=== PATIENT | female | born 1950 | race Caucasian/White ===

== ENCOUNTER 2017-10-27 12:34 | Observation (INO) | payer MEDICARE, OTHER ==
[2017-10-27] MEDS ORDERED: Zofran 4 MG/2 ML VIAL IV ONE (13:04)
[2017-10-27] MEDS ORDERED: MORPHINE SULFATE 4 MG INJ IV ONE (13:04)
[2017-10-27] MEDS ORDERED: Sodium Chloride 0.9% 1000 ML 1,000 ML IV STA (13:04)
--- NOTE | 2017-10-27 13:10 | ERPHSYRPT ---
- History of Present Illness Time Seen by Provider: 10/27/17 12:57 Historian: patient Exam Limitations: no limitations Patient Subjective Stated Complaint: patient has hernia supposed to see dr watt on saturday but pain is to severe and having trouble keeping food down. has not taken any of her home medicines since yesterday. Triage Nursing Assessment: patient alert and oriented x3, lung sounds clear, skin warm , dry , and intact. large umbilical hernia present, bowel sounds present x4, nontender to palpation, but experiences pain when moves around. pedal pulses present, pulses present bilateral radius. Physician History: 67-year-old morbidly obese white female arrives with complaint of abdominal pain states she's been unable to keep any food down's she states she's been vomiting for a week. She apparently has an appointment to see Dr. Watt next Saturday 5 days. she states she has not been taking her medications since yesterday because she is afraid she will vomit if she eats with them. Patient does have a history of umbilical hernia Past medical history includes COPD, arthritis, umbilical hernia, depression, fibroids, fibromyalgia, high blood pressure Old chart shows diet-controlled diabetes patient disputes this patient does have a history of chronic knee pain she is on MS Contin for this Past surgical history patient states she's had a D&C Social history denies tobacco alcohol or illicit drug use Timing/Duration: week(s) (one week) Activities at Onset: none Quality: cramping Abdominal Pain Onset Location: periumbilical Pain Radiation: no radiation Severity of Pain-Max: moderate Severity of Pain-Current: moderate Modifying Factors: Improves With: nothing Associated Symptoms: nausea, vomiting, No back, No chest pain, No diaphoresis, No diarrhea, No fever/chills, No fatigue, No headache, No heartburn, No loss of appetite, No neck pain, No rash, No shortness of breath, No syncope Previous symptoms: other (history of umbilical hernia) Allergies/Adverse Reactions: latex Allergy (Verified 07/17/16 13:23) erythromycin base Adverse Reaction (Severe, Verified 06/22/15 11:24) Nausea Sulfa (Sulfonamide Antibiotics) Adverse Reaction (Severe, Verified 06/22/15 11: 24) Nausea Home Medications: ALPRAZolam [Xanax 0.5 mg] 0.5 mg PO TID PRN PRN 06/22/15 [History] Duloxetine HCl 30 mg [Cymbalta 30 MG Capsule] 60 mg PO DAILY 06/22/15 [ History] Hydrocodone/Acetaminophen [Hydrocodone-Acetamin 10-325 mg] 1 each PO Q6H [History] Lisinopril 20 mg [Zestril 20 MG] 20 mg PO DAILY 06/22/15 [History] Magnesium Oxide 400 mg [Mag-Ox 400] 400 mg PO DAILY 06/22/15 [History] Morphine Sulfate Cr 60 mg [Ms Contin 60 mg] 60 mg PO Q12H 06/22/15 [ History] Albuterol 8 gm Mdi Hfa [Ventolin Hfa MDI] 2 puff IH Q4H 07/17/16 [History] Furosemide 40 mg [Lasix 40 MG] 40 mg PO DAILY 07/17/16 [History] Naproxen [Naprosyn] 500 mg PO BID 07/17/16 [History] Potassium Chloride 10 Meq Tab* [Klor Con 10 MEQ] 10 meq PO DAILY 07/17/16 [ History] Hx Tetanus, Diphtheria Vaccination/Date Given: Yes Hx Influenza Vaccination/Date Given: No Hx Pneumococcal Vaccination/Date Given: No Immunizations Up to Date: Yes - Review of Systems Constitutional: No Fever, No Chills Eyes: No Symptoms Ears, Nose, & Throat: No Symptoms Respiratory: No Cough, No Dyspnea Cardiac: No Chest Pain, No Edema, No Syncope Abdominal/Gastrointestinal: Abdominal Pain, Nausea, Vomiting, No Diarrhea, No Constipation, No Hematemesis, No Hematochezia, No Melena, No Dysphagia, No Appetite Changes Genitourinary Symptoms: No Dysuria Musculoskeletal: No Back Pain, No Neck Pain Skin: No Rash Neurological: No Dizziness, No Focal Weakness, No Sensory Changes Psychological: No Symptoms Endocrine: No Symptoms All Other Systems: Reviewed and Negative - Past Medical History Pertinent Past Medical History: Yes Neurological History: No Pertinent History, Other ENT History: No Pertinent History Cardiac History: Hypertension Respiratory History: COPD Endocrine Medical History: No Pertinent History Musculoskeletal History: Osteoarthritis GI Medical History: Hernia History: No Pertinent History Psycho-Social History: Depression Female Reproductive Disorders: Fibroids, Other Other Medical History: depression - Past Surgical History Past Surgical History: Yes Neuro Surgical History: No Pertinent History Cardiac: No Pertinent History Respiratory: No Pertinent History Gastrointestinal: No Pertinent History Genitourinary: No Pertinent History Musculoskeletal: No Pertinent History Female Surgical History: Other Other Surgical History: D&C - Social History Smoking Status: Never smoker Exposure to second hand smoke: Yes Drug Use: none Patient Lives Alone: No - Female History Hx Now: No - Nursing Vital Signs Nursing Vital Signs: Initial Vital Signs Temperature 98.9 F 10/27/17 12:35 Pulse Rate 117 H 10/27/17 12:35 Respiratory Rate 20 10/27/17 12:35 Blood Pressure 160/83 10/27/17 12:35 O2 Sat by Pulse Oximetry 98 10/27/17 12:35 Pain Scale Pain Intensity 4 - Physical Exam General Appearance: mild distress Eye Exam: PERRL/EOMI, eyes nml inspection Ears, Nose, Throat Exam: normal ENT inspection, pharynx normal, moist mucous membranes Neck Exam: normal inspection, non-tender, supple, full range of motion Respiratory Exam: normal breath sounds, lungs clear, No respiratory distress Cardiovascular Exam: regular rate/rhythm, normal heart sounds Gastrointestinal/Abdomen Exam: soft, normal bowel sounds, other (abdomen obese mild tenderness over her umbilicus, hernia at umbilicus) Back Exam: normal inspection, normal range of motion, No CVA tenderness, No vertebral tenderness Extremity Exam: normal inspection, normal range of motion, pelvis stable Neurologic Exam: alert, oriented x 3, cooperative, normal mood/affect, nml cerebellar function, sensation nml, No motor deficits Skin Exam: normal color, warm, dry SpO2 Interpretation: normal (98%) SpO2: 98 Oxygen Delivery: Room Air - Course Nursing assessment & vital signs reviewed: Yes - CT Exams Abdomen/Pelvis CT Interpretation: Tele-radiologist Report (him CT abdomen and pelvis with contrast:suspected duodenal ulcer disease with 2 droplets of air versus diverticuli focally within the fat. Periumbilical fat-containing and small bowel containing hernia without obstruction. Suspect small gallstones. Fatty large liver. Nodules noted within the lung bases this is incompletely visualized on the left.) Ordered Tests: Active Orders 24 hr Category Date Time Status Accucheck STAT Care 10/27/17 13:05 Active IV Insertion STAT Care 10/27/17 13:04 Active ABDOMEN AND PELVIS W CONTRAST [CT] Stat Exams 10/27/17 13:53 Taken AMYLASE Stat Lab 10/27/17 13:20 Completed CBC W DIFF Stat Lab 10/27/17 13:20 Completed CMP Stat Lab 10/27/17 13:20 Completed CULTURE,URINE Stat Lab 10/27/17 14:06 Received LIPASE Stat Lab 10/27/17 13:20 Completed UA W/ MICROSCOPIC Stat Lab 10/27/17 14:06 Completed Medication Summary Discontinued Medications Generic Name Dose Route Start Last Admin Trade Name Joaquimq PRN Reason Stop Dose Admin Sodium Chloride 1,000 mls @ 999 mls/hr 10/27/17 13:04 10/27/17 13:27 Sodium Chloride 0.9% 1000 Ml IV 10/27/17 14:04 999 mls/hr .Q1H1M STA Administration Sodium Chloride Confirm 10/27/17 13:25 Sodium Chloride 0.9% 1000 Ml Administered 10/27/17 13:26 Dose 1,000 mls @ ud .ROUTE .STK-MED ONE Morphine Sulfate 4 mg 10/27/17 13:04 10/27/17 13:27 Morphine Sulfate 4 Mg Inj IV 10/27/17 13:05 4 mg STAT ONE Administration Morphine Sulfate Confirm 10/27/17 13:25 Morphine Sulfate 4 Mg Inj Administered 10/27/17 13:26 Dose 4 mg .ROUTE .STK-MED ONE Ondansetron HCl 4 mg 10/27/17 13:04 10/27/17 13:27 Zofran 4 Mg/2 Ml Vial IV 10/27/17 13:05 4 mg STAT ONE Administration Ondansetron HCl Confirm 10/27/17 13:24 Zofran 4 Mg/2 Ml Vial Administered 10/27/17 13:25 Dose 4 mg .ROUTE .STK-MED ONE Promethazine HCl 12.5 mg 10/27/17 14:34 10/27/17 14:41 Phenergan 25 Mg Inj IV 10/27/17 14:35 12.5 mg STAT ONE Administration Promethazine HCl Confirm 10/27/17 14:37 Phenergan 25 Mg Inj Administered 10/27/17 14:38 Dose 25 mg .ROUTE .STK-MED ONE Lab/Rad Data: Laboratory Result Diagrams 10/27/17 13:20 10/27/17 13:20 Laboratory Results 10/27/17 10/27/17 10/27/17 Range/Units 14:06 13:20 13:20 WBC 8.3 (4.0-10.5) K/mm3 RBC 4.76 (4.1-5.4) M/mm3 Hgb 12.3 (12.0-16.0) gm/dl Hct 38.7 (35-47) % MCV 81.3 (78-100) fl MCH 25.8 L (26-32) pg MCHC 31.8 L (32-36) g/dl RDW 14.0 (11.5-14.0) % Plt Count 166 (150-450) K/mm3 MPV 11.9 H (6-9.5) fl Gran % 72.8 H (36.0-66.0) % Eos # (Auto) 0.15 (0-0.5) Absolute Lymphs (auto) 1.55 (1.0-4.6) Absolute Monos (auto) 0.52 (0.0-1.3) Lymphocytes % 18.7 L (24.0-44.0) % Monocytes % 6.3 (0.0-12.0) % Eosinophils % 1.8 (0.00-5.0) % Basophils % 0.4 (0.0-0.4) % Absolute Granulocytes 6.06 (1.4-6.9) Basophils # 0.03 (0-0.4) Sodium 140 (137-145) mmol/L Potassium 4.2 (3.5-5.1) mmol/L Chloride 102 (98-107) mmol/L Carbon Dioxide 29 (22-30) mmol/L Anion Gap 12.4 (5-15) MEQ/L BUN 12 (7-17) mg/dL Creatinine 0.82 (0.52-1.04) mg/dL Estimated GFR > 60.0 ML/MIN Glucose 127 H (74-106) mg/dL Calcium 9.4 (8.4-10.2) mg/dL Total Bilirubin 0.60 (0.2-1.3) mg/dL AST 22 (14-36) U/L ALT 20 (0-35) U/L Alkaline Phosphatase 97 (38-126) U/L Serum Total Protein 6.4 (6.3-8.2) g/dL Albumin 3.6 (3.5-5.0) g/dL Amylase 37 (30-110) U/L Lipase 46 (23-300) U/L Ur Collection Type CLEAN CATCH Urine Color YELLOW (YELLOW) Urine Appearance HAZY (CLEAR) Urine pH 8.0 (5-6) Ur Specific [place] 1.005 (1.005-1.025) Urine Protein NEGATIVE (Negative) Urine Ketones NEGATIVE (NEGATIVE) Urine Blood 5-10 (0-5) Seth/ul Urine Nitrite NEGATIVE (NEGATIVE) Urine Bilirubin NEGATIVE (NEGATIVE) Urine Urobilinogen NORMAL (0-1) mg/dL Ur Leukocyte Esterase 2+ (NEGATIVE) Urine Microscopic RBC 0-2 (0-2) /HPF Urine Microscopic WBC 5-10 (0-5) /HPF Ur Epithelial Cells MODERATE (FEW) /HPF Urine Bacteria FEW (NEGATIVE) /HPF Urine Culture Reflexed YES (NO) Urine Glucose NEGATIVE (NEGATIVE) mg/dL Specimen Received 10/27/17 1310 - Progress Progress: improved Progress Note: 10/27/17 16:24 Contacted by virtual radiology Patient with an anterior abdominal wall periumbilical hernia containing nonobstructive small bowel loops. There are inflammatory changes noted by the proximal third portion of the duodenum there are 2 droplets of air noted image 34 series 2. These could be within diverticula of the duodenum however, small focal droplets of air cannot be excluded from ulcer disease or small focal perforation no mucosal thickening. Patient with normal white count 10/27/17 16:34 I've discussed patient's case with Dr. Tompkins. Patient does have a normal white count she does not have exquisite pain she has however not eaten well for a week per her report. Labs are essentially normal. Will consider placing patient on observation providing IV fluids keep patient nothing by mouth provide pain medicine. Will plan on surgery consult and will discuss case with the surgeon. 10/27/17 16:43 Case is discussed with Dr. Hernandez, he feels it is unlikely to have a perforation patient does not have a white count and this would be an unusual location. Patient will be placed on observation To nothing by mouth. Diagnosis nausea and vomiting. Umbilical hernia Periumbilical pain - Departure Time of Disposition: 16:44 Departure Disposition: Observation Clinical Impression: Vomiting Qualifiers: Vomiting type: unspecified Vomiting Intractability: unspecified Nausea presence : with nausea Qualified Code(s): R11.2 - Nausea with vomiting, unspecified Abdominal pain Qualifiers: Abdominal location: periumbilical Qualified Code(s): R10.33 - Periumbilical pain Umbilical hernia Qualifiers: Obstruction and gangrene presence: without obstruction or gangrene Qualified Code(s): K42.9 - Umbilical hernia without obstruction or gangrene Condition: Fair Critical Care Time: No Referrals: YOKO WATT [Primary Care Provider] -
[2017-10-27] MEDS ORDERED: Zofran 4 MG/2 ML VIAL ONE (13:24)
[2017-10-27] MEDS ORDERED: Sodium Chloride 0.9% 1000 ML 1,000 ML ONE (13:25)
[2017-10-27] MEDS ORDERED: MORPHINE SULFATE 4 MG INJ ONE (13:25)
[2017-10-27 13:31] LABS: BASOPHIL % 0.4 % (0.0-0.4); Basophil (Absolute #) 0.03 (0-0.4); Eosinophil % 1.8 % (0.00-5.0); Eosinophil (Absolute #) 0.15 (0-0.5); Granulocyte Absolute (ANC) 6.06 (1.4-6.9); Granulocytes % 72.8 % (36.0-66.0); Hematocrit 38.7 % (35-47); Hemoglobin 12.3 gm/dl (12.0-16.0); Lymphocyte (Absolute #) 1.55 (1.0-4.6); Lymphocytes % 18.7 % (24.0-44.0); Mean Cell Volume 81.3 fl (78-100); Mean Corpuscular Hemoglobin 25.8 pg (26-32); Mean Corpuscular Hgb Concent. 31.8 g/dl (32-36); Mean Platelet Volume 11.9 fl (6-9.5); Monocyte (Absolute #) 0.52 (0.0-1.3); Monocytes % 6.3 % (0.0-12.0); Platelet Count 166 K/mm3 (150-450); Red Blood Count 4.76 M/mm3 (4.1-5.4); White Blood Count 8.3 K/mm3 (4.0-10.5)
[2017-10-27 13:48] LABS: ALBUMIN 3.6 g/dL (3.5-5.0); ALKALINE PHOSPHATASE 97 U/L (38-126); AMYLASE 37 U/L (30-110); ANION GAP 12.4 MEQ/L (5-15); BLOOD UREA NITROGEN 12 mg/dL (7-17); CHLORIDE 102 mmol/L (98-107); Calcium 9.4 mg/dL (8.4-10.2); Carbon Dioxide 29 mmol/L (22-30); Creatinine 1 0.82 mg/dL (0.52-1.04); Glucose 127 mg/dL (74-106); LIPASE 46 U/L (23-300); Potassium 4.2 mmol/L (3.5-5.1); SGOT/AST 22 U/L (14-36); SGPT/ALT 20 U/L (0-35); SODIUM 140 mmol/L (137-145); Total Protein 6.4 g/dL (6.3-8.2)
[2017-10-27 14:27] LABS: Appearance HAZY (CLEAR); Bilirubin NEGATIVE (NEGATIVE); Glucose NEGATIVE (NEGATIVE); Ketones NEGATIVE (NEGATIVE); Leukocyte Esterase 2+ (NEGATIVE); Nitrite NEGATIVE (NEGATIVE); Protein,Urine Dip NEGATIVE (Negative); Specific Gravity 1.005 (1.005-1.025); Urobilinogen NORMAL mg/dL (0-1)
[2017-10-27 14:34] LABS: Bacteria FEW /HPF (NEGATIVE); Epithelial Cells MODERATE /HPF (FEW); RBC 0-2 /HPF (0-2)
[2017-10-27] MEDS ORDERED: Phenergan 25 MG INJ IV ONE (14:34)
[2017-10-27] MEDS ORDERED: Phenergan 25 MG INJ ONE (14:37)
[2017-10-27] MEDS ORDERED: PROTONIX 40 MG IV IV ONE (17:25)
[2017-10-27] MEDS: PROTONIX 40 MG IV IV SCH (17:28)
[2017-10-27] MEDS: MORPHINE SULFATE 4 MG INJ IV PRN (17:28)
[2017-10-27] MEDS: Sodium Chloride 0.9% 1000 ML 1,000 ML IV SCH (17:31)
[2017-10-27] MEDS: Zofran 4 MG/2 ML VIAL IV PRN (19:10)
--- NOTE | 2017-10-27 21:11 | XRAY ---
Indication: Nausea and vomiting. Multiple contiguous axial images obtained through the abdomen and pelvis using 80 cc of Isovue-370 contrast only. Comparison: None Lung bases demonstrates tiny 3-4 mm left lateral noncalcified nodule. Heart is not enlarged. Noncontrasted stomach and bowel loops appear nonobstructed. Query descending and transverse duodenal wall thickening possible duodenitis. Moderate-sized umbilical hernia with herniated omental fat and small bowel loops without incarceration/obstruction. Normal appendix. Mild descending/sigmoid diverticulosis without diverticulitis. No free fluid/air. Minimal gallbladder sludge. Fatty liver. Remaining liver, gallbladder, pancreas, spleen, adrenal glands, kidneys, ureters, bladder, and uterus appear unremarkable. Mild aortoiliac calcifications. No AAA or pathologic retroperitoneal lymphadenopathy. Osseous structures intact with moderate degenerative changes throughout the spine. Impression: 1. Query duodenal wall thickening, possible duodenitis. Correlate clinically. 2. Moderate-sized umbilical hernia with herniated omental fat and small bowel loops. 3. Colonic diverticulosis. 4. Gallbladder sludge. 5. Fatty liver. 6. Left lower lobe noncalcified micronodule probably granulomatous in this demographic. Comment: Preliminary interpretation was made by [facility]. No discrepancy. CTDI 23.68
[2017-10-28] MEDS: Zosyn 3.375GM/100 Ml D5W 3.375 GM/100 ML IVPB IV SCH ×5 (01:22→23:43)
[2017-10-28] MEDS ORDERED: FEVERALL 650 MG ONE (01:33)
[2017-10-28] MEDS ORDERED: FEVERALL 650 MG PR PRN (01:38)
[2017-10-28] MEDS: Zofran 4 MG/2 ML VIAL IV PRN ×3 (01:40→20:06)
[2017-10-28] MEDS: Sodium Chloride 0.9% 1000 ML 1,000 ML IV SCH ×3 (03:24→23:43)
[2017-10-28] MEDS: MORPHINE SULFATE 4 MG INJ IV PRN (04:49)
[2017-10-28 05:30] LABS: Granulocyte Absolute (ANC) 3.72 (1.4-6.9); Hematocrit 36.7 % (35-47); Hemoglobin 11.5 gm/dl (12.0-16.0); Mean Cell Volume 81.4 fl (78-100); Mean Corpuscular Hgb Concent. 31.3 g/dl (32-36); Mean Platelet Volume 11.5 fl (6-9.5); Platelet Count 128 K/mm3 (150-450); Red Blood Count 4.51 M/mm3 (4.1-5.4); Red Cell Distribution Width 14.1 % (11.5-14.0); White Blood Count 4.6 K/mm3 (4.0-10.5)
[2017-10-28 05:36] LABS: Mean Corpuscular Hemoglobin 25.4 pg (26-32)
[2017-10-28 05:42] LABS: ALBUMIN 3.1 g/dL (3.5-5.0); ANION GAP 11.4 MEQ/L (5-15); BILIRUBIN,TOTAL 0.9 mg/dL (0.2-1.3); Calcium 8.7 mg/dL (8.4-10.2); Creatinine 1 1.06 mg/dL (0.52-1.04); Potassium 4.1 mmol/L (3.5-5.1); Total Protein 5.8 g/dL (6.3-8.2)
[2017-10-28 05:52] LABS: Lymphocytes 4 % (24-44); Monocyte 1 % (0.0-12.0); Neutrophils 95 % (36.0-66.0); Total Cells Counted 100
[2017-10-28 05:53] LABS: Platelet Estimate NORMAL (NORMAL)
[2017-10-28] MEDS ORDERED: Ventolin Hfa MDI IH PRN (08:10)
[2017-10-28] MEDS ORDERED: xanAX 0.5 MG PO PRN (08:10)
[2017-10-28] MEDS ORDERED: PROVENTIL COMMON CANISTER IH PRN (08:15)
[2017-10-28] MEDS: Cymbalta 30 MG Capsule PO SCH (08:54)
[2017-10-28] MEDS: Zestril 20 MG PO SCH (08:55)
[2017-10-28] MEDS: Klor Con 10 MEQ PO SCH (08:55)
[2017-10-28] MEDS: MS CONTIN 30 MG PO SCH ×3 (08:55→21:52)
[2017-10-28] MEDS: Lasix 40 MG PO SCH (08:55)
[2017-10-28] MEDS: PROTONIX 40 MG IV IV SCH ×2 (08:55→21:52)
[2017-10-28] MEDS: MAG-OX 400 PO SCH (08:55)
[2017-10-28] MEDS ORDERED: MORPHINE SULFATE 30 MG PO SCH (10:00)
--- NOTE | 2017-10-28 10:21 | HP ---
CHIEF COMPLAINT: Abdominal pain. HISTORY OF PRESENT ILLNESS: The patient is a 67 year-old white female who has been having problems with abdominal pain over the past few weeks. She currently has increasing abdominal pain and presented herself to the emergency room where she was subsequently admitted to the hospital for further evaluation and management. PAST MEDICAL HISTORY: Significant for chronic obstructive pulmonary disease, arthritis, umbilical hernia, depression, uterine fibroids, fibromyalgia, hypertension, degenerative joint disease of the knees. PAST SURGICAL HISTORY: D&C. FAMILY HISTORY: Noncontributory. SOCIAL HISTORY: She does not smoke or drink. PHYSICAL EXAMINATION: Revealed a morbidly obese white female currently in no obvious distress. Most recent vital signs from the emergency room showed temperature 98.9F, pulse 117, respiratory rate 20, blood pressure 160/93. O2 saturation 98% on room air. HEENT: Normocephalic, atraumatic. Pupils equal round reactive to light. Extraocular movements intact. Oropharynx is dry. NECK: Supple without lymphadenopathy, thyromegaly or JVD. CHEST: Clear to auscultation with good air movement bilaterally. HEART: Regular rate and rhythm without murmurs, rubs or gallops. ABDOMEN: Diffusely tender. There is periumbilical hernia area noted which is quite tender. No palpable masses are felt otherwise. EXTREMITIES: Without clubbing, canosis or edema. NEUROLOGIC: The patient is alert and oriented x3. LAB DATA AND TESTS: CT scan showed what appeared to be possible duodenal ulcer with micro-perforation and also noted periumbilical fat containing small bowel, also suspect gallbladder stones and fatty liver. The patient's labs otherwise showed her white blood cell count 8,300, hemoglobin 12.3, PLT count 166,000. Metabolic panel was essentially normal other than sugar at 127. UA was likewise essentially normal, specific gravity 1.005. ASSESSMENT: Abdominal pain, hernia, duodenitis, possible duodenal ulcer with micro-perforation and possible gallbladder stones. Surgical consultation will be obtained. The patient has been placed on Zosyn empirically and will likely need herniorrhaphy and possible attention paid to her duodenum with evaluation by the surgeon as it potentially contains perforation.
[2017-10-29] MEDS: Zosyn 3.375GM/100 Ml D5W 3.375 GM/100 ML IVPB IV SCH ×2 (05:26→11:52)
[2017-10-29] MEDS: MS CONTIN 30 MG PO SCH ×2 (05:26→14:48)
--- NOTE | 2017-10-29 08:12 | CONS ---
CONSULT DATE: 10/28/2017 This patient is seen for Dr. Charanjit Hernandez who was consulted over the weekend when the patient came in. HISTORY: A 67 year-old morbidly obese female came in and was having some nausea, vomiting and some upper abdominal pain. She does have chronic ventral hernia that she has had for years. It has bowel loops in it that are not incarcerated, soft. PAST MEDICAL HISTORY: Obesity, chronic obstructive pulmonary disease, arthritis. She has had chronic hernia. She has depression, fibromyalgia, hypertension, chronic back and neck problems. She had a neck injection. She is followed by the pain clinic. She is on oral morphine down in [place]. She has known about this hernia for some time. PAST SURGICAL HISTORY: She had D&C in the past. HOME MEDICATIONS: Includes Xanax, Cymbalta. She takes hydrocodone 10 as well as morphine sulfate 60, MS Contin 60. She takes magnesium oxide, lisinopril, Albuterol MDI HFA, Furosemide, Naprosyn and potassium chloride. ALLERGIES: LATEX, ERYTHROMYCIN BASE, SULFA. FAMILY HISTORY: Negative in regards to this problem. SOCIAL HISTORY: She quit smoking 20 years ago. No alcohol abuse. REVIEW OF SYSTEMS: Twelve systems reviewed pertinent for obesity. She does have some stasis dermatitis. She did have loose bowel movements since she has been on antibiotics here. No chest pain or palpitations, pertinent for multiple chronic pain, chronic lung disease, chronic hernia, chronic illnesses. PHYSICAL EXAMINATION: GENERAL: No acute distress. HEENT: Sclera nonicteric. NECK: No JVD. CHEST: Equal excursion, nonlabored breathing. CVS: Regular rate and rhythm. ABDOMEN: Obese, soft. She has got some mild tenderness in right upper quadrant. No rebound currently. She has got chronic soft mid abdominal ventral hernia. LAB DATA AND TESTS: White blood cell count 8.2 on admission. Liver function tests unremarkable. Hemoglobin 12.3, PLT 166,000. CT scan showed question of inflammation duodenum, question of some micro-perforation. She has some maybe small stones or sludge in the gallbladder. She has chronic abdominal hernia with some bowel but not obstructing. No evidence of strangulation or incarceration. IMPRESSION: Some abdominal pain, nausea, vomiting. CT scan suggests possible duodenitis, duodenal ulcer possible micro-perforation. Continue bowel rest. Increase Protonix to b.i.d. likely would benefit from letting this heal a little longer possibly doing Gastrografin, upper GI studies tomorrow. There is no evidence of leak. Advance her diet as her hernia is chronic and does not need emergent intervention. Should she have persistent duodenal ulcer, if she needed surgical intervention regarding that could consider repairing the hernia but we are not able to repair with the prison mesh so likely would have much higher recurrence rate. Otherwise continue bowel rest. Start the Gastrografin upper GI tomorrow if no leak, maybe advance her diet. If she is able to advance her diet she could be seen as an outpatient follow up with Dr. Hernandez for outpatient endoscopy and eventual elective hernia repair. Otherwise if there is no leak and she is unable to keep diet down, could consider further biliary work up although there is no wall thickening or suggestion of acute cholecystitis at this time. Either way no emergent surgery necessary. I am seeing this patient for Dr. Charanjit Hernandez who will likely be the one to proceed. Eventually she will need elective repair of hernia. It is not emergent now as it is soft and do not feel it is causing her current issues with ulcer disease and micro-perforation or she could have some variation of biliary colic. Either way she needs continued bowel rest, proton pump inhibitor, follow up with Gastrografin upper GI. If no leak advance her diet. If she is able to advance her diet in the hospital follow up in the office with Dr. Hernandez for follow up endoscopy who will eventually address her ventral hernia. She expressed her understanding. No emergent surgery necessary at this point. Again, this patient was seen for Dr. Charanjit Hernandez who was electronic scale assembler and tester when the consult came in. Thank you for the consult.
[2017-10-29] MEDS: Zestril 20 MG PO SCH ×2 (09:49→10:25)
[2017-10-29] MEDS: Klor Con 10 MEQ PO SCH ×2 (09:49→10:25)
[2017-10-29] MEDS: Cymbalta 30 MG Capsule PO SCH ×2 (09:49→10:25)
[2017-10-29] MEDS: MAG-OX 400 PO SCH ×2 (09:49→10:25)
[2017-10-29] MEDS: Lasix 40 MG PO SCH (09:49)
[2017-10-29] MEDS: PROTONIX 40 MG IV IV SCH ×2 (09:49→10:25)
[2017-10-29] MEDS ORDERED: ENOXAPARIN SODIUM SQ SCH (10:00)
--- NOTE | 2017-10-29 10:20 | XRAY ---
Indication: Nausea and vomiting. Burning sensation. Known umbilical hernia. Single contrast upper GI exam was performed using Gastrografin as ordered. Due to patient body habitus and weight limit of the fluoroscopy table, the exam was performed with the patient standing. Patient ingested diluted Gastrografin without miss swallow or aspiration. Esophagus is normal in course and caliber without focal stricture, obstruction, or filling defect. No hiatal hernia. Gastrografin freely emptied into the stomach. Stomach is mildly distended. No obvious acute ulcerations or filling defect. Normal duodenal cap and sweep. Impression: Negative limited single contrast upper GI exam. Approximately 0.9 minute fluoroscopy used.
[2017-10-29 16:19] VITALS: BP 120/78; PULSE 92; O2SAT 98
--- NOTE | 2017-10-31 10:13 | DS ---
DISCHARGE DIAGNOSES: 1) UMBILICAL HERNIAS WITH LOOPS OF BOWEL PRESENT. 2) PEPTIC ULCER DISEASE WITH POSSIBLE MICROPERFORATION. 3) CHOLELITHIASIS. CONSULTANTS: Dr. Wero Boone. HOSPITAL COURSE: The patient is a 67 year-old white female who presented to the emergency room with abdominal pain. She is known to have hernia. On evaluation in the emergency room a CT scan showed possible duodenal ulcer with tiny air pockets concerning for the possibility of microperforation. The patient had surgical consultation from Dr. Boone who felt that she was not an acute abdomen. He thought the patient should have hernia repair under elective basis. The patient was placed empirically on IV antibiotics of Zosyn for coverage. The patient did develop positive urine culture which sensitive to the Zosyn. The patient had a Gastrografin upper GI examination which revealed no perforation and no obstruction. The patient appeared to be doing well as far as ambulation and pain level and moving around in the bed nicely. She was able to get up and move around and was given diet which she tolerated. She was felt to be ready for discharge home by the afternoon of 10/29/2017 with follow up in Dr. Boone's office within the week and my office as well. She is to return to the hospital for any problems with increasing abdominal pain in the interim.
== END 2017-10-29 16:35 | disposition home or self-care (01) ==
LOC: ED 12:34 → MED SURG 17:04
PROVIDERS: ADMIT Family Medicine; ATTEND Family Medicine
DX: K42.0 Umbilical hernia with obstruction, without gangrene (principal); K26.9 Duodenal ulcer, unspecified as acute or chronic, without hemorrhage or perforation; K80.20 Calculus of gallbladder without cholecystitis without obstruction; J44.9 Chronic obstructive pulmonary disease, unspecified; M19.90 Unspecified osteoarthritis, unspecified site; F32.9 Major depressive disorder, single episode, unspecified; D25.9 Leiomyoma of uterus, unspecified; M79.7 Fibromyalgia; I10 Essential (primary) hypertension; M17.9 Osteoarthritis of knee, unspecified; K59.00 Constipation, unspecified; E66.01 Morbid (severe) obesity due to excess calories; E11.9 Type 2 diabetes mellitus without complications; I87.2 Venous insufficiency (chronic) (peripheral); Z79.899 Other long term (current) drug therapy; Z87.891 Personal history of nicotine dependence
CPT/HCPCS: 36000; 36415; 74177; 74246; 80053; 81000; 82150; 82962; 83690; 85025; 87040; 87077; 87086; 87186; 94760; 96360; 96374; 96375; 99285; G0378; J1650; J2270; J2405; J2543; J2550; A9270-GY

== ENCOUNTER 2017-12-26 09:30 | Day surgery (SDC) | payer MEDICARE, OTHER ==
[~2017-12-26 09:30] MED LIST: Lactated Ringers 1,000 ML IV ONE; Lactated Ringers 1,000 ML IV SCH
[2017-12-26] MEDS ORDERED: Ketamine HCl 50 MG/ML IV ONE (09:31)
[2017-12-26] MEDS ORDERED: DIPRIVAN 200 MG/20 ML IV ONE (09:31)
[2017-12-26 14:08] VITALS: PULSE 95
[2017-12-26 14:09] VITALS: BP 142/75; O2SAT 95
--- NOTE | 2017-12-26 14:15 | OP ---
SURGERY DATE/TIME: 12/26/2017 1243 PREOPERATIVE DIAGNOSIS: Gastritis and nausea. POSTOPERATIVE DIAGNOSIS: Pyloric channel ulcer with grade 2 to 3 gastroesophageal reflux disease. PROCEDURE: EGD with cold biopsy. SURGEON: Charanjit Hernandez M.D. ANESTHESIA: MAC. COMPLICATIONS: None. CONDITION: Stable. INDICATION: A patient requiring evaluation. DESCRIPTION OF PROCEDURE: Taken to endoscopy. MAC sedation provided. Scope introduced. Pharyngoesophageal junction normal. Esophagus normal down to 3 cm before the gastroesophageal junction there were large streaks of esophagitis grade 2 to 3. There was a small hiatal hernia. Fundus, body, antrum normal. Pyloric channel there was an 8 mm healing ulcer anteriorly. Duodenal bulb, second portion normal. Scope withdrawn and looped upon itself. There was some minimal hiatal hernia. Scope withdrawn. The patient is continued on Protonix. Findings discussed with the daughter in the waiting room.
== END 2017-12-26 14:10 | disposition home or self-care (01) ==
LOC: SDC 09:30
PROVIDERS: ATTEND Surgery
DX: K25.9 Gastric ulcer, unspecified as acute or chronic, without hemorrhage or perforation (principal); K21.9 Gastro-esophageal reflux disease without esophagitis
CPT/HCPCS: 87081; J2704

== ENCOUNTER 2018-10-14 10:31 | Emergency (ER) | payer MEDICARE, OTHER ==
[2018-10-14] MEDS ORDERED: ANTIVERT 25 MG PO ONE (10:48)
[2018-10-14] MEDS ORDERED: Sodium Chloride 0.9% 1000 ML 1,000 ML IV STA (10:48)
--- NOTE | 2018-10-14 10:51 | ERPHSYRPT ---
- History of Present Illness Time Seen by Provider: 10/14/18 10:49 Source: patient Physician History: mild to mod dizzy and vertigo suddenly today, no injury, no NV, no fever, no hearing loss Allergies/Adverse Reactions: latex Allergy (Intermediate, Verified 12/26/17 10:28) Blisters erythromycin base Adverse Reaction (Severe, Verified 12/26/17 10:28) Nausea Sulfa (Sulfonamide Antibiotics) Adverse Reaction (Severe, Verified 12/26/17 10: 28) Nausea Home Medications: Duloxetine HCl 30 mg [Cymbalta 30 MG Capsule] 60 mg PO DAILY 06/22/15 [ History] Lisinopril 20 mg [Zestril 20 MG] 20 mg PO DAILY 06/22/15 [History] Magnesium Oxide 400 mg [Mag-Ox 400] 400 mg PO DAILY 06/22/15 [History] Albuterol 8 gm Mdi Hfa [Ventolin Hfa MDI] 2 puff IH Q4H PRN 07/17/16 [ History] Potassium Chloride 10 Meq Tab* [Klor Con 10 MEQ] 10 meq PO DAILY 07/17/16 [ History] Multivitamin [Multivitamins] 1 each PO DAILY 12/26/17 [History] PANTOPRAZOLE 40 mg Tablet [Protonix 40MG Tablet] 40 mg PO HS 12/26/17 [ History] Hx Tetanus, Diphtheria Vaccination/Date Given: Yes Hx Influenza Vaccination/Date Given: No Hx Pneumococcal Vaccination/Date Given: No - Review of Systems Constitutional: No Fever Eyes: No Eye Redness, No Vision Changes Ears, Nose, & Throat: No Nose Congestion, No Mouth Pain Respiratory: No Dyspnea Cardiac: No Chest Pain Abdominal/Gastrointestinal: No Abdominal Pain, No Vomiting Genitourinary Symptoms: No Frequency Musculoskeletal: No Back Pain, No Neck Pain Skin: No Rash Neurological: Dizziness, No Focal Weakness, No Headache - Past Medical History Pertinent Past Medical History: Yes Neurological History: No Pertinent History, Other ENT History: No Pertinent History Cardiac History: Congestive Heart Failure, Hypertension Respiratory History: COPD Endocrine Medical History: No Pertinent History Musculoskeletal History: Osteoarthritis GI Medical History: GERD, Hernia History: No Pertinent History Psycho-Social History: Anxiety, Depression Female Reproductive Disorders: Fibroids, Other Other Medical History: depression. - Past Surgical History Past Surgical History: Yes Neuro Surgical History: No Pertinent History Cardiac: No Pertinent History Respiratory: No Pertinent History Gastrointestinal: No Pertinent History Genitourinary: No Pertinent History Musculoskeletal: No Pertinent History Female Surgical History: Other Other Surgical History: D&C, dental extractions - Social History Smoking Status: Former smoker Exposure to second hand smoke: No Drug Use: none Patient Lives Alone: No - Nursing Vital Signs Nursing Vital Signs: Initial Vital Signs Temperature 98.4 F 10/14/18 10:37 Pulse Rate 106 H 10/14/18 10:37 Respiratory Rate 20 10/14/18 10:37 Blood Pressure 125/77 10/14/18 10:37 O2 Sat by Pulse Oximetry 97 10/14/18 10:37 Pain Scale Pain Intensity 4 - Physical Exam General Appearance: no apparent distress Eye Exam: PERRL/EOMI Ears, Nose, Throat Exam: moist mucous membranes Neck Exam: No meningismus Respiratory Exam: normal breath sounds, No respiratory distress Cardiovascular Exam: regular rate/rhythm Gastrointestinal/Abdomen Exam: soft, No tenderness Back Exam: normal inspection Extremity Exam: normal range of motion Neurologic Exam: alert, oriented x 3, cooperative, technical support specialist II-XII nml as tested Skin Exam: normal color, warm, dry - Course Nursing assessment & vital signs reviewed: Yes EKG Interpreted by Me: Sinus Rhythm, Other (no stemi) - CT Exams Head CT Interpretation: Negative, Discussed w/radiologist Ordered Tests: Active Orders 24 hr Category Date Time Status EKG-ER Only STAT Care 10/14/18 10:48 Active IV Insertion STAT Care 10/14/18 10:48 Active HEAD WITHOUT CONTRAST [CT] Stat Exams 10/14/18 10:48 Completed CBC W DIFF Stat Lab 10/14/18 11:09 Completed CMP Stat Lab 10/14/18 11:09 Completed ETHYL ALCOHOL Stat Lab 10/14/18 11:09 Completed TROPONIN Q3H Lab 10/14/18 11:09 Completed TROPONIN Q3H Lab 10/14/18 14:00 Ordered TROPONIN Q3H Lab 10/14/18 17:00 Ordered TROPONIN Q3H Lab 10/14/18 20:00 Ordered TROPONIN Q3H Lab 10/14/18 23:00 Ordered Urine Triage Profile Stat Lab 10/14/18 11:09 Completed Medication Summary Discontinued Medications Generic Name Dose Route Start Last Admin Trade Name Freq PRN Reason Stop Dose Admin Sodium Chloride 1,000 mls @ 999 mls/hr 10/14/18 10:48 10/14/18 11:30 Sodium Chloride 0.9% 1000 Ml IV 10/14/18 11:48 999 mls/hr .Q1H1M STA Administration Sodium Chloride Confirm 10/14/18 11:12 Sodium Chloride 0.9% 1000 Ml Administered 10/14/18 11:13 Dose 1,000 mls @ ud .ROUTE .STK-MED ONE Meclizine HCl 25 mg 10/14/18 10:48 10/14/18 11:30 Antivert 25 Mg PO 10/14/18 10:49 25 mg STAT ONE Administration Meclizine HCl Confirm 10/14/18 11:12 Antivert 25 Mg Administered 10/14/18 11:13 Dose 25 mg .ROUTE .STK-MED ONE Lab/Rad Data: Laboratory Result Diagrams 10/14/18 11:09 10/14/18 11:09 Laboratory Results 10/14/18 10/14/18 10/14/18 Range/Units 11:09 11:09 11:09 WBC 9.3 (4.0-10.5) K/mm3 RBC 4.84 (4.1-5.4) M/mm3 Hgb 12.3 (12.0-16.0) gm/dl Hct 39.7 (35-47) % MCV 82.0 (78-100) fl MCH 25.4 L (26-32) pg MCHC 31.0 L (32-36) g/dl RDW 13.9 (11.5-14.0) % Plt Count 168 (150-450) K/mm3 MPV 11.1 H (6-9.5) fl Gran % 73.3 H (36.0-66.0) % Eos # (Auto) 0.16 (0-0.5) Absolute Lymphs (auto) 1.77 (1.0-4.6) Absolute Monos (auto) 0.54 (0.0-1.3) Lymphocytes % 19.0 L (24.0-44.0) % Monocytes % 5.8 (0.0-12.0) % Eosinophils % 1.7 (0.00-5.0) % Basophils % 0.2 (0.0-0.4) % Absolute Granulocytes 6.82 (1.4-6.9) Basophils # 0.02 (0-0.4) Sodium 139 (137-145) mmol/L Potassium 4.1 (3.5-5.1) mmol/L Chloride 101 (98-107) mmol/L Carbon Dioxide 28 (22-30) mmol/L Anion Gap 13.7 (5-15) MEQ/L BUN 15 (7-17) mg/dL Creatinine 0.87 (0.52-1.04) mg/dL Estimated GFR > 60.0 ML/MIN Glucose 130 H (74-106) mg/dL Calcium 9.3 (8.4-10.2) mg/dL Total Bilirubin 0.50 (0.2-1.3) mg/dL AST 16 (14-36) U/L ALT 13 (0-35) U/L Alkaline Phosphatase 95 (38-126) U/L Troponin I < 0.012 (0.000-0.034) ng/mL Serum Total Protein 7.0 (6.3-8.2) g/dL Albumin 3.7 (3.5-5.0) g/dL Urine Opiates Level (NEGATIVE) Ur Methadone (NEGATIVE) Urine Barbiturates (NEGATIVE) Ur Phencyclidine (PCP) (NEGATIVE) Urine Amphetamine (NEGATIVE) U Benzodiazepine Level (NEGATIVE) Urine Cocaine (NEGATIVE) Urine Marijuana (THC) (NEGATIVE) Ethyl Alcohol < 10 (0-10) mg/dL 10/14/18 Range/Units 11:09 WBC (4.0-10.5) K/mm3 RBC (4.1-5.4) M/mm3 Hgb (12.0-16.0) gm/dl Hct (35-47) % MCV (78-100) fl MCH (26-32) pg MCHC (32-36) g/dl RDW (11.5-14.0) % Plt Count (150-450) K/mm3 MPV (6-9.5) fl Gran % (36.0-66.0) % Eos # (Auto) (0-0.5) Absolute Lymphs (auto) (1.0-4.6) Absolute Monos (auto) (0.0-1.3) Lymphocytes % (24.0-44.0) % Monocytes % (0.0-12.0) % Eosinophils % (0.00-5.0) % Basophils % (0.0-0.4) % Absolute Granulocytes (1.4-6.9) Basophils # (0-0.4) Sodium (137-145) mmol/L Potassium (3.5-5.1) mmol/L Chloride (98-107) mmol/L Carbon Dioxide (22-30) mmol/L Anion Gap (5-15) MEQ/L BUN (7-17) mg/dL Creatinine (0.52-1.04) mg/dL Estimated GFR ML/MIN Glucose (74-106) mg/dL Calcium (8.4-10.2) mg/dL Total Bilirubin (0.2-1.3) mg/dL AST (14-36) U/L ALT (0-35) U/L Alkaline Phosphatase (38-126) U/L Troponin I (0.000-0.034) ng/mL Serum Total Protein (6.3-8.2) g/dL Albumin (3.5-5.0) g/dL Urine Opiates Level POSITIVE (NEGATIVE) Ur Methadone NEGATIVE (NEGATIVE) Urine Barbiturates NEGATIVE (NEGATIVE) Ur Phencyclidine (PCP) NEGATIVE (NEGATIVE) Urine Amphetamine NEGATIVE (NEGATIVE) U Benzodiazepine Level NEGATIVE (NEGATIVE) Urine Cocaine NEGATIVE (NEGATIVE) Urine Marijuana (THC) NEGATIVE (NEGATIVE) Ethyl Alcohol (0-10) mg/dL - Progress Progress Note: 10/14/18 12:50 see your doctor, return if worse, antivert - Departure Departure Disposition: Home Clinical Impression: Vertigo Condition: Stable Critical Care Time: No Referrals: YOKO SANCHEZ [Primary Care Provider] - Instructions: Vertigo (a Type of Dizziness) (DC) Prescriptions: Meclizine HCl 25 mg [Antivert 25 mg] 1 tab PO Q6H PRN PRN #24 tablet PRN Reason: dizziness
[2018-10-14 11:12] LABS: BASOPHIL % 0.2 % (0.0-0.4); Basophil (Absolute #) 0.02 (0-0.4); Eosinophil % 1.7 % (0.00-5.0); Eosinophil (Absolute #) 0.16 (0-0.5); Granulocyte Absolute (ANC) 6.82 (1.4-6.9); Granulocytes % 73.3 % (36.0-66.0); Hematocrit 39.7 % (35-47); Hemoglobin 12.3 gm/dl (12.0-16.0); Lymphocyte (Absolute #) 1.77 (1.0-4.6); Mean Corpuscular Hemoglobin 25.4 pg (26-32); Mean Platelet Volume 11.1 fl (6-9.5); Monocyte (Absolute #) 0.54 (0.0-1.3); Monocytes % 5.8 % (0.0-12.0); Platelet Count 168 K/mm3 (150-450); Red Blood Count 4.84 M/mm3 (4.1-5.4); Red Cell Distribution Width 13.9 % (11.5-14.0); White Blood Count 9.3 K/mm3 (4.0-10.5)
[2018-10-14] MEDS ORDERED: Sodium Chloride 0.9% 1000 ML 1,000 ML ONE (11:12)
[2018-10-14] MEDS ORDERED: ANTIVERT 25 MG ONE (11:12)
[2018-10-14 11:26] LABS: ALBUMIN 3.7 g/dL (3.5-5.0); ALKALINE PHOSPHATASE 95 U/L (38-126); ANION GAP 13.7 MEQ/L (5-15); BLOOD UREA NITROGEN 15 mg/dL (7-17); CHLORIDE 101 mmol/L (98-107); Calcium 9.3 mg/dL (8.4-10.2); Carbon Dioxide 28 mmol/L (22-30); Creatinine 1 0.87 mg/dL (0.52-1.04); Glucose 130 mg/dL (74-106); Potassium 4.1 mmol/L (3.5-5.1); SGOT/AST 16 U/L (14-36); SGPT/ALT 13 U/L (0-35); SODIUM 139 mmol/L (137-145)
[2018-10-14 11:27] LABS: ETHYL ALCOHOL < 10 mg/dL (0-10)
--- NOTE | 2018-10-14 11:34 | XRAY ---
Indication: Dizziness. No known injury. Multiple contiguous axial images obtained through the head without contrast. Comparison: None Normal appearing brain parenchyma, ventricles, and bony calvarium. Visualized paranasal sinuses and mastoid air cells are clear. Impression: Normal CT head without contrast exam. CT DI 68.15
[2018-10-14 11:38] LABS: Amphetamine,Urine NEGATIVE (NEGATIVE); Barbiturate,Urine NEGATIVE (NEGATIVE); Benzodiazepine,Urine NEGATIVE (NEGATIVE); Cocaine,Urine NEGATIVE (NEGATIVE); Methadone,Urine NEGATIVE (NEGATIVE); Opiate,Urine POSITIVE (NEGATIVE); PCP,Urine NEGATIVE (NEGATIVE); THC,Urine NEGATIVE (NEGATIVE)
[2018-10-14 12:25] VITALS: PULSE 86; O2SAT 98
[2018-10-14 13:15] VITALS: BP 131/81
== END 2018-10-14 13:24 | disposition home or self-care (01) ==
LOC: ED 10:31
DX: R42 Dizziness and giddiness (principal); Z79.899 Other long term (current) drug therapy
CPT/HCPCS: 36000; 36415; 70450; 80053; 80307; 84484; 85025; 93005; 96360; 99284; G0480; 96374; A9270-GY

== ENCOUNTER 2019-07-21 15:01 | Emergency (ER) | payer MEDICARE, OTHER ==
--- NOTE | 2019-07-21 15:18 | ERPHSYRPT ---
- History of Present Illness Time Seen by Provider: 07/21/19 15:18 Source: patient Exam Limitations: no limitations Physician History: Patient is a 69-year-old female with a past medical history significant for bilateral knee pain right greater than left, chronic knee pain in which she follows with pain management and is currently taking 2 mg of Dilaudid 3-4 times a day, and obesity presents with a chief complaint of right knee pain. The patient states that she has right knee pain daily that worsens whenever she weight bears and with exertion that becomes worse towards the end of the day. She also endorsed having left knee pain but is not as bad as her right knee. The pain is reportedly sharp and increased over a week ago when she reportedly was walking and twisted her knee and felt a "pop". She has been told that she has osteoarthritis of both knees and has been recommended to have a right total knee replacement however she has not followed up for this nor has she followed with a orthopedic surgeon recently. She states she is done physical therapy in the past for knee pain but it does not help. She was recently started on Dilaudid p.o. after being transitioned from morphine and going through withdrawals by her pain management doctor. She denies any recent falls, fever, chills, erythema or increased warmth noted to both knees, specifically the right knee. The patient reported is not anticoagulated. She also endorsed having a yeast infection to her groin and lower pannus and is requesting nystatin to take for this. Allergies/Adverse Reactions: latex Allergy (Intermediate, Verified 07/21/19 15:41) Blisters erythromycin base Adverse Reaction (Severe, Verified 07/21/19 15:41) Nausea Sulfa (Sulfonamide Antibiotics) Adverse Reaction (Severe, Verified 07/21/19 15: 41) Nausea Home Medications: Duloxetine HCl 30 mg [Cymbalta 30 MG Capsule] 60 mg PO DAILY 06/22/15 [ History] Lisinopril 20 mg [Zestril 20 MG] 20 mg PO DAILY 06/22/15 [History] Magnesium Oxide 400 mg [Mag-Ox 400] 400 mg PO DAILY 06/22/15 [History] Potassium Chloride 10 Meq Tab* [Klor Con 10 MEQ] 10 meq PO DAILY 02/07/17 [ History] Hx Tetanus, Diphtheria Vaccination/Date Given: Yes Hx Influenza Vaccination/Date Given: No Hx Pneumococcal Vaccination/Date Given: No - Review of Systems Constitutional: No Fever, No Chills Respiratory: No No Symptoms Abdominal/Gastrointestinal: No No Symptoms Musculoskeletal: Other (Bilateral knee pain, R>L), No Fall, No Injury Skin: No Symptoms Neurological: No Symptoms All Other Systems: Reviewed and Negative - Past Medical History Pertinent Past Medical History: Yes Neurological History: No Pertinent History, Other ENT History: No Pertinent History Cardiac History: Congestive Heart Failure, Hypertension Respiratory History: COPD Endocrine Medical History: No Pertinent History Musculoskeletal History: Osteoarthritis GI Medical History: GERD, Hernia History: No Pertinent History Psycho-Social History: Anxiety, Depression Female Reproductive Disorders: Fibroids, Other Other Medical History: depression. - Past Surgical History Past Surgical History: Yes Neuro Surgical History: No Pertinent History Cardiac: No Pertinent History Respiratory: No Pertinent History Gastrointestinal: No Pertinent History Genitourinary: No Pertinent History Musculoskeletal: No Pertinent History Female Surgical History: Other Other Surgical History: D&C, dental extractions - Social History Smoking Status: Former smoker Exposure to second hand smoke: No Drug Use: none Patient Lives Alone: No - Nursing Vital Signs Nursing Vital Signs: Initial Vital Signs Temperature 98.1 F 07/21/19 15:41 Pulse Rate 90 07/21/19 15:41 Respiratory Rate 18 07/21/19 15:41 Blood Pressure 123/58 07/21/19 15:41 O2 Sat by Pulse Oximetry 99 07/21/19 15:41 Pain Scale Pain Intensity 2 - Physical Exam General Appearance: no apparent distress, obese Eye Exam: No PERRL/EOMI, No EOM palsy/anisocoria Cardiovascular Exam: regular rate/rhythm, normal peripheral pulses, capillary refill <2 sec, pulse deficit (DP 2+ bilaterally), No murmur, No edema Pelvic Exam: not done Rectal Exam: deferred Extremity Exam: other, No calf tenderness, No deformities (No significant tenderness to either knee but with pain with active and passive flexion, no increased warmth, erthema, fluctuance, or induration noted to either knee joint. Motor function intact in both feet. Pain with axial loading of the R knee), No pedal edema, No tenderness Neurologic Exam: alert, oriented x 3, cooperative, other (Sensation to gross touch intact in the L4, L5, and S1 nerve distribution) - Radiology Exams Knee X-ray Interpretation: Interpreted by me, Reviewed by me (Degenerative changes noted to both knees R>L with joint space narrowing ) Ordered Tests: Active Orders 24 hr Category Date Time Status KNEE (1 OR 2 VIEW) Stat Exams 07/21/19 15:55 Completed KNEE (1 OR 2 VIEW) Stat Exams 07/21/19 16:16 Completed Medication Summary Discontinued Medications Generic Name Dose Route Start Last Admin Trade Name Veto PRN Reason Stop Dose Admin Hydromorphone HCl 1 mg 07/21/19 16:01 07/21/19 16:30 Hydromorphone 1 Mg/Ml Ampule SQ 07/21/19 16:02 1 mg STAT ONE Administration Hydromorphone HCl Confirm 07/21/19 16:28 Hydromorphone 1 Mg/Ml Ampule Administered 07/21/19 16:29 Dose 1 mg .ROUTE .STK-MED ONE Ketorolac Tromethamine 30 mg 07/21/19 16:01 07/21/19 16:29 Toradol 30 Mg Injection IM 07/21/19 16:02 30 mg STAT ONE Administration Ketorolac Tromethamine Confirm 07/21/19 16:28 Toradol 30 Mg Injection Administered 07/21/19 16:29 Dose 30 mg .ROUTE .STK-MED ONE - Progress Progress: improved Progress Note: 07/22/19 16:18 Nontoxic in appearance. Symptoms, exam, and XR findings suggest likely cause of her pain due to osteoarthritis with her pain and symptoms being worse in the right knee compared to the left. Her pain was treated with SQ Dilaudid and IM Toradol and once the patient was comfortable, she was discharge home. She was given an Ortho Clinic referral. She reportedly has PO Dilaudid to take at home for pain and she was instructed to continue this medication. The patient agreed with and verbally understood the discharge plan. Counseled pt/family regarding: diagnosis, need for follow-up, rad results - Departure Departure Disposition: Home Clinical Impression: Osteoarthritis of both knees, Knee pain, right Condition: Stable Critical Care Time: No Referrals: YOKO SANCHEZ [Primary Care Provider] - Instructions: Osteoarthritis, Knee Pain (DC) Forms: Ortho Referral Prescriptions: Nystatin Cream 30 gm [Nystop 30 gm Cream] 30 gm TP BID #30 gm
[2019-07-21] MEDS ORDERED: TORAdol 30 mg Injection IM ONE (16:01)
[2019-07-21] MEDS ORDERED: Hydromorphone 1 mg/ml Ampule SQ ONE (16:01)
[2019-07-21 16:19] VITALS: O2SAT 98
[2019-07-21] MEDS ORDERED: Hydromorphone 1 mg/ml Ampule ONE (16:28)
[2019-07-21] MEDS ORDERED: TORAdol 30 mg Injection ONE (16:28)
--- NOTE | 2019-07-21 17:10 | XRAY ---
Indication: Pain. No known injury. Comparison: July 05, 2016. AP/lateral standing left knee again demonstrates mild/moderate tricompartmental degenerative changes again greatest medial compartment. No new/acute bony, articular, or soft tissue abnormalities.
[2019-07-21 17:12] VITALS: BP 131/70; PULSE 87
--- NOTE | 2019-07-21 17:12 | XRAY ---
Indication: Pain. No known injury. Comparison: July 05, 2016. AP/lateral standing right knee again demonstrates moderate/advanced tricompartmental degenerative changes again greatest medial compartment. No new/acute bony, articular, or soft tissue abnormalities.
== END 2019-07-21 17:50 | disposition home or self-care (01) ==
LOC: ED 15:01
DX: M17.0 Bilateral primary osteoarthritis of knee (principal); M25.561 Pain in right knee; Z79.899 Other long term (current) drug therapy
CPT/HCPCS: 73560; 96372; 99284; J1170; J1885

== ENCOUNTER 2022-01-26 21:22 | Inpatient (IN) | payer MEDICARE, OTHER ==
[2022-01-26 22:06] LABS: Absolute Neutrophil Ct (ANC) 8.36 x10^3/uL (1.4-6.9); Basophil (Absolute #) 0.03 x10^3/uL (0-0.4); Eosinophil % 0.5 % (0.00-5.0); Eosinophil (Absolute #) 0.05 x10^3/uL (0-0.5); Hematocrit 36.9 % (35-47); Hemoglobin 11.4 g/dL (12.0-16.0); Lymphocyte (Absolute #) 1.75 x10^3/uL (1.0-4.6); Mean Cell Volume 83.5 fL (78-100); Mean Corpuscular Hemoglobin 25.8 pg (26-32); Mean Corpuscular Hgb Concent. 30.9 g/dL (32-36); Mean Platelet Volume 10.4 fL (7.5-11.0); Monocyte (Absolute #) 0.61 x10^3/uL (0.0-1.3); Monocytes % 5.6 % (0.0-12.0); Neutrophil % 76.5 % (36.0-66.0); Platelet Count 181 x10^3/uL (150-450); Red Blood Count 4.42 x10^6/uL (4.1-5.4); Red Cell Distribution Width 12.8 % (11.5-14.0); White Blood Count 10.9 x10^3/uL (4.0-10.5)
--- NOTE | 2022-01-26 22:17 | ERPHSYRPT ---
- History of Present Illness Historian: patient, other (Daughter) Exam Limitations: other (Poor historian) Patient Subjective Stated Complaint: pain where my hernia is, vomiting Triage Nursing Assessment: pt arrived via ambulance. pt c/o abd pain where the hernia is x3 days, vomiting when trying to eat or drink. Abd obese with active bs x4 quad, nontender. Pt has large umbilical hernia protruding, with slight amt of bloody drainage around umbilicus area. Pt's LBM was 3 days ago. Pt unable to keep food or drink down. Physician History: 71 yo wf w N/V x 3 days. pt has generalized abdominal pain which seems to be centered around a large umbilical hernia. Pain is 6/10 and described as an ache/burning. She denies diarrhea/melena/hematochezia/dysuria/hematuria/fever. She does have mild coryza wo cough. Pt is on narcotics for chronic pain and is worried about withdrawal. Timing/Duration: day(s) (3 days) Activities at Onset: rest Quality: aching, burning Abdominal Pain Onset Location: generalized abdomen Pain Radiation: no radiation Associated Symptoms: loss of appetite, nausea, vomiting, weakness, No back, No chest pain, No diaphoresis, No diarrhea, No fever/chills, No fatigue, No headache, No heartburn, No neck pain, No rash, No shortness of breath, No syncope Previous symptoms: same symptoms as today Allergies/Adverse Reactions: latex Allergy (Intermediate, Verified 01/26/22 21:41) Blisters erythromycin base Adverse Reaction (Severe, Verified 01/26/22 21:41) Nausea Sulfa (Sulfonamide Antibiotics) Adverse Reaction (Severe, Verified 01/26/22 21:41) Nausea Home Medications: Duloxetine HCl 30 mg [Cymbalta 30 MG Capsule] 60 mg PO DAILY 06/22/15 [History] Lisinopril 20 mg [Zestril 20 MG] 20 mg PO DAILY 06/22/15 [History] Magnesium Oxide 400 mg [Mag-Ox 400] 400 mg PO DAILY 06/22/15 [History] Potassium Chloride Tab* [Klor Con] 10 meq PO DAILY 07/17/16 [History] Ergocalciferol (Vitamin D2) [Vitamin D2] 50,000 unit PO Q7D 01/26/22 [History] Furosemide 40 mg PO DAILY 01/26/22 [History] Hx Tetanus, Diphtheria Vaccination/Date Given: Yes Hx Influenza Vaccination/Date Given: Yes Hx Pneumococcal Vaccination/Date Given: Yes Immunizations Up to Date: Yes Travel Risk - International Travel Have you traveled outside of the country in past 3 weeks: No - Coronavirus Screening Are you exhibiting any of the following symptoms?: Yes Symptoms: Fever, Vomiting/Diarrhea Close contact with a COVID-19 positive Pt in past 14-21 Days: No - Vaccine Status Have you recieved a Covid-19 vaccination: No - Review of Systems Constitutional: No Symptoms, Malaise, Weakness Eyes: No Symptoms Ears, Nose, & Throat: No Symptoms Respiratory: No Symptoms Cardiac: No Symptoms, Other Abdominal/Gastrointestinal: No Symptoms, Nausea, Vomiting Genitourinary Symptoms: No Symptoms Musculoskeletal: No Symptoms, Arthralgias Skin: No Symptoms Neurological: No Symptoms Psychological: No Symptoms Endocrine: No Symptoms Hematologic/Lymphatic: No Symptoms Immunological/Allergic: No Symptoms - Past Medical History Pertinent Past Medical History: Yes Neurological History: No Pertinent History, Other ENT History: No Pertinent History Cardiac History: Congestive Heart Failure, Hypertension Respiratory History: COPD Endocrine Medical History: No Pertinent History Musculoskeletal History: Osteoarthritis GI Medical History: GERD, Hernia History: No Pertinent History Psycho-Social History: Anxiety, Depression Female Reproductive Disorders: Fibroids, Other Other Medical History: depression. - Past Surgical History Past Surgical History: Yes Neuro Surgical History: No Pertinent History Cardiac: No Pertinent History Respiratory: No Pertinent History Gastrointestinal: No Pertinent History Genitourinary: No Pertinent History Musculoskeletal: No Pertinent History Female Surgical History: Other Other Surgical History: D&C, dental extractions, EGD - Social History Smoking Status: Former smoker Exposure to second hand smoke: No Drug Use: none Patient Lives Alone: No - Nursing Vital Signs Nursing Vital Signs: Initial Vital Signs Temperature 99.7 F 01/26/22 21:30 Pulse Rate 98 H 01/26/22 21:30 Respiratory Rate 20 01/26/22 21:30 Blood Pressure 142/76 01/26/22 21:30 O2 Sat by Pulse Oximetry 96 01/26/22 21:30 Pain Scale Pain Intensity 3 - Physical Exam General Appearance: no apparent distress Eye Exam: PERRL/EOMI, eyes nml inspection Ears, Nose, Throat Exam: normal ENT inspection, TMs normal, pharynx normal, moist mucous membranes Neck Exam: normal inspection, non-tender, supple, full range of motion, No menin gismus, No mass, No Brudzinski, No Kernig's Respiratory Exam: normal breath sounds, lungs clear, airway intact, No respiratory distress Cardiovascular Exam: regular rate/rhythm, normal heart sounds, capillary refill <2 sec, No murmur Gastrointestinal/Abdomen Exam: tenderness (Morbidly obese/Large ventral hernia/Diffuse TTP/no guarding or rebound) Back Exam: normal inspection, normal range of motion Extremity Exam: other (Chronic 3+ B LE edema w chronic venous stasis changes) Neurologic Exam: alert, oriented x 3, cooperative, 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, normal mood/affect, nml cerebellar function, nml station & gait, sensation nml, No motor deficits, No sensory deficit Skin Exam: normal color, warm, dry Lymphatic Exam: No adenopathy SpO2 Interpretation: normal SpO2: 96 O2 Delivery: Room Air - Course Nursing assessment & vital signs reviewed: Yes - CT Exams Abdomen/Pelvis CT Interpretation: Tele-radiologist Report (Ventral hernia/4.4 cm R ovarian mass/) Ordered Tests: Active Orders 24 hr Category Date Time Status ABDOMEN AND PELVIS W/0 CONTRAS [CT] Stat Exams 01/26/22 22:49 Taken AMYLASE Stat Lab 01/26/22 22:03 Completed CBC W DIFF Stat Lab 01/26/22 22:03 Completed CMP Stat Lab 01/26/22 22:03 Completed CULTURE,URINE Stat Lab 01/27/22 00:21 Received LIPASE Stat Lab 01/26/22 22:03 Completed TROPONIN Q4H Lab 01/26/22 22:03 Completed TROPONIN Q4H Lab 01/27/22 01:45 Ordered TROPONIN Q4H Lab 01/27/22 05:45 Ordered UA W/RFX CULTURE Stat Lab 01/27/22 00:21 Completed Medication Summary Generic Name Dose Route Start Last Admin Trade Name Freq PRN Reason Stop Dose Admin Ceftriaxone Sodium/Dextrose 1 g in 50 mls @ 100 mls/hr 01/27/22 00:48 01/27/22 00:57 Rocephin 1 Gm-D5w 50 Ml Bag IV 01/27/22 01:17 100 mls/hr STAT STA 100 mls/hr Administration Sodium Chloride 500 mls @ 500 mls/hr 01/27/22 00:49 01/27/22 00:58 Sodium Chloride 0.9% 500 Ml IV 01/27/22 01:48 500 mls/hr .Q1H ONE Administration Discontinued Medications Generic Name Dose Route Start Last Admin Trade Name Veto PRN Reason Stop Dose Admin Fentanyl Citrate 50 mcg 01/26/22 22:19 01/26/22 23:01 Fentanyl Citrate 100 Mcg/2 Ml* Vial IV 01/26/22 22:20 50 mcg STAT ONE Administration Fentanyl Citrate Confirm 01/26/22 23:00 Fentanyl Citrate 100 Mcg/2 Ml* Vial Administered 01/26/22 23:01 Dose 100 mcg .ROUTE .STK-MED ONE Fentanyl Citrate 50 mcg 01/27/22 00:49 01/27/22 00:57 Fentanyl Citrate 100 Mcg/2 Ml* Vial IV 01/27/22 00:50 50 mcg STAT ONE Administration Fentanyl Citrate Confirm 01/27/22 00:52 Fentanyl Citrate 100 Mcg/2 Ml* Vial Administered 01/27/22 00:53 Dose 100 mcg .ROUTE .STK-MED ONE Sodium Chloride 1,000 mls @ 999 mls/hr 01/26/22 22:18 01/26/22 23:22 Sodium Chloride 0.9% 1000 Ml IV 01/26/22 23:18 Not Given .Q1H1M STA Sodium Chloride Confirm 01/26/22 23:00 Sodium Chloride 0.9% 1000 Ml Administered 01/26/22 23:01 Dose 1,000 mls @ ud .ROUTE .STK-MED ONE Sodium Chloride 500 mls @ 500 mls/hr 01/26/22 23:10 01/26/22 23:15 Sodium Chloride 0.9% 500 Ml IV 01/27/22 00:09 500 mls/hr .Q1H ONE Administration Sodium Chloride Confirm 01/26/22 23:15 Sodium Chloride 0.9% 500 Ml Administered 01/26/22 23:16 Dose 500 mls @ ud IV .STK-MED ONE Ceftriaxone Sodium/Dextrose Confirm 01/27/22 00:52 Rocephin 1 Gm-D5w 50 Ml Bag Administered 01/27/22 00:53 Dose 1 g in 50 mls @ ud IV .STK-MED ONE Sodium Chloride Confirm 01/27/22 00:53 Sodium Chloride 0.9% 500 Ml Administered 01/27/22 00:54 Dose 500 mls @ ud IV .STK-MED ONE Ondansetron HCl 4 mg 01/26/22 22:19 01/26/22 23:02 Ondansetron Hcl 4 Mg/2 Ml Vial IV 01/26/22 22:20 4 mg STAT ONE Administration Ondansetron HCl Confirm 01/26/22 23:00 Ondansetron Hcl 4 Mg/2 Ml Vial Administered 01/26/22 23:01 Dose 4 mg .ROUTE .STK-MED ONE Lab/Rad Data: Laboratory Result Diagrams 01/26/22 22:03 01/26/22 22:03 Laboratory Results 01/27/22 01/26/22 01/26/22 Range/Units 00:21 22:03 22:03 WBC (4.0-10.5) x10^3/uL RBC (4.1-5.4) x10^6/uL Hgb (12.0-16.0) g/dL Hct (35-47) % MCV (78-100) fL MCH (26-32) pg MCHC (32-36) g/dL RDW (11.5-14.0) % Plt Count (150-450) x10^3/uL MPV (7.5-11.0) fL Gran % (36.0-66.0) % Immature Gran % (Auto) (0.00-0.4) % Nucleat RBC Rel Count (0.00-0.1) % Eos # (Auto) (0-0.5) x10^3/uL Immature Gran # (Auto) (0.00-0.03) x10^3u/L Absolute Lymphs (auto) (1.0-4.6) x10^3/uL Absolute Monos (auto) (0.0-1.3) x10^3/uL Absolute Nucleated RBC (0.00-0.01) x10^3u/L Lymphocytes % (24.0-44.0) % Monocytes % (0.0-12.0) % Eosinophils % (0.00-5.0) % Basophils % (0.0-0.4) % Absolute Granulocytes (1.4-6.9) x10^3/uL Basophils # (0-0.4) x10^3/uL Sodium (137-145) mmol/L Potassium (3.5-5.1) mmol/L Chloride (98-107) mmol/L Carbon Dioxide (22-30) mmol/L Anion Gap (5-15) MEQ/L BUN (7-17) mg/dL Creatinine (0.52-1.04) mg/dL Estimated GFR ML/MIN Glucose (74-106) mg/dL Calcium (8.4-10.2) mg/dL Total Bilirubin (0.2-1.3) mg/dL AST (14-36) U/L ALT (0-35) U/L Alkaline Phosphatase (38-126) U/L Troponin I < 0.012 (0.000-0.034) ng/mL Serum Total Protein (6.3-8.2) g/dL Albumin (3.5-5.0) g/dL Amylase (30-110) U/L Lipase (23-300) U/L Urinalys Dipstick Clnc MAIN LAB Urine Color YELLOW (YELLOW) Urine Appearance SLIGHTLY CLOUDY (CLEAR) Urine pH 7.0 (5-6) Ur Specific [place] 1.010 (1.005-1.025) POC Urine Protein Conf NEGATIVE (Negative) Urine Ketones NEGATIVE (NEGATIVE) Urine Nitrite NEGATIVE (NEGATIVE) Urine Bilirubin NEGATIVE (NEGATIVE) Urine Urobilinogen 1 (0-1) mg/dL Urine Leukocytes LARGE (NEGATIVE) Urine WBC (Auto) 51-100 (0-5) /HPF Urine RBC (Auto) 0-2 (0-2) /HPF U Epithel Cells (Auto) RARE (FEW) /HPF Urine Bacteria (Auto) RARE (NEGATIVE) /HPF Urine RBC TRACE-INTACT (0-5) Seth/ul Other Casts (Auto) NEGATIVE (NEGATIVE) /LPF Urine Mucus (Auto) SLIGHT (NEGATIVE) /HPF Ur Culture Indicated? YES Urine Glucose NEGATIVE (NEGATIVE) mg/dL Influenza Type A Ag NEGATIVE (NEGATIVE) Influenza Type B Ag NEGATIVE (NEGATIVE) RSV (PCR) NEGATIVE (Negative) SARS-CoV-2 (PCR) NEGATIVE (NEGATIVE) 01/26/22 01/26/22 Range/Units 22:03 22:03 WBC 10.9 H (4.0-10.5) x10^3/uL RBC 4.42 (4.1-5.4) x10^6/uL Hgb 11.4 L (12.0-16.0) g/dL Hct 36.9 (35-47) % MCV 83.5 (78-100) fL MCH 25.8 L (26-32) pg MCHC 30.9 L (32-36) g/dL RDW 12.8 (11.5-14.0) % Plt Count 181 (150-450) x10^3/uL MPV 10.4 (7.5-11.0) fL Gran % 76.5 H (36.0-66.0) % Immature Gran % (Auto) 1.1 H (0.00-0.4) % Nucleat RBC Rel Count 0.0 (0.00-0.1) % Eos # (Auto) 0.05 (0-0.5) x10^3/uL Immature Gran # (Auto) 0.12 H (0.00-0.03) x10^3u/L Absolute Lymphs (auto) 1.75 (1.0-4.6) x10^3/uL Absolute Monos (auto) 0.61 (0.0-1.3) x10^3/uL Absolute Nucleated RBC 0.00 (0.00-0.01) x10^3u/L Lymphocytes % 16.0 L (24.0-44.0) % Monocytes % 5.6 (0.0-12.0) % Eosinophils % 0.5 (0.00-5.0) % Basophils % 0.3 (0.0-0.4) % Absolute Granulocytes 8.36 H (1.4-6.9) x10^3/uL Basophils # 0.03 (0-0.4) x10^3/uL Sodium 136 L (137-145) mmol/L Potassium 4.8 (3.5-5.1) mmol/L Chloride 101 (98-107) mmol/L Carbon Dioxide 27 (22-30) mmol/L Anion Gap 13.6 (5-15) MEQ/L BUN 26 H (7-17) mg/dL Creatinine 1.36 H (0.52-1.04) mg/dL Estimated GFR 40.9 ML/MIN Glucose 161 H (74-106) mg/dL Calcium 9.5 (8.4-10.2) mg/dL Total Bilirubin 0.50 (0.2-1.3) mg/dL AST 19 (14-36) U/L ALT 13 (0-35) U/L Alkaline Phosphatase 108 (38-126) U/L Troponin I (0.000-0.034) ng/mL Serum Total Protein 7.1 (6.3-8.2) g/dL Albumin 4.1 (3.5-5.0) g/dL Amylase 38 (30-110) U/L Lipase 37 (23-300) U/L Urinalys Dipstick Clnc Urine Color (YELLOW) Urine Appearance (CLEAR) Urine pH (5-6) Ur Specific [place] (1.005-1.025) POC Urine Protein Conf (Negative) Urine Ketones (NEGATIVE) Urine Nitrite (NEGATIVE) Urine Bilirubin (NEGATIVE) Urine Urobilinogen (0-1) mg/dL Urine Leukocytes (NEGATIVE) Urine WBC (Auto) (0-5) /HPF Urine RBC (Auto) (0-2) /HPF U Epithel Cells (Auto) (FEW) /HPF Urine Bacteria (Auto) (NEGATIVE) /HPF Urine RBC (0-5) Seth/ul Other Casts (Auto) (NEGATIVE) /LPF Urine Mucus (Auto) (NEGATIVE) /HPF Ur Culture Indicated? Urine Glucose (NEGATIVE) mg/dL Influenza Type A Ag (NEGATIVE) Influenza Type B Ag (NEGATIVE) RSV (PCR) (Negative) SARS-CoV-2 (PCR) (NEGATIVE) - Progress Progress: improved Progress Note: 01/27/22 01:10 50mcg IV Fentanyl/4mg IV Zofran 500ml NS bolus x2 1gm IV rocephin 01/27/22 01:[address] Silverio Discussed with : Dario Counseled pt/family regarding: lab results, diagnosis, rad results - Departure Departure Disposition: Observation Clinical Impression: Abdominal pain, Umbilical hernia, Nausea & vomiting, UTI (urinary tract infection) Condition: Stable Critical Care Time: No Referrals: YOKO SANCHEZ [Primary Care Provider] - Follow up/PCP as directed Instructions: Severe Abdominal Pain, Adult (DC)
[2022-01-26] MEDS ORDERED: Zofran 4 MG/2 ML VIAL IV ONE (22:19)
[2022-01-26] MEDS ORDERED: SUBLIMAZE 100 MCG/2 ML IV ONE (22:19)
[2022-01-26 22:21] LABS: ALBUMIN 4.1 g/dL (3.5-5.0); ANION GAP 13.6 MEQ/L (5-15); BILIRUBIN,TOTAL 0.5 mg/dL (0.2-1.3); Calcium 9.5 mg/dL (8.4-10.2); Creatinine 1 1.36 mg/dL (0.52-1.04); EST GLOMERULAR FILTRATION RATE 40.9 ML/MIN; Potassium 4.8 mmol/L (3.5-5.1); Total Protein 7.1 g/dL (6.3-8.2)
[2022-01-26 22:46] LABS: INFLUENZA A NEGATIVE (NEGATIVE); INFLUENZA B NEGATIVE (NEGATIVE); RESPIRATORY SYNCTIAL VIRUS NEGATIVE (Negative); SARS-CoV-2 Xpert Express NEGATIVE (NEGATIVE)
[2022-01-26] MEDS ORDERED: Zofran 4 MG/2 ML VIAL ONE (23:00)
[2022-01-26] MEDS ORDERED: SUBLIMAZE 100 MCG/2 ML ONE (23:00)
[2022-01-26] MEDS ORDERED: Sodium Chloride 0.9% 1000 ML 1,000 ML ONE (23:00)
[2022-01-26] MEDS: Sodium Chloride 0.9% 1000 ML 1,000 ML IV STA ×2 (23:03→23:22)
[2022-01-26] MEDS ORDERED: Sodium Chloride 0.9% 500 ML 500 ML IV ONE ×2 (23:10→23:15)
[2022-01-27 00:35] LABS: Appearance SLIGHTLY CLOUDY (CLEAR); Bilirubin NEGATIVE (NEGATIVE); Dipstick done @ ? MAIN LAB; Glucose NEGATIVE (NEGATIVE); Ketones NEGATIVE (NEGATIVE); Nitrite NEGATIVE (NEGATIVE); Protein,Urine Dip NEGATIVE (Negative); RBC TRACE-INTACT Ery/ul (0-5); Urobilinogen 1 mg/dL (0-1)
[2022-01-27 00:40] LABS: Bacteria RARE /HPF (NEGATIVE); Epithelial Cells RARE /HPF (FEW); Mucus SLIGHT /HPF (NEGATIVE); RBC 0-2 /HPF (0-2); Urine Cultured Indicated? YES; WBC 51-100 /HPF (0-5)
[2022-01-27] MEDS ORDERED: ROCEPHIN 1 Gm-D5w 50 ml Bag** 1 G/50 ML IVPB IV STA (00:48)
[2022-01-27] MEDS ORDERED: SUBLIMAZE 100 MCG/2 ML IV ONE (00:49)
[2022-01-27] MEDS ORDERED: Sodium Chloride 0.9% 500 ML 500 ML IV ONE ×2 (00:49→00:53)
[2022-01-27] MEDS ORDERED: ROCEPHIN 1 Gm-D5w 50 ml Bag** 1 G/50 ML IVPB IV ONE (00:52)
[2022-01-27] MEDS ORDERED: SUBLIMAZE 100 MCG/2 ML ONE (00:52)
[2022-01-27] MEDS ORDERED: HUMALOG SQ PRN (01:21)
[2022-01-27] MEDS: Sodium Chloride 0.9% 1000 ML 1,000 ML IV SCH ×3 (02:19→22:52)
[2022-01-27 03:08] LABS: Absolute Neutrophil Ct (ANC) 9.54 x10^3/uL (1.4-6.9); Basophil (Absolute #) 0.02 x10^3/uL (0-0.4); Eosinophil % 0.2 % (0.00-5.0); Eosinophil (Absolute #) 0.03 x10^3/uL (0-0.5); Hematocrit 35.8 % (35-47); Hemoglobin 10.9 g/dL (12.0-16.0); Lymphocyte (Absolute #) 2.07 x10^3/uL (1.0-4.6); Lymphocytes % 16.5 % (24.0-44.0); Mean Corpuscular Hemoglobin 25.6 pg (26-32); Mean Corpuscular Hgb Concent. 30.4 g/dL (32-36); Mean Platelet Volume 10.6 fL (7.5-11.0); Monocyte (Absolute #) 0.79 x10^3/uL (0.0-1.3); Monocytes % 6.3 % (0.0-12.0); Platelet Count 180 x10^3/uL (150-450); Red Blood Count 4.26 x10^6/uL (4.1-5.4); Red Cell Distribution Width 12.9 % (11.5-14.0); White Blood Count 12.6 x10^3/uL (4.0-10.5)
[2022-01-27 03:25] LABS: ALBUMIN 3.9 g/dL (3.5-5.0); ANION GAP 12.3 MEQ/L (5-15); BILIRUBIN,TOTAL 0.4 mg/dL (0.2-1.3); Creatinine 1 1.34 mg/dL (0.52-1.04); EST GLOMERULAR FILTRATION RATE 41.6 ML/MIN; Potassium 4.5 mmol/L (3.5-5.1); Total Protein 6.7 g/dL (6.3-8.2)
[2022-01-27] MEDS: SUBLIMAZE 100 MCG/2 ML IV PRN ×5 (03:58→21:39)
[2022-01-27] MEDS: Zofran 4 MG/2 ML VIAL IV PRN ×5 (03:59→21:39)
--- NOTE | 2022-01-27 07:07 | XRAY ---
Indication: Abdomen pain, nausea, and vomiting. Multiple contiguous axial images obtained through the abdomen and pelvis without contrast. Comparison: October 27, 2017 Several images are slightly degraded by respiration artifact. Visualized lung bases are clear. Heart not enlarged. Noncontrasted stomach and bowel loops appear nonobstructed with normal appendix. Again mild scattered descending and sigmoid diverticulosis without diverticulitis. Grossly stable moderate sized periumbilical ventral hernia with herniated omental fat and small bowel loops without complications. Again 21 cm fatty of hepatomegaly. Gallbladder is mildly distended without gallstones. New 4.4 cm right ovary cyst. No free fluid/air. Remaining liver, gallbladder, pancreas, spleen, adrenal glands, kidneys, ureters, bladder, and uterus are unremarkable for noncontrast exam. There remains mild scattered aortoiliac calcifications without AAA. Osseous structures intact again with degenerative changes throughout the spine with mild levoscoliosis. Stable degenerative changes both SI joints and both hips. Impression: 1. Respiration artifact. 2. New 4.4 cm right ovary cyst. 3. Grossly stable periumbilical ventral hernia with herniated omental fat and bowel loops without complications. 4. Chronic findings including colonic diverticulosis, fatty liver, arteriosclerotic disease, and old granulomatous disease. Comment: Preliminary interpretation made by [facility]. No critical discrepancy.
[2022-01-27] MEDS: PROTONIX 40 MG IV IV SCH (09:23)
[2022-01-27] MEDS: ENOXAPARIN SODIUM SQ SCH (09:24)
[2022-01-27] MEDS ORDERED: ENOXAPARIN SODIUM SQ SCH (10:00)
[2022-01-27 12:48] LABS: Bacteria RARE /HPF (NEGATIVE); Mucus SLIGHT /HPF (NEGATIVE); RBC 51-100 /HPF (0-2)
[2022-01-27 12:49] LABS: Appearance CLEAR (CLEAR); Bilirubin NEGATIVE (NEGATIVE); Dipstick done @ ? MAIN LAB; Glucose NEGATIVE (NEGATIVE); Ketones NEGATIVE (NEGATIVE); Nitrite NEGATIVE (NEGATIVE); Ph 5.5 (5-6); Protein,Urine Dip NEGATIVE (Negative); RBC MODERATE Ery/ul (0-5); Urine Cultured Indicated? YES; Urobilinogen 1 mg/dL (0-1)
[2022-01-27] MEDS: Klor Con PO SCH (13:28)
[2022-01-27] MEDS: Lasix 40 MG PO SCH (13:28)
[2022-01-27] MEDS: Cymbalta 30 MG Capsule PO SCH (13:28)
[2022-01-27] MEDS: MAG-OX 400 PO SCH (13:29)
[2022-01-27] MEDS: Zestril 20 MG PO SCH (13:29)
--- NOTE | 2022-01-27 13:52 | PCM.HP ---
History of Present Illness - Chief Complaint Chief Complaint: Abdominal pain UTI, Nausea and vomiting History of Present Illness: is a 71 year old morbidly obese female patient of Dr Irizarry's who presented to ER with 3 days of N/V and mid abdominal pain at umbilical hernia. States she has not been able to eat other than "nibbling for 3 days. Last BM was 3 days ago. States there has been yellow drainage from the top of her umblical hernia for a week. Patient states Dr Charanjit Hernandez has treated her in the past. PMHx includes HTN,CHF,COPD,hyperglycemia,OA,GERD,umbilical hernia. Medications & Allergies Home Medications: Home Medication List Duloxetine HCl 30 mg [Cymbalta 30 MG Capsule] 60 mg PO DAILY 06/22/15 [History Confirmed 01/26/22] Lisinopril 20 mg [Zestril 20 MG] 20 mg PO DAILY 06/22/15 [History Confirmed 01/26/22] Magnesium Oxide 400 mg [Mag-Ox 400] 400 mg PO DAILY 06/22/15 [History Confirmed 01/26/22] Potassium Chloride Tab* [Klor Con] 10 meq PO DAILY 07/17/16 [History Confirmed 01/26/22] Ergocalciferol (Vitamin D2) [Vitamin D2] 50,000 unit PO Q7D 01/26/22 [History Confirmed 01/26/22] Furosemide 40 mg PO DAILY 01/26/22 [History Confirmed 01/26/22] Oxycodone / APAP 10/325 mg [Oxycodone-Acetaminophen 10-325] 1 tab QID 01/27/22 [History Confirmed 01/27/22] Cefuroxime Axetil 500 mg [Ceftin 500 mg] 500 mg PO BID #14 tablet 01/31/22 [Rx] Hyoscyamine Sulfate 0.125 mg [Anaspaz 0.125 mg] 0.125 mg PO BID PRN #30 tablet 01/31/22 [Rx] Allergies/Adverse Reactions: Allergies Allergy/AdvReac Type Severity Reaction Status Date / Time latex Allergy Intermediate Blisters Verified 01/26/22 21:41 erythromycin base AdvReac Severe Nausea Verified 01/26/22 21:41 Sulfa (Sulfonamide AdvReac Severe Nausea Verified 01/26/22 21:41 Antibiotics) - Past Medical History Past Medical History: Yes Neurological History: No Pertinent History, Other ENT History: No Pertinent History Cardiac History: Congestive Heart Failure, Hypertension Respiratory History: COPD Endocrine Medical History: No Pertinent History Musculoskelatal History: Osteoarthritis GI Medical History: GERD, Hernia History: No Pertinent History Pyscho-Social History: Anxiety, Depression Reproductive Disorders: Fibroids, Other Comment: depression. - Past Surgical History Past Surgical History: Yes Neuro Surgical History: No Pertinent History Cardiac History: No Pertinent History Respiratory Surgery: No Pertinent History GI Surgical History: No Pertinent History Genitourinary Surgical Hx: No Pertinent History Musculskeletal Surgical Hx: No Pertinent History Female Surgical History: Other Other Surgical History: D&C, dental extractions, EGD - Social History Smoking Status: Former smoker Exposure to second hand smoke: No Alcohol: None Drug Use: none - Physical Exam Vital Signs: Vital Signs - 24 hr Temp Pulse Resp BP Pulse Ox 01/27/22 11:35 98.6 F 96 H 16 125/60 93 L 01/27/22 07:05 97.7 F 104 H 16 140/63 95 01/27/22 03:56 98.2 F 96 H 16 137/61 96 01/27/22 02:29 98.2 F 96 H 16 137/61 96 01/27/22 01:27 96 01/27/22 00:59 93 H 18 156/66 98 01/26/22 23:29 98 H 18 98 01/26/22 21:30 99.7 F 98 H 20 142/76 96 General Appearance: mild distress (just given pain med ,is uncomfortable periumbilical and RUQ discomfort.Nauseated but relief from vomiting), lethargy Neurologic Exam: alert, oriented x 3 Eye Exam: eyes nml inspection Ears, Nose, Throat Exam: normal ENT inspection Neck Exam: normal inspection, meningismus Respiratory Exam: normal breath sounds Cardiovascular Exam: tachycardia (rate 90 regular) Gastrointestinal/Abdomen Exam: guarding, other (umbilical hernia is soft but unable to reduce due to the pain,protruding sofball size ventral/umbilical hernia,red and tender proximally with purulent discharge from skin fold.) Pelvic Exam: not done Rectal Exam: not done Back Exam: normal inspection Extremity Exam: tenderness (BLE thighs down to feet swollen/red like sunburn and tender), other Wound Assessment: Skin/Wound Assessment Wound/Incision Assessment Start: 01/27/22 02:59 Text: Status: Active Freq: Q6H Protocol: Document 01/27/22 08:00 FOSTER (Rec: 01/27/22 10:11 FOSTER [id number]) Wound/Incision Assessment Lower Anterior/Posterior Calf Wound Assessment Shift Assessment Comment cellulitis bilat lower legs, no open areas noted, a small unopened blister to left lowe leg Results - Labs Lab/Micro Results: Lab Results-Last 24 Hours 01/26/22 01/26/22 01/26/22 Range/Units 22:03 22:03 22:03 WBC 10.9 H (4.0-10.5) x10^3/uL RBC 4.42 (4.1-5.4) x10^6/uL Hgb 11.4 L (12.0-16.0) g/dL Hct 36.9 (35-47) % MCV 83.5 (78-100) fL MCH 25.8 L (26-32) pg MCHC 30.9 L (32-36) g/dL RDW 12.8 (11.5-14.0) % Plt Count 181 (150-450) x10^3/uL MPV 10.4 (7.5-11.0) fL Gran % 76.5 H (36.0-66.0) % Immature Gran % (Auto) 1.1 H (0.00-0.4) % Nucleat RBC Rel Count 0.0 (0.00-0.1) % Eos # (Auto) 0.05 (0-0.5) x10^3/uL Immature Gran # (Auto) 0.12 H (0.00-0.03) x10^3u/L Absolute Lymphs (auto) 1.75 (1.0-4.6) x10^3/uL Absolute Monos (auto) 0.61 (0.0-1.3) x10^3/uL Absolute Nucleated RBC 0.00 (0.00-0.01) x10^3u/L Lymphocytes % 16.0 L (24.0-44.0) % Monocytes % 5.6 (0.0-12.0) % Eosinophils % 0.5 (0.00-5.0) % Basophils % 0.3 (0.0-0.4) % Absolute Granulocytes 8.36 H (1.4-6.9) x10^3/uL Basophils # 0.03 (0-0.4) x10^3/uL Sodium 136 L (137-145) mmol/L Potassium 4.8 (3.5-5.1) mmol/L Chloride 101 (98-107) mmol/L Carbon Dioxide 27 (22-30) mmol/L Anion Gap 13.6 (5-15) MEQ/L BUN 26 H (7-17) mg/dL Creatinine 1.36 H (0.52-1.04) mg/dL Estimated GFR 40.9 ML/MIN Glucose 161 H (74-106) mg/dL POC Glucometer (74 to 106) mg/dL Hemoglobin A1c (4.5-6.0) % Calcium 9.5 (8.4-10.2) mg/dL Total Bilirubin 0.50 (0.2-1.3) mg/dL AST 19 (14-36) U/L ALT 13 (0-35) U/L Alkaline Phosphatase 108 (38-126) U/L Troponin I < 0.012 (0.000-0.034) ng/mL Serum Total Protein 7.1 (6.3-8.2) g/dL Albumin 4.1 (3.5-5.0) g/dL Prealbumin (17.6-36.0) mg/dL Amylase 38 (30-110) U/L Lipase 37 (23-300) U/L Urinalys Dipstick Clnc Urine Color (YELLOW) Urine Appearance (CLEAR) Urine pH (5-6) Ur Specific [place] (1.005-1.025) POC Urine Protein Conf (Negative) Urine Ketones (NEGATIVE) Urine Nitrite (NEGATIVE) Urine Bilirubin (NEGATIVE) Urine Urobilinogen (0-1) mg/dL Urine Leukocytes (NEGATIVE) Urine WBC (Auto) (0-5) /HPF Urine RBC (Auto) (0-2) /HPF U Epithel Cells (Auto) (FEW) /HPF Urine Bacteria (Auto) (NEGATIVE) /HPF Urine RBC (0-5) Seth/ul Other Casts (Auto) (NEGATIVE) /LPF Urine Mucus (Auto) (NEGATIVE) /HPF Ur Culture Indicated? Urine Glucose (NEGATIVE) mg/dL Influenza Type A Ag (NEGATIVE) Influenza Type B Ag (NEGATIVE) RSV (PCR) (Negative) SARS-CoV-2 (PCR) (NEGATIVE) 01/26/22 01/27/22 01/27/22 Range/Units 22:03 00:21 03:02 WBC (4.0-10.5) x10^3/uL RBC (4.1-5.4) x10^6/uL Hgb (12.0-16.0) g/dL Hct (35-47) % MCV (78-100) fL MCH (26-32) pg MCHC (32-36) g/dL RDW (11.5-14.0) % Plt Count (150-450) x10^3/uL MPV (7.5-11.0) fL Gran % (36.0-66.0) % Immature Gran % (Auto) (0.00-0.4) % Nucleat RBC Rel Count (0.00-0.1) % Eos # (Auto) (0-0.5) x10^3/uL Immature Gran # (Auto) (0.00-0.03) x10^3u/L Absolute Lymphs (auto) (1.0-4.6) x10^3/uL Absolute Monos (auto) (0.0-1.3) x10^3/uL Absolute Nucleated RBC (0.00-0.01) x10^3u/L Lymphocytes % (24.0-44.0) % Monocytes % (0.0-12.0) % Eosinophils % (0.00-5.0) % Basophils % (0.0-0.4) % Absolute Granulocytes (1.4-6.9) x10^3/uL Basophils # (0-0.4) x10^3/uL Sodium (137-145) mmol/L Potassium (3.5-5.1) mmol/L Chloride (98-107) mmol/L Carbon Dioxide (22-30) mmol/L Anion Gap (5-15) MEQ/L BUN (7-17) mg/dL Creatinine (0.52-1.04) mg/dL Estimated GFR ML/MIN Glucose (74-106) mg/dL POC Glucometer (74 to 106) mg/dL Hemoglobin A1c (4.5-6.0) % Calcium (8.4-10.2) mg/dL Total Bilirubin (0.2-1.3) mg/dL AST (14-36) U/L ALT (0-35) U/L Alkaline Phosphatase (38-126) U/L Troponin I < 0.012 (0.000-0.034) ng/mL Serum Total Protein (6.3-8.2) g/dL Albumin (3.5-5.0) g/dL Prealbumin (17.6-36.0) mg/dL Amylase (30-110) U/L Lipase (23-300) U/L Urinalys Dipstick Clnc MAIN LAB Urine Color YELLOW (YELLOW) Urine Appearance SLIGHTLY CLOUDY (CLEAR) Urine pH 7.0 (5-6) Ur Specific [place] 1.010 (1.005-1.025) POC Urine Protein Conf NEGATIVE (Negative) Urine Ketones NEGATIVE (NEGATIVE) Urine Nitrite NEGATIVE (NEGATIVE) Urine Bilirubin NEGATIVE (NEGATIVE) Urine Urobilinogen 1 (0-1) mg/dL Urine Leukocytes LARGE (NEGATIVE) Urine WBC (Auto) 51-100 (0-5) /HPF Urine RBC (Auto) 0-2 (0-2) /HPF U Epithel Cells (Auto) RARE (FEW) /HPF Urine Bacteria (Auto) RARE (NEGATIVE) /HPF Urine RBC TRACE-INTACT (0-5) Seth/ul Other Casts (Auto) NEGATIVE (NEGATIVE) /LPF Urine Mucus (Auto) SLIGHT (NEGATIVE) /HPF Ur Culture Indicated? YES Urine Glucose NEGATIVE (NEGATIVE) mg/dL Influenza Type A Ag NEGATIVE (NEGATIVE) Influenza Type B Ag NEGATIVE (NEGATIVE) RSV (PCR) NEGATIVE (Negative) SARS-CoV-2 (PCR) NEGATIVE (NEGATIVE) 01/27/22 01/27/22 01/27/22 Range/Units 03:02 03:02 03:15 WBC 12.6 H (4.0-10.5) x10^3/uL RBC 4.26 (4.1-5.4) x10^6/uL Hgb 10.9 L (12.0-16.0) g/dL Hct 35.8 (35-47) % MCV 84.0 (78-100) fL MCH 25.6 L (26-32) pg MCHC 30.4 L (32-36) g/dL RDW 12.9 (11.5-14.0) % Plt Count 180 (150-450) x10^3/uL MPV 10.6 (7.5-11.0) fL Gran % 76.0 H (36.0-66.0) % Immature Gran % (Auto) 0.8 H (0.00-0.4) % Nucleat RBC Rel Count 0.0 (0.00-0.1) % Eos # (Auto) 0.03 (0-0.5) x10^3/uL Immature Gran # (Auto) 0.10 H (0.00-0.03) x10^3u/L Absolute Lymphs (auto) 2.07 (1.0-4.6) x10^3/uL Absolute Monos (auto) 0.79 (0.0-1.3) x10^3/uL Absolute Nucleated RBC 0.00 (0.00-0.01) x10^3u/L Lymphocytes % 16.5 L (24.0-44.0) % Monocytes % 6.3 (0.0-12.0) % Eosinophils % 0.2 (0.00-5.0) % Basophils % 0.2 (0.0-0.4) % Absolute Granulocytes 9.54 H (1.4-6.9) x10^3/uL Basophils # 0.02 (0-0.4) x10^3/uL Sodium 138 (137-145) mmol/L Potassium 4.5 (3.5-5.1) mmol/L Chloride 102 (98-107) mmol/L Carbon Dioxide 28 (22-30) mmol/L Anion Gap 12.3 (5-15) MEQ/L BUN 23 H (7-17) mg/dL Creatinine 1.34 H (0.52-1.04) mg/dL Estimated GFR 41.6 ML/MIN Glucose 139 H (74-106) mg/dL POC Glucometer (74 to 106) mg/dL Hemoglobin A1c (4.5-6.0) % Calcium 9.0 (8.4-10.2) mg/dL Total Bilirubin 0.40 (0.2-1.3) mg/dL AST 19 (14-36) U/L ALT 12 (0-35) U/L Alkaline Phosphatase 98 (38-126) U/L Troponin I (0.000-0.034) ng/mL Serum Total Protein 6.7 (6.3-8.2) g/dL Albumin 3.9 (3.5-5.0) g/dL Prealbumin 17.88 (17.6-36.0) mg/dL Amylase (30-110) U/L Lipase (23-300) U/L Urinalys Dipstick Clnc Urine Color (YELLOW) Urine Appearance (CLEAR) Urine pH (5-6) Ur Specific [place] (1.005-1.025) POC Urine Protein Conf (Negative) Urine Ketones (NEGATIVE) Urine Nitrite (NEGATIVE) Urine Bilirubin (NEGATIVE) Urine Urobilinogen (0-1) mg/dL Urine Leukocytes (NEGATIVE) Urine WBC (Auto) (0-5) /HPF Urine RBC (Auto) (0-2) /HPF U Epithel Cells (Auto) (FEW) /HPF Urine Bacteria (Auto) (NEGATIVE) /HPF Urine RBC (0-5) Seth/ul Other Casts (Auto) (NEGATIVE) /LPF Urine Mucus (Auto) (NEGATIVE) /HPF Ur Culture Indicated? Urine Glucose (NEGATIVE) mg/dL Influenza Type A Ag (NEGATIVE) Influenza Type B Ag (NEGATIVE) RSV (PCR) (Negative) SARS-CoV-2 (PCR) (NEGATIVE) 01/27/22 01/27/22 01/27/22 Range/Units 04:00 07:20 11:30 WBC (4.0-10.5) x10^3/uL RBC (4.1-5.4) x10^6/uL Hgb (12.0-16.0) g/dL Hct (35-47) % MCV (78-100) fL MCH (26-32) pg MCHC (32-36) g/dL RDW (11.5-14.0) % Plt Count (150-450) x10^3/uL MPV (7.5-11.0) fL Gran % (36.0-66.0) % Immature Gran % (Auto) (0.00-0.4) % Nucleat RBC Rel Count (0.00-0.1) % Eos # (Auto) (0-0.5) x10^3/uL Immature Gran # (Auto) (0.00-0.03) x10^3u/L Absolute Lymphs (auto) (1.0-4.6) x10^3/uL Absolute Monos (auto) (0.0-1.3) x10^3/uL Absolute Nucleated RBC (0.00-0.01) x10^3u/L Lymphocytes % (24.0-44.0) % Monocytes % (0.0-12.0) % Eosinophils % (0.00-5.0) % Basophils % (0.0-0.4) % Absolute Granulocytes (1.4-6.9) x10^3/uL Basophils # (0-0.4) x10^3/uL Sodium (137-145) mmol/L Potassium (3.5-5.1) mmol/L Chloride (98-107) mmol/L Carbon Dioxide (22-30) mmol/L Anion Gap (5-15) MEQ/L BUN (7-17) mg/dL Creatinine (0.52-1.04) mg/dL Estimated GFR ML/MIN Glucose (74-106) mg/dL POC Glucometer 129 H 129 H (74 to 106) mg/dL Hemoglobin A1c 7.50 H (4.5-6.0) % Calcium (8.4-10.2) mg/dL Total Bilirubin (0.2-1.3) mg/dL AST (14-36) U/L ALT (0-35) U/L Alkaline Phosphatase (38-126) U/L Troponin I (0.000-0.034) ng/mL Serum Total Protein (6.3-8.2) g/dL Albumin (3.5-5.0) g/dL Prealbumin (17.6-36.0) mg/dL Amylase (30-110) U/L Lipase (23-300) U/L Urinalys Dipstick Clnc Urine Color (YELLOW) Urine Appearance (CLEAR) Urine pH (5-6) Ur Specific [place] (1.005-1.025) POC Urine Protein Conf (Negative) Urine Ketones (NEGATIVE) Urine Nitrite (NEGATIVE) Urine Bilirubin (NEGATIVE) Urine Urobilinogen (0-1) mg/dL Urine Leukocytes (NEGATIVE) Urine WBC (Auto) (0-5) /HPF Urine RBC (Auto) (0-2) /HPF U Epithel Cells (Auto) (FEW) /HPF Urine Bacteria (Auto) (NEGATIVE) /HPF Urine RBC (0-5) Seth/ul Other Casts (Auto) (NEGATIVE) /LPF Urine Mucus (Auto) (NEGATIVE) /HPF Ur Culture Indicated? Urine Glucose (NEGATIVE) mg/dL Influenza Type A Ag (NEGATIVE) Influenza Type B Ag (NEGATIVE) RSV (PCR) (Negative) SARS-CoV-2 (PCR) (NEGATIVE) 01/27/22 Range/Units 12:00 WBC (4.0-10.5) x10^3/uL RBC (4.1-5.4) x10^6/uL Hgb (12.0-16.0) g/dL Hct (35-47) % MCV (78-100) fL MCH (26-32) pg MCHC (32-36) g/dL RDW (11.5-14.0) % Plt Count (150-450) x10^3/uL MPV (7.5-11.0) fL Gran % (36.0-66.0) % Immature Gran % (Auto) (0.00-0.4) % Nucleat RBC Rel Count (0.00-0.1) % Eos # (Auto) (0-0.5) x10^3/uL Immature Gran # (Auto) (0.00-0.03) x10^3u/L Absolute Lymphs (auto) (1.0-4.6) x10^3/uL Absolute Monos (auto) (0.0-1.3) x10^3/uL Absolute Nucleated RBC (0.00-0.01) x10^3u/L Lymphocytes % (24.0-44.0) % Monocytes % (0.0-12.0) % Eosinophils % (0.00-5.0) % Basophils % (0.0-0.4) % Absolute Granulocytes (1.4-6.9) x10^3/uL Basophils # (0-0.4) x10^3/uL Sodium (137-145) mmol/L Potassium (3.5-5.1) mmol/L Chloride (98-107) mmol/L Carbon Dioxide (22-30) mmol/L Anion Gap (5-15) MEQ/L BUN (7-17) mg/dL Creatinine (0.52-1.04) mg/dL Estimated GFR ML/MIN Glucose (74-106) mg/dL POC Glucometer (74 to 106) mg/dL Hemoglobin A1c (4.5-6.0) % Calcium (8.4-10.2) mg/dL Total Bilirubin (0.2-1.3) mg/dL AST (14-36) U/L ALT (0-35) U/L Alkaline Phosphatase (38-126) U/L Troponin I (0.000-0.034) ng/mL Serum Total Protein (6.3-8.2) g/dL Albumin (3.5-5.0) g/dL Prealbumin (17.6-36.0) mg/dL Amylase (30-110) U/L Lipase (23-300) U/L Urinalys Dipstick Clnc MAIN LAB Urine Color YELLOW (YELLOW) Urine Appearance CLEAR (CLEAR) Urine pH 5.5 (5-6) Ur Specific [place] 1.020 (1.005-1.025) POC Urine Protein Conf NEGATIVE (Negative) Urine Ketones NEGATIVE (NEGATIVE) Urine Nitrite NEGATIVE (NEGATIVE) Urine Bilirubin NEGATIVE (NEGATIVE) Urine Urobilinogen 1 (0-1) mg/dL Urine Leukocytes SMALL (NEGATIVE) Urine WBC (Auto) 16-25 (0-5) /HPF Urine RBC (Auto) 51-100 (0-2) /HPF U Epithel Cells (Auto) NONE (FEW) /HPF Urine Bacteria (Auto) RARE (NEGATIVE) /HPF Urine RBC MODERATE (0-5) Seth/ul Other Casts (Auto) (NEGATIVE) /LPF Urine Mucus (Auto) SLIGHT (NEGATIVE) /HPF Ur Culture Indicated? YES Urine Glucose NEGATIVE (NEGATIVE) mg/dL Influenza Type A Ag (NEGATIVE) Influenza Type B Ag (NEGATIVE) RSV (PCR) (Negative) SARS-CoV-2 (PCR) (NEGATIVE) Accuchecks Date 01/27/22 Date 01/27/22 Time 11:34 Time 08:11 - Radiology Impressions Radiology Exams & Impressions: Radiology Procedures Category Date Time Status ABDOMEN AND PELVIS W/0 CONTRAS [CT] Stat Exams 01/26/22 22:49 Completed VENOUS BILATERAL EXTREMITY [US] Urgent Exams 01/27/22 12:23 Taken Assessment/Plan (1) Abdominal pain Current Visit: Yes Status: Acute Qualifiers: Abdominal location: periumbilical Qualified Code(s): R10.33 - Periumbilical pain Assessment & Plan: periumbilcal hernia and surrounding skin Code(s): R10.9 - UNSPECIFIED ABDOMINAL PAIN (2) Cellulitis of lower extremity Current Visit: Yes Status: Acute (3) UTI (urinary tract infection) Current Visit: Yes Status: Acute Assessment & Plan: culture pending Code(s): N39.0 - URINARY TRACT INFECTION, SITE NOT SPECIFIED (4) Nausea & vomiting Current Visit: Yes Status: Acute Assessment & Plan: improved since admission Code(s): R11.2 - NAUSEA WITH VOMITING, UNSPECIFIED (5) Hyperglycemia due to type 2 diabetes mellitus Current Visit: Yes Status: Acute Assessment & Plan: A1C = 7.5% Code(s): E11.65 - TYPE 2 DIABETES MELLITUS WITH HYPERGLYCEMIA
--- NOTE | 2022-01-27 20:45 | XRAY ---
Indication: Pain. DVT. 2-dimensional sonogram and color Doppler imaging of the major venous vessels of the right leg leg performed. Comparison: None Study is incomplete as the patient terminated the exam due to pain. Only the visualized common femoral, greater saphenous, deep femoral, and mid to proximal femoral veins are negative for thrombus. Veins demonstrate normal compressibility. Venous waveforms are normal with without augmentation. Impression: Right leg DVT study is limited. Negative for DVT. Comment: Preliminary report was given.
[2022-01-27] MEDS: ROCEPHIN 1 Gm-D5w 50 ml Bag** 1 G/50 ML IVPB IV SCH (21:39)
[2022-01-27] MEDS ORDERED: Lomotil PO ONE (22:48)
[2022-01-28] MEDS: SUBLIMAZE 100 MCG/2 ML IV PRN ×6 (01:35→22:13)
[2022-01-28] MEDS: Zofran 4 MG/2 ML VIAL IV PRN ×6 (01:35→22:13)
[2022-01-28 06:17] LABS: Absolute Neutrophil Ct (ANC) 6.83 x10^3/uL (1.4-6.9); Basophil (Absolute #) 0.03 x10^3/uL (0-0.4); Eosinophil % 1.2 % (0.00-5.0); Eosinophil (Absolute #) 0.12 x10^3/uL (0-0.5); Hematocrit 33.3 % (35-47); Hemoglobin 10.1 g/dL (12.0-16.0); Lymphocyte (Absolute #) 2.18 x10^3/uL (1.0-4.6); Lymphocytes % 21.7 % (24.0-44.0); Mean Cell Volume 83.3 fL (78-100); Mean Corpuscular Hemoglobin 25.3 pg (26-32); Mean Corpuscular Hgb Concent. 30.3 g/dL (32-36); Monocyte (Absolute #) 0.78 x10^3/uL (0.0-1.3); Monocytes % 7.8 % (0.0-12.0); Neutrophil % 67.9 % (36.0-66.0); Platelet Count 147 x10^3/uL (150-450); Red Cell Distribution Width 12.7 % (11.5-14.0); White Blood Count 10.1 x10^3/uL (4.0-10.5)
[2022-01-28 06:53] LABS: ALBUMIN 3.4 g/dL (3.5-5.0); ANION GAP 11.7 MEQ/L (5-15); BILIRUBIN,TOTAL 0.4 mg/dL (0.2-1.3); Calcium 8.8 mg/dL (8.4-10.2); Creatinine 1 1.33 mg/dL (0.52-1.04); EST GLOMERULAR FILTRATION RATE 41.9 ML/MIN; Potassium 3.8 mmol/L (3.5-5.1); Total Protein 6.3 g/dL (6.3-8.2)
[2022-01-28] MEDS: Sodium Chloride 0.9% 1000 ML 1,000 ML IV SCH ×2 (08:05→17:52)
[2022-01-28] MEDS: MAG-OX 400 PO SCH ×2 (09:13→17:45)
[2022-01-28] MEDS: Zestril 20 MG PO SCH ×2 (09:13→17:44)
[2022-01-28] MEDS: Cymbalta 30 MG Capsule PO SCH ×2 (09:13→17:45)
[2022-01-28] MEDS: ENOXAPARIN SODIUM SQ SCH (09:13)
[2022-01-28] MEDS: PROTONIX 40 MG IV IV SCH (09:13)
[2022-01-28] MEDS: Klor Con PO SCH ×2 (09:13→17:45)
[2022-01-28] MEDS: Lasix 40 MG PO SCH ×2 (09:13→17:45)
[2022-01-28] MEDS ORDERED: VITAMIN D2 PO SCH (10:00)
[2022-01-28] MEDS: NYSTOP 30 GM CREAM TOP PRN (10:13)
[2022-01-28] MEDS: Lomotil PO PRN (11:31)
[2022-01-28 12:41] LABS: 027 TOX PROD PRESUMPTIVE NEGATIVE (NEGATIVE); TOXIGENIC C. DIFF ORG NEGATIVE (NEGATIVE)
[2022-01-28] MEDS ORDERED: NYSTOP 30 GM CREAM TOP SCH (15:00)
[2022-01-28] MEDS: ROCEPHIN 1 Gm-D5w 50 ml Bag** 1 G/50 ML IVPB IV SCH (22:14)
[2022-01-29] MEDS: Sodium Chloride 0.9% 1000 ML 1,000 ML IV SCH ×4 (02:08→21:31)
[2022-01-29] MEDS: SUBLIMAZE 100 MCG/2 ML IV PRN ×5 (02:08→18:37)
[2022-01-29] MEDS: Zofran 4 MG/2 ML VIAL IV PRN ×4 (02:08→18:37)
[2022-01-29] MEDS: Klor Con PO SCH ×2 (08:18→10:59)
[2022-01-29] MEDS: Zestril 20 MG PO SCH ×2 (08:18→10:59)
[2022-01-29] MEDS: Cymbalta 30 MG Capsule PO SCH ×2 (08:18→10:59)
[2022-01-29] MEDS: PROTONIX 40 MG IV IV SCH (08:18)
[2022-01-29] MEDS: ENOXAPARIN SODIUM SQ SCH (08:19)
[2022-01-29] MEDS: MAG-OX 400 PO SCH ×2 (08:19→10:59)
[2022-01-29] MEDS: Lasix 40 MG PO SCH ×2 (08:19→10:59)
--- NOTE | 2022-01-29 08:58 | PCM.NOTE ---
Date and Time: 01/28/22 1400 (late entry) Subjective Assessment: Patient c/o feeling hungry but afraid to eat bc "it will cause diarrhea". No emesis,has had clear liquids this morning.Still aking for pain meds around the clock but pain is less intense. Gen Surgery consult appreciated. Dr Boone advises umbilical hernia repair at a bariatric facility,stated not emergent due to CT abd does not show strangulated bowel. Need to eval for GB dz in the AM. Less drainage from umbilicus and WBC down-wnl . Objective Exam General Appearance: mild distress (more alert and sitting up in bed.) Neurologic Exam: alert, oriented x 3, normal mood/affect Skin Exam: normal color, warm, dry Wound Assessment: Skin/Wound Assessment Wound/Incision Assessment Start: 01/27/22 02:59 Text: Status: Active Freq: Q6H Protocol: Document 01/29/22 02:00 RN (Rec: 01/29/22 02:17 RN [id number]) Wound/Incision Assessment Lower Anterior/Posterior Calf Wound Assessment Shift Assessment Comment cellulitis to bilateral lower extremities---no changes Neck Exam: normal inspection Respiratory Exam: normal breath sounds Cardiovascular Exam: regular rate/rhythm Gastrointestinal/Abdomen Exam: soft (BS present upper abdomen), tenderness (RUQ and above umbilicus. Umbilical hernia is soft -less drainage-moist but no edenilson purulent drainage) Extremity Exam: other (BL LE redness and lymphedema,chronic skin changes-too tender to tolerate the doppler yesterday) OBJECTIVE DATA Vital Signs: Vital Signs - 24 hr Temp Pulse Resp BP Pulse Ox 01/29/22 07:07 98.7 F 81 18 144/63 97 01/29/22 04:00 98.7 F 83 18 152/65 93 L 01/29/22 00:00 97.8 F 79 19 137/61 98 01/28/22 19:56 97.8 F 83 20 143/64 98 01/28/22 16:00 97.4 F 78 18 139/65 96 01/28/22 11:46 97.1 F 75 20 141/61 96 Pain Assessment - Last Documented Pain Intensity 6 Pain Scale Used 0-10 Pain Scale Intake and Output: Intake & Output 01/26/22 01/27/22 01/28/22 01/29/22 11:59 11:59 11:59 11:59 Intake Total 548 359 8357 Output Total 7806 721 Balance 313 -250 882 Weight 157.8 kg Lab Results: Lab Results-Last 24 Hours 01/28/22 01/28/22 01/29/22 Range/Units 11:54 21:10 06:54 POC Glucometer 103 87 (74 to 106) mg/dL C. difficile Screen NEGATIVE (NEGATIVE) C.difficile [id number] PRESUMPTIVE NEGATIVE (NEGATIVE) Radiology Exams: Radiology Procedures Category Date Time Status VENOUS BILATERAL EXTREMITY [US] Urgent Exams 01/27/22 12:23 Completed Assessment/Plan (1) Abdominal pain Current Visit: Yes Status: Acute Qualifiers: Abdominal location: periumbilical Qualified Code(s): R10.33 - Periumbilical pain Assessment & Plan: improved but still requiring pain meds around the clock. GBUS in the AM Code(s): R10.9 - UNSPECIFIED ABDOMINAL PAIN (2) Vomiting Current Visit: No Status: Resolved Qualifiers: Vomiting type: unspecified Nausea presence: with nausea Qualified Code(s): R11.2 - Nausea with vomiting, unspecified Assessment & Plan: has tolerated clear liquids Code(s): R11.10 - VOMITING, UNSPECIFIED (3) Umbilical hernia Current Visit: Yes Status: Chronic Qualifiers: Obstruction and gangrene presence: without obstruction or gangrene Qualified Code(s): K42.9 - Umbilical hernia without obstruction or gangrene Assessment & Plan: see Gen Surgery note Code(s): K42.9 - UMBILICAL HERNIA WITHOUT OBSTRUCTION OR GANGRENE (4) Diarrhea Current Visit: Yes Status: Acute Qualifiers: Diarrhea type: unspecified type Qualified Code(s): R19.7 - Diarrhea, unspecified Assessment & Plan: Cdiff negative,GBUS troy Code(s): R19.7 - DIARRHEA, UNSPECIFIED
--- NOTE | 2022-01-29 09:25 | PCM.NOTE ---
Date and Time: 01/29/22923 Subjective Assessment: Patient was able to advance diet and ate baked chicken for lunch,unfortunately she was to be NPO for GBUS. Patint still having diarrhea after eating no further emesis. Still c/o RUQ and pain around the proximal periumbilical ventral hernia. Patient is requesting Dr Charanjit Hernandez to be notified of her situation. Dr Boone covering over the weekend and advised transfer to Bariatric Facility. Objective Exam General Appearance: no apparent distress Neurologic Exam: alert, oriented x 3 Skin Exam: warm, dry, pale Wound Assessment: Skin/Wound Assessment Wound/Incision Assessment Start: 01/27/22 02:59 Text: Status: Active Freq: Q6H Protocol: Document 01/29/22 02:00 RN (Rec: 01/29/22 02:17 RN [id number]) Wound/Incision Assessment Lower Anterior/Posterior Calf Wound Assessment Shift Assessment Comment cellulitis to bilateral lower extremities---no changes Respiratory Exam: normal breath sounds Cardiovascular Exam: regular rate/rhythm Gastrointestinal/Abdomen Exam: tenderness (RUQ), other (umbilical hernia protruberant ,soft,tender . Less drainage-approx 1ccwatery yellow from umbilical fold) OBJECTIVE DATA Vital Signs: Vital Signs - 24 hr Temp Pulse Resp BP Pulse Ox 01/29/22 07:07 98.7 F 81 18 144/63 97 01/29/22 04:00 98.7 F 83 18 152/65 93 L 01/29/22 00:00 97.8 F 79 19 137/61 98 01/28/22 19:56 97.8 F 83 20 143/64 98 01/28/22 16:00 97.4 F 78 18 139/65 96 01/28/22 11:46 97.1 F 75 20 141/61 96 Pain Assessment - Last Documented Pain Intensity 6 Pain Scale Used 0-10 Pain Scale Intake and Output: Intake & Output 01/26/22 01/27/22 01/28/22 01/29/22 11:59 11:59 11:59 11:59 Intake Total 499 356 7304 Output Total 1175 700 Balance 313 835 872 Weight 157.8 kg Lab Results: Lab Results-Last 24 Hours 01/28/22 01/28/22 01/29/22 Range/Units 11:54 21:10 06:54 POC Glucometer 103 87 (74 to 106) mg/dL C. difficile Screen NEGATIVE (NEGATIVE) C.difficile [id number] PRESUMPTIVE NEGATIVE (NEGATIVE) Radiology Exams: Radiology Procedures Category Date Time Status GALLBLADDER [US] Routine Exams 01/29/22 09:11 Ordered VENOUS BILATERAL EXTREMITY [US] Urgent Exams 01/27/22 12:23 Completed Assessment/Plan (1) Abdominal pain Current Visit: Yes Status: Acute Qualifiers: Abdominal location: right upper quadrant Qualified Code(s): R10.11 - Right upper quadrant pain Assessment & Plan: GBUS in am Code(s): R10.9 - UNSPECIFIED ABDOMINAL PAIN (2) Vomiting Current Visit: No Status: Resolved Qualifiers: Vomiting type: unspecified Nausea presence: with nausea Code(s): R11.10 - VOMITING, UNSPECIFIED (3) Umbilical hernia Current Visit: Yes Status: Chronic Qualifiers: Obstruction and gangrene presence: without obstruction or gangrene Qualified Code(s): K42.9 - Umbilical hernia without obstruction or gangrene Code(s): K42.9 - UMBILICAL HERNIA WITHOUT OBSTRUCTION OR GANGRENE (4) Diarrhea Current Visit: Yes Status: Acute Qualifiers: Diarrhea type: unspecified type Qualified Code(s): R19.7 - Diarrhea, unspecified Assessment & Plan: after eating Code(s): R19.7 - DIARRHEA, UNSPECIFIED
[2022-01-29 10:01] LABS: Absolute Neutrophil Ct (ANC) 8.21 x10^3/uL (1.4-6.9); Basophil (Absolute #) 0.04 x10^3/uL (0-0.4); Eosinophil % 2.9 % (0.00-5.0); Eosinophil (Absolute #) 0.33 x10^3/uL (0-0.5); Hemoglobin 10.8 g/dL (12.0-16.0); Mean Cell Volume 83.9 fL (78-100); Mean Corpuscular Hemoglobin 25.9 pg (26-32); Mean Corpuscular Hgb Concent. 30.9 g/dL (32-36); Mean Platelet Volume 10.8 fL (7.5-11.0); Monocyte (Absolute #) 0.69 x10^3/uL (0.0-1.3); Monocytes % 6.1 % (0.0-12.0); Neutrophil % 73.3 % (36.0-66.0); Platelet Count 139 x10^3/uL (150-450); Red Blood Count 4.17 x10^6/uL (4.1-5.4); Red Cell Distribution Width 12.9 % (11.5-14.0); White Blood Count 11.2 x10^3/uL (4.0-10.5)
[2022-01-29 10:14] LABS: ALBUMIN 3.5 g/dL (3.5-5.0); ANION GAP 11.8 MEQ/L (5-15); BILIRUBIN,TOTAL 0.4 mg/dL (0.2-1.3); Calcium 8.7 mg/dL (8.4-10.2); Creatinine 1 1.25 mg/dL (0.52-1.04); Potassium 3.9 mmol/L (3.5-5.1); Total Protein 6.3 g/dL (6.3-8.2)
--- NOTE | 2022-01-29 10:41 | CONS ---
CONSULT DATE: 01/27/2022 HISTORY: A 71-year-old morbidly obese female with BMI of 57 to 60 according to the staff. She had been seen years ago. She is being seen for Dr. Hernandez who was lead radiation therapist when the consult came in. She has duodenal ulcer and chronic hernia. She was seen in follow up with endoscopy. Follow up regarding her hernia at that time. In the past, she had some nausea and vomiting, urinary tract infection, some aches and pains. She came in where CT scan showed large ventral hernia but no bowel obstruction. No evidence of any strangulation. They apparently admitted her yesterday without calling a surgeon here to [facility]. PAST MEDICAL HISTORY: Hypertension, chronic obstructive pulmonary disease, osteoarthritis, reflux, anxiety and depression, morbidly obese. PAST SURGICAL HISTORY: D&C. Endoscopy. Dental extractions. EGD. HOME MEDICATIONS: Duloxetine, potassium chloride, vitamin D2, furosemide, oxycodone. ALLERGIES: ERYTHROMYCIN. SULFA. LATEX. FAMILY HISTORY: Negative in regards to this problem. SOCIAL HISTORY: Former smoker. REVIEW OF SYSTEMS: Fourteen systems reviewed per admission assessment pertinent for as noted above. She had some aches and nausea. LAB DATA AND TESTS: CT scan does not show any bowel obstruction or strangulation of her chronic hernia, no gallstones noted on CT scan, new cystic adnexal mass larger from previous. PHYSICAL EXAMINATION: GENERAL: Chronically ill, super morbidly obese female with BMI of 57 to 60. A 71-year-old with multiple medical problems on chronic narcotics. She has a chronic ventral hernia on my view of the CT scan. It looks like chronic omentum and nonobstructive bowel in it. HEENT: Sclera nonicteric. NECK: No JVD. CHEST: Equal excursion, nonlabored breathing. CVS: Regular rhythm and pulse. ABDOMEN: Soft, super morbidly obese. She has chronic ventral hernia, thin skin with just a small amount of drainage. No evidence of any major abscess. EXTREMITIES: She has some venous stasis on her legs, edema and obesity. NEURO: Alert, oriented. PSYCH: Appropriate mood and affect. IMPRESSION: A 71-year-old with super morbidly obese female with chronic large ventral hernia loss of domain. No evidence of any bowel obstruction or free air. No need evidence of need for emergent surgery. I feel she is not a candidate here as she likely has loss of domain. I feel she would benefit from tertiary center referral given her super morbid obesity. 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 She does have a small amount of ascites. The patient has rather thin skin. I do not feel that she is a candidate to be done at this critical access facility, suggest transferring her to a tertiary center with bariatric capabilities to deal with loss of domain from chronically large hernia. Again, no free air. She is nontoxic. Given her super morbid obesity, I feel she is not a candidate for surgery at this time, recommend tertiary referral.
[2022-01-29] MEDS: ROCEPHIN 1 Gm-D5w 50 ml Bag** 1 G/50 ML IVPB IV SCH (21:31)
[2022-01-30] MEDS: SUBLIMAZE 100 MCG/2 ML IV PRN ×2 (00:09→05:27)
[2022-01-30] MEDS: Zofran 4 MG/2 ML VIAL IV PRN ×2 (00:09→05:27)
[2022-01-30] MEDS: Lomotil PO PRN ×4 (07:30→22:01)
[2022-01-30] MEDS: ENOXAPARIN SODIUM SQ SCH (10:03)
[2022-01-30] MEDS: PROTONIX 40 MG IV IV SCH (10:03)
[2022-01-30] MEDS: OXYCODONE-ACETAMINOPHEN 10-325 PO PRN ×3 (10:04→22:01)
[2022-01-30] MEDS: Klor Con PO SCH (10:42)
[2022-01-30] MEDS: Zestril 20 MG PO SCH (10:42)
[2022-01-30] MEDS: MAG-OX 400 PO SCH (10:42)
[2022-01-30] MEDS: Lasix 40 MG PO SCH (10:42)
[2022-01-30] MEDS: Cymbalta 30 MG Capsule PO SCH (10:42)
--- NOTE | 2022-01-30 10:58 | XRAY ---
Exam: Gallbladder ultrasound from 01/30/2022. Comparison: CT of the abdomen and pelvis without IV contrast from 01/26/2022 and gallbladder ultrasound from 02/12/2018. Indication: 71-year-old female with abdominal pain. Findings: The technologist infectious disease left a note that the exam was technically difficult due to the patient's large body habitus. She is morbidly obese. Cine images through the gallbladder reveals a normal sized gallbladder containing multiple echogenic posterior shadowing gallstones within the dependent portion of the gallbladder lumen consistent with cholelithiasis. The gallbladder wall measures 2.3 mm which is normal. No pericholecystic edema or fluid is seen. The proximal common bile duct measures 4.3 mm which is normal. The liver appears enlarged with the right hepatic lobe measuring 22.8 cm in greatest craniocaudal dimension. In addition, there is some increased echogenicity within the liver suggestive of steatosis. No intrahepatic biliary duct distention is seen. No definite focal liver mass is evident. Again, assessment is limited. The pancreatic head and tail are partially obscured by adjacent bowel gas. The body of the pancreas appears unremarkable. I see no free fluid within the right upper quadrant. The right kidney measures about 10.0 cm in length. No right renal mass or hydronephrosis is seen. Impression: 1. Extensive cholelithiasis with multiple echogenic gallstones layering within the posterior dependent portion of a normal sized gallbladder lumen and causing significant posterior acoustical shadowing. 2. No gallbladder enlargement, gallbladder wall thickening, or biliary duct distention is seen. 3. Hepatomegaly and hepatic steatosis.
[2022-01-30 13:33] LABS: Absolute Neutrophil Ct (ANC) 6.98 x10^3/uL (1.4-6.9); Basophil (Absolute #) 0.06 x10^3/uL (0-0.4); Eosinophil % 4.1 % (0.00-5.0); Eosinophil (Absolute #) 0.41 x10^3/uL (0-0.5); Lymphocyte (Absolute #) 1.82 x10^3/uL (1.0-4.6); Lymphocytes % 18.3 % (24.0-44.0); Mean Cell Volume 84.8 fL (78-100); Mean Corpuscular Hemoglobin 25.7 pg (26-32); Mean Corpuscular Hgb Concent. 30.3 g/dL (32-36); Mean Platelet Volume 11.4 fL (7.5-11.0); Monocyte (Absolute #) 0.59 x10^3/uL (0.0-1.3); Monocytes % 5.9 % (0.0-12.0); Neutrophil % 70.1 % (36.0-66.0); Platelet Count 129 x10^3/uL (150-450); Red Blood Count 3.89 x10^6/uL (4.1-5.4); Red Cell Distribution Width 13.2 % (11.5-14.0)
[2022-01-30 13:52] LABS: ALBUMIN 3.4 g/dL (3.5-5.0); ANION GAP 10.4 MEQ/L (5-15); BILIRUBIN,TOTAL 0.3 mg/dL (0.2-1.3); Calcium 8.5 mg/dL (8.4-10.2); Creatinine 1 1.28 mg/dL (0.52-1.04); EST GLOMERULAR FILTRATION RATE 43.8 ML/MIN; Potassium 3.6 mmol/L (3.5-5.1)
[2022-01-30] MEDS: Sodium Chloride 0.9% 1000 ML 1,000 ML IV SCH (16:08)
[2022-01-30] MEDS: NYSTOP 30 GM CREAM TOP PRN (18:23)
--- NOTE | 2022-01-30 18:52 | PCM.NOTE ---
Date and Time: 01/30/221849 Subjective Assessment: GBUS today shows gallstones. RUQ pain less today still diarrhea after each meal. LIver enzymes and bili and amylase and lipase are all normal. Objective Exam General Appearance: no apparent distress, anxiety (over going home,states hoped to go directly for surgery at [facility] with Dr Charanjit Hernandez.) Neurologic Exam: alert, oriented x 3 Skin Exam: warm, dry Wound Assessment: Skin/Wound Assessment Wound/Incision Assessment Start: 01/27/22 02:59 Text: Status: Active Freq: Q6H Protocol: Document 01/30/22 13:15 KINGA (Rec: 01/30/22 13:15 KINGA [id number]) Wound/Incision Assessment Lower Anterior/Posterior Calf Wound Assessment Shift Assessment Comment cellulitis to bilateral lower extremities---no changes Respiratory Exam: normal breath sounds Cardiovascular Exam: regular rate/rhythm Gastrointestinal/Abdomen Exam: tenderness (RUQ), guarding, other (no drainage from umbilical hernia is soft ,protruberant) OBJECTIVE DATA Vital Signs: Vital Signs - 24 hr Temp Pulse Resp BP Pulse Ox 01/30/22 16:00 98.0 F 78 17 178/77 96 01/30/22 11:33 98.4 F 84 16 167/70 94 L 01/30/22 07:31 97.9 F 85 16 141/66 97 01/30/22 04:00 98.7 F 82 16 137/65 94 L 01/29/22 23:25 98.9 F 83 16 145/66 96 01/29/22 18:51 98.9 F 86 18 134/67 95 Pain Assessment - Last Documented Pain Intensity 5 Pain Scale Used 0-10 Pain Scale Intake and Output: Intake & Output 01/28/22 01/29/22 01/30/22 01/31/22 11:59 11:59 11:59 11:59 Intake Total 340 1812 3467 1887 Output Total 1175 700 500 500 Balance -835 1112 2967 1387 Lab Results: Lab Results-Last 24 Hours 01/30/22 01/30/22 01/30/22 Range/Units 07:16 13:30 13:30 WBC 10.0 (4.0-10.5) x10^3/uL RBC 3.89 L (4.1-5.4) x10^6/uL Hgb 10.0 L (12.0-16.0) g/dL Hct 33.0 L (35-47) % MCV 84.8 (78-100) fL MCH 25.7 L (26-32) pg MCHC 30.3 L (32-36) g/dL RDW 13.2 (11.5-14.0) % Plt Count 129 L (150-450) x10^3/uL MPV 11.4 H (7.5-11.0) fL Gran % 70.1 H (36.0-66.0) % Immature Gran % (Auto) 1.0 H (0.00-0.4) % Nucleat RBC Rel Count 0.0 (0.00-0.1) % Eos # (Auto) 0.41 (0-0.5) x10^3/uL Immature Gran # (Auto) 0.10 H (0.00-0.03) x10^3u/L Absolute Lymphs (auto) 1.82 (1.0-4.6) x10^3/uL Absolute Monos (auto) 0.59 (0.0-1.3) x10^3/uL Absolute Nucleated RBC 0.00 (0.00-0.01) x10^3u/L Lymphocytes % 18.3 L (24.0-44.0) % Monocytes % 5.9 (0.0-12.0) % Eosinophils % 4.1 (0.00-5.0) % Basophils % 0.6 (0.0-0.4) % Absolute Granulocytes 6.98 H (1.4-6.9) x10^3/uL Basophils # 0.06 (0-0.4) x10^3/uL Sodium 140 (137-145) mmol/L Potassium 3.6 (3.5-5.1) mmol/L Chloride 109 H (98-107) mmol/L Carbon Dioxide 24 (22-30) mmol/L Anion Gap 10.4 (5-15) MEQ/L BUN 15 (7-17) mg/dL Creatinine 1.28 H (0.52-1.04) mg/dL Estimated GFR 43.8 ML/MIN Glucose 164 H (74-106) mg/dL POC Glucometer 94 (74 to 106) mg/dL Calcium 8.5 (8.4-10.2) mg/dL Total Bilirubin 0.30 (0.2-1.3) mg/dL AST 20 (14-36) U/L ALT 19 (0-35) U/L Alkaline Phosphatase 82 (38-126) U/L Serum Total Protein 6.0 L (6.3-8.2) g/dL Albumin 3.4 L (3.5-5.0) g/dL Amylase 39 (30-110) U/L Lipase 76 (23-300) U/L Radiology Exams: Radiology Procedures Category Date Time Status GALLBLADDER [US] Routine Exams 01/30/22 08:00 Completed Multi-Disciplinary Progress Notes: Multi-Disciplinary Progress Notes 01/30/22 13:12 Case Management Note by Jodee Gutierrez S/W PATIENT-SHE CONTINUES TO DENY ANY NEW NEEDS. SHE PLANS TO RETURN HOME WITH HER DAUGHTER TO ASSIST HER. [facility] BE[facility] UP FOR PATIENT Initialized on 01/30/22 13:12 - END OF NOTE Assessment/Plan (1) Abdominal pain Current Visit: Yes Status: Acute Qualifiers: Abdominal location: right upper quadrant Qualified Code(s): R10.11 - Right upper quadrant pain Code(s): R10.9 - UNSPECIFIED ABDOMINAL PAIN (2) Vomiting Current Visit: No Status: Resolved Qualifiers: Vomiting type: unspecified Nausea presence: with nausea Code(s): R11.10 - VOMITING, UNSPECIFIED (3) Umbilical hernia Current Visit: Yes Status: Chronic Qualifiers: Obstruction and gangrene presence: without obstruction or gangrene Qualified Code(s): K42.9 - Umbilical hernia without obstruction or gangrene Code(s): K42.9 - UMBILICAL HERNIA WITHOUT OBSTRUCTION OR GANGRENE (4) Diarrhea Current Visit: Yes Status: Acute Qualifiers: Diarrhea type: unspecified type Qualified Code(s): R19.7 - Diarrhea, unspecified Code(s): R19.7 - DIARRHEA, UNSPECIFIED (5) Lymph edema Current Visit: Yes Status: Chronic Assessment & Plan: with resolving cellulitis - awaiting Podiatry consult ,would benefit from compression wraps Code(s): I89.0 - LYMPHEDEMA, NOT ELSEWHERE CLASSIFIED
[2022-01-30] MEDS: ROCEPHIN 1 Gm-D5w 50 ml Bag** 1 G/50 ML IVPB IV SCH (21:39)
[2022-01-31] MEDS: Sodium Chloride 0.9% 1000 ML 1,000 ML IV SCH (02:05)
[2022-01-31] MEDS: OXYCODONE-ACETAMINOPHEN 10-325 PO PRN ×2 (06:20→08:10)
[2022-01-31 06:21] LABS: Adenovirus F40/41 Not Detected (Not Detected); Astrovirus Not Detected (Not Detected); Campylobacter Not Detected (Not Detected); Cryptosporidium Not Detected (Not Detected); Cyclospora cayetanensis Not Detected (Not Detected); Entamoeba histolytica Not Detected (Not Detected); Enteroaggregative E coli Not Detected (Not Detected); Enterpathogenic E coli Not Detected (Not Detected); Entertoxigenic E coli Not Detected (Not Detected); Giardia lamblia Not Detected (Not Detected); Norovirus GI/GII Not Detected (Not Detected); Plesiomonas shigelloides Not Detected (Not Detected); Rotavirus A Not Detected (Not Detected); Salmonella Not Detected (Not Detected); Shig-toxin-producing E coli Not Detected (Not Detected); Shigella/Enterinvasive E coli Not Detected (Not Detected); Vibrio Not Detected (Not Detected); Vibrio cholerae Not Detected (Not Detected); Yersinia enterocolitica Not Detected (Not Detected)
[2022-01-31] MEDS: Lomotil PO PRN (08:07)
[2022-01-31] MEDS: ROCEPHIN 1 Gm-D5w 50 ml Bag** 1 G/50 ML IVPB IV SCH (08:19)
[2022-01-31] MEDS: PROTONIX 40 MG IV IV SCH (09:08)
[2022-01-31] MEDS: Zestril 20 MG PO SCH (09:08)
[2022-01-31] MEDS: Klor Con PO SCH (09:08)
[2022-01-31] MEDS: MAG-OX 400 PO SCH (09:08)
[2022-01-31] MEDS: Lasix 40 MG PO SCH (09:08)
[2022-01-31] MEDS: Cymbalta 30 MG Capsule PO SCH (09:08)
[2022-01-31] MEDS: ENOXAPARIN SODIUM SQ SCH (09:08)
[2022-01-31 10:59] LABS: Sapovirus Not Detected (Not Detected)
[2022-01-31 11:23] VITALS: BP 180/77; PULSE 75; O2SAT 95
--- NOTE | 2022-01-31 12:25 | XRAY ---
Exam: AP upright portable chest film from 01/31/2022. Comparison: AP portable chest film from 06/26/2015 and two-view chest series from 03/18/2009. Indication: Shortness of breath; question PE. Findings: The patient is slightly rotated toward the left. The transverse heart size is normal. Calcification of the aortic knob is seen. The ashly and mediastinal structures appear unremarkable. The lungs are adequately inflated. There is a small density lateral to left hilum which I believe represents a vessel on end. This is essentially unchanged from 03/18/2009. There is some minimal atelectasis or scarring at the lateral left lung base. No air space infiltrates, vascular congestion, pneumothorax, or pleural fluid is seen. No acute osseous process is seen. Impression: 1. Minimal focal atelectasis or scarring is seen at the lateral left lung base. 2. No other acute cardiopulmonary disease is seen.
--- NOTE | 2022-01-31 13:20 | PCM.DCORD ---
- Discharge Disposition: Home, Self-Care Condition: Stable Prescriptions: No Action Lisinopril 20 mg [Zestril 20 MG] 20 mg PO DAILY Magnesium Oxide 400 mg [Mag-Ox 400] 400 mg PO DAILY Duloxetine HCl 30 mg [Cymbalta 30 MG Capsule] 60 mg PO DAILY Potassium Chloride Tab* [Klor Con] 10 meq PO DAILY Ergocalciferol (Vitamin D2) [Vitamin D2] 50,000 unit PO Q7D Furosemide 40 mg PO DAILY Oxycodone / APAP 10/325 mg [Oxycodone-Acetaminophen 10-325] 1 tab QID Instructions: Urinary Tract Infections in Adults, Abdominal Hernia (DC), Preventing Falls in Older Adults, Cellulitis (Skin Infection), Adult (DC), Gallstones (DC) Additional Instructions: -KEEP LEG WRAPS DRY AND INTACT. DR ROWLAND WILL CHANGE THEM NEXT WEEK AT YOUR APPOINTMENT. [facility] WILL CALL YOU TO SET UP A VISIT. THEIR PHONE NUMBER IS [phone] -AFTER APPOINTMENT WITH DR. ACKERMAN YOU WILL NEED TO HAVE AN APPOINTMENT SET UP WITH DR. SANCHEZ. Follow up with: FRANCESCA PALACIO DPM [ACTIVE STAFF] - 02/06/22 10:00 am BLANCA MARTINEZ [ACTIVE STAFF] - 02/08/22 3:40 pm ([place] Office) SÁNCHEZ ACKERMAN DO [ACTIVE STAFF] - 02/06/22 1:00 pm ()
--- NOTE | 2022-01-31 13:42 | PCM.DCORD ---
- Discharge Disposition: Home, Self-Care Condition: Stable Prescriptions: New Cefuroxime Axetil 500 mg [Ceftin 500 mg] 500 mg PO BID #14 tablet Hyoscyamine Sulfate 0.125 mg [Anaspaz 0.125 mg] 0.125 mg PO BID PRN #30 tablet Continue Lisinopril 20 mg [Zestril 20 MG] 20 mg PO DAILY Magnesium Oxide 400 mg [Mag-Ox 400] 400 mg PO DAILY Duloxetine HCl 30 mg [Cymbalta 30 MG Capsule] 60 mg PO DAILY Potassium Chloride Tab* [Klor Con] 10 meq PO DAILY Ergocalciferol (Vitamin D2) [Vitamin D2] 50,000 unit PO Q7D Furosemide 40 mg PO DAILY Oxycodone / APAP 10/325 mg [Oxycodone-Acetaminophen 10-325] 1 tab QID Instructions: Urinary Tract Infections in Adults, Abdominal Hernia (DC), Preventing Falls in Older Adults, Cellulitis (Skin Infection), Adult (DC), Gallstones (DC) Additional Instructions: -KEEP LEG WRAPS DRY AND INTACT. DR ROWLAND WILL CHANGE THEM NEXT WEEK AT YOUR APPOINTMENT. -[facility] THEY WILL CALL YOU TO SET UP A VISIT. THEIR PHONE NUMBER IS [phone] -AFTER APPOINTMENT WITH DR. ACKERMAN YOU WILL NEED TO HAVE AN APPOINTMENT SET UP WITH DR. SANCHEZ. Follow up with: FRANCESCA PALACIO DPM [ACTIVE STAFF] - 02/06/22 10:00 am BLANCA MARTINEZ [ACTIVE STAFF] - 02/08/22 3:40 pm ([place] Office) SÁNCHEZ ACKERMAN DO [ACTIVE STAFF] - 02/06/22 1:00 pm ()
--- NOTE | 2022-01-31 15:38 | PCM.CONS ---
Podiatry HPI - Consult Date of Consultation Date: 01/31/22 Reason for Consult: Lymphedema bilateral lower extremity Consulting Provider: FRANCESCA PALACIO DPM - [facility] History of Present Illness: Marley is a very pleasant 71 year olf female with chronic hx of lower extremity lymphedema. Patient with admission for UTI. Currently denies any constitutional symptoms of infection. denies any other pedal complaints at this time. Medications & Allergies Home Medications: Home Medication List Duloxetine HCl 30 mg [Cymbalta 30 MG Capsule] 60 mg PO DAILY 06/22/15 [History Confirmed 01/26/22] Lisinopril 20 mg [Zestril 20 MG] 20 mg PO DAILY 06/22/15 [History Confirmed 01/26/22] Magnesium Oxide 400 mg [Mag-Ox 400] 400 mg PO DAILY 06/22/15 [History Confirmed 01/26/22] Potassium Chloride Tab* [Klor Con] 10 meq PO DAILY 07/17/16 [History Confirmed 01/26/22] Ergocalciferol (Vitamin D2) [Vitamin D2] 50,000 unit PO Q7D 01/26/22 [History Confirmed 01/26/22] Furosemide 40 mg PO DAILY 01/26/22 [History Confirmed 01/26/22] Oxycodone / APAP 10/325 mg [Oxycodone-Acetaminophen 10-325] 1 tab QID 01/27/22 [History Confirmed 01/27/22] Cefuroxime Axetil 500 mg [Ceftin 500 mg] 500 mg PO BID #14 tablet 01/31/22 [Rx] Hyoscyamine Sulfate 0.125 mg [Anaspaz 0.125 mg] 0.125 mg PO BID PRN #30 tablet 01/31/22 [Rx] Allergies/Adverse Reactions: Allergies Allergy/AdvReac Type Severity Reaction Status Date / Time latex Allergy Intermediate Blisters Verified 01/26/22 21:41 erythromycin base AdvReac Severe Nausea Verified 01/26/22 21:41 Sulfa (Sulfonamide AdvReac Severe Nausea Verified 01/26/22 21:41 Antibiotics) - Past Medical History Past Medical History: Yes Neurological History: No Pertinent History, Other ENT History: No Pertinent History Cardiac History: Congestive Heart Failure, Hypertension Respiratory History: COPD Endocrine Medical History: No Pertinent History Musculoskelatal History: Osteoarthritis GI Medical History: GERD, Hernia History: No Pertinent History Pyscho-Social History: Anxiety, Depression Reproductive Disorders: Fibroids, Other Comment: depression. - Past Surgical History Past Surgical History: Yes Neuro Surgical History: No Pertinent History Cardiac History: No Pertinent History Respiratory Surgery: No Pertinent History GI Surgical History: No Pertinent History Genitourinary Surgical Hx: No Pertinent History Musculskeletal Surgical Hx: No Pertinent History Female Surgical History: Other Other Surgical History: D&C, dental extractions, EGD - Social History Smoking Status: Former smoker Exposure to second hand smoke: No Alcohol: None Drug Use: none Physical Exam - General General Appearance: mild distress, alert, obese - Neuro Neurologic: Epicritic and protopathic - Vascular Peripheral Pulses: Posterior tibialis: 2+, Dorsalis-Pedis: 2+ Capillary Refill Time: < 3 seconds Hair Growth: Symmetrical and Bilateral Varicosities: Positive Edema: Pitting Edema Degree: 2+ Skin: Supple, not atrophic Skin Temperature: Warm to touch - Muscular Muscle Strength: 5/5 on all 4 quadrants - Narrative Narrative Physical Exam: Podiatry Physical Exam Results - Labs Lab/Micro Results: Lab Results-Last 24 Hours 01/28/22 01/31/22 01/31/22 Range/Units 11:28 07:38 10:53 POC Glucometer 85 (74 to 106) mg/dL Troponin I < 0.012 (0.000-0.034) ng/mL Stl C. cayetanensis PCR Not Detected (Not Detected) Stool Rotavirus (PCR) Not Detected (Not Detected) Stl Adenov F 40/41 PCR Not Detected (Not Detected) Stool Astrovirus (PCR) Not Detected (Not Detected) Stool Campylobacter PCR Not Detected (Not Detected) C. difficile (FRANCY) Not Detected (Not Detected) Stool Cryptosporidium PCR Not Detected (Not Detected) Stl E.coli Shiga Tox PCR Not Detected (Not Detected) St Sh/Enteroin Ecoli PCR Not Detected (Not Detected) Stool E coli O157 PCR Not applicable (Not Detected) Stl Enterotoxigenic E PCR Not Detected (Not Detected) Stool EPEC (PCR) Not Detected (Not Detected) Stl E. histolytica PCR Not Detected (Not Detected) Stool Giardia Lamblia PCR Not Detected (Not Detected) Stool Salmonella PCR Not Detected (Not Detected) Stool Sapovirus (PCR) Not Detected (Not Detected) Stl P. shigelloides PCR Not Detected (Not Detected) St Y.enterocolitica PCR Not Detected (Not Detected) Stool Vibrio (PCR) Not Detected (Not Detected) Stl Vibrio cholerae PCR Not Detected (Not Detected) Stl Enteroaggr Ecoli PCR Not Detected (Not Detected) Stl Norovirus GI/GII PCR Not Detected (Not Detected) Microbiology 01/27/22 03:07 Wound Culture - Final Abdomen - Right Upper Quadrant ORGANISMS ISOLATED ARE CONSISTENT WITH NORMAL SKIN ЕКАТЕРИНА HEAVY GROWTH, NO PREDOMINANT ORGANISM 01/27/22 12:00 Urine Culture - Final Urine, Void NO GROWTH 01/27/22 00:21 Urine Culture - Final Urine, Void Escherichia Coli - Radiology Impressions Radiology Exams & Impressions: Radiology Procedures Category Date Time Status GALLBLADDER [US] Routine Exams 01/30/22 08:00 Completed Portable Chest [CHEST 1 VIEW (PORTABLE)] Stat Exams 01/31/22 10:33 Completed Assessment/Plan (1) Lymphedema of both lower extremities Status: Acute Assessment & Plan: Initial patient examination evaluation Venous insufficiency noted to the bilateral lower extremity with brawny edema. Some areas are lymphedema due to their nonpitting nature and induration of the soft tissue. Venous Dopplers negative to the right lower extremity however patient had significant amount of pain with procedure and remainder of the procedure was aborted. Unna boot applied to the bilateral lower extremity Present to office within 1 week of discharge Code(s): I89.0 - LYMPHEDEMA, NOT ELSEWHERE CLASSIFIED (2) Venous insufficiency (chronic) (peripheral) Status: Acute (3) Localized edema due to fluid overload Status: Acute Code(s): E87.70 - FLUID OVERLOAD, UNSPECIFIED
== END 2022-01-31 15:02 | disposition home health service (06) | DRG 392 ==
LOC: ED 21:22 → MED SURG 01-27 01:35 → OBSVTOIN 01-27 13:47
PROVIDERS: ADMIT Family Medicine; ATTEND Family Medicine
DX: R10.33 Periumbilical pain (principal); R10.84 Generalized abdominal pain; N39.0 Urinary tract infection, site not specified; L03.116 Cellulitis of left lower limb; L03.115 Cellulitis of right lower limb; E11.65 Type 2 diabetes mellitus with hyperglycemia; R11.2 Nausea with vomiting, unspecified; I87.2 Venous insufficiency (chronic) (peripheral); I11.0 Hypertensive heart disease with heart failure; I10 Essential (primary) hypertension; I50.9 Heart failure, unspecified; M79.672 Pain in left foot; M79.671 Pain in right foot; I89.0 Lymphedema, not elsewhere classified; E87.70 Fluid overload, unspecified; K42.9 Umbilical hernia without obstruction or gangrene; R12 Heartburn; R53.1 Weakness; Z79.899 Other long term (current) drug therapy; Z20.828 Contact with and (suspected) exposure to other viral communicable diseases
CPT/HCPCS: 0241U; 29580; 36415; 71045; 74176; 76705; 80053; 81015; 82150; 82947; 83036; 83690; 83880; 84134; 84484; 85025; 87070; 87077; 87086; 87186; 87493; 87507; 93970; 96374; 96375; 96376; 97161; 99222; 99285; J0696; J1650; J2405; J3010; A9270-GY

== ENCOUNTER 2022-03-08 05:54 | Day surgery (SDC) | payer MEDICARE, OTHER ==
--- NOTE | 2022-03-07 13:04 | HP ---
DATE OF SURGERY: 03/08/2022 HISTORY OF PRESENT ILLNESS: The patient is a 71-year-old female who presents with cholelithiasis. It looks like the patient has had some bad gallbladder attacks this past month. She now also has a large umbilical hernia she is complaining about. It appears that her cholelithiasis is giving her more problems at this time and she would like to proceed with surgical intervention on that. PAST MEDICAL HISTORY: Hypertension, heartburn, chronic obstructive pulmonary disease. PAST SURGICAL HISTORY: D&C. ALLERGIES: SULFA. ERYTHROMYCIN BASE. LATEX. MEDICATIONS: Per chart. FAMILY HISTORY: None reported. SOCIAL HISTORY: Former smoker, denies alcohol. REVIEW OF SYSTEMS: CONSTITUTIONAL: Denies fever or chills. CHEST: Denies shortness of breath. CVS: Denies chest pain. ABDOMEN: Reports right upper quadrant pain. PHYSICAL EXAMINATION: GENERAL: No acute distress. CHEST: Nonlabored. No shortness of breath. CVS: Regular rate and rhythm. ABDOMEN: Soft, umbilical hernia noted. IMPRESSION: Symptomatic cholelithiasis. PLAN: Laparoscopic cholecystectomy with Dr. Charanjit Hernandez. As dictated by Jazlyn Winter NP.
[2022-03-08] MEDS ORDERED: Lactated Ringers 1,000 ML IV SCH (06:30)
[2022-03-08 06:33] VITALS: BP 146/76; PULSE 114; O2SAT 98
[2022-03-08] MEDS ORDERED: Sensorcaine 0.25% 10 ML ONE (06:34)
== END 2022-03-08 08:34 | disposition home or self-care (01) ==
LOC: SDC 05:54
PROVIDERS: ATTEND Surgery
DX: Z53.8 Procedure and treatment not carried out for other reasons (principal); L03.116 Cellulitis of left lower limb; L03.115 Cellulitis of right lower limb

== ENCOUNTER 2023-07-04 18:05 | Inpatient (IN) | payer MEDICARE, OTHER ==
[2023-07-04 19:01] LABS: Absolute Neutrophil Ct (ANC) 10.81 x10^3/uL (1.4-6.9); BASOPHIL % 0.2 % (0.0-0.4); Basophil (Absolute #) 0.03 x10^3/uL (0-0.4); Eosinophil % 2.5 % (0.00-5.0); Eosinophil (Absolute #) 0.33 x10^3/uL (0-0.5); Hematocrit 35.5 % (35-47); Hemoglobin 10.7 g/dL (12.0-16.0); IMMATURE GRAN % 0.7 % (0.00-0.4); Lymphocyte (Absolute #) 1.55 x10^3/uL (1.0-4.6); Lymphocytes % 11.5 % (24.0-44.0); Mean Cell Volume 83.1 fL (78-100); Mean Corpuscular Hemoglobin 25.1 pg (26-32); Mean Corpuscular Hgb Concent. 30.1 g/dL (32-36); Monocyte (Absolute #) 0.63 x10^3/uL (0.0-1.3); Monocytes % 4.7 % (0.0-12.0); Neutrophil % 80.4 % (36.0-66.0); Platelet Count 214 x10^3/uL (150-450); Red Blood Count 4.27 x10^6/uL (4.1-5.4); Red Cell Distribution Width 13.4 % (11.5-14.0); White Blood Count 13.5 x10^3/uL (4.0-10.5)
[2023-07-04 19:15] LABS: ALBUMIN 3.8 g/dL (3.5-5.0); ANION GAP 12.8 MEQ/L (5-15); BILIRUBIN,TOTAL 0.5 mg/dL (0.2-1.3); Calcium 9.3 mg/dL (8.4-10.2); Creatinine 1 1.36 mg/dL (0.52-1.04); EST GLOMERULAR FILTRATION RATE 41.4 ML/MIN; Potassium 5.1 mmol/L (3.5-5.1); Total Protein 6.9 g/dL (6.3-8.2)
--- NOTE | 2023-07-04 20:19 | ERPHSYRPT ---
- History of Present Illness Source: patient Patient Subjective Stated Complaint: pt here for lower leg pain.pt was dx with celullits of lower legs and placed on keflex, she does not think it is getting better, Triage Nursing Assessment: pt alert, arrived per ambluance, resp easy, skin w/d/p. has swelling and redness to bilat lower legs, abd soft. Physician History: 7:15 PM 73 years old female with past medical history of bilateral leg edema, Lymphedema, congestive heart failure, COPD, type 2 diabetes and frequent UTIs. The patient is presenting to the emergency room complaining of worsening swelling and redness to both of her lower extremities. As mentioned above the patient does have history of bilateral leg lymphedema and swelling. It seemed that she was treated with oral Keflex by her primary care but the redness and swelling is not getting any better. The patient is also complaining of burning micturition and nausea but no vomiting. She had a normal bowel movement today. No fever but she has the chills. She is denying any coughing no chest pain or shortness of breath. She has no history of DVTs or PEs. Allergies/Adverse Reactions: latex Allergy (Intermediate, Verified 07/04/23 18:07) Blisters erythromycin base Adverse Reaction (Severe, Verified 07/04/23 18:07) Nausea Sulfa (Sulfonamide Antibiotics) Adverse Reaction (Severe, Verified 07/04/23 18:07) Nausea Home Medications: Duloxetine HCl 30 mg [Cymbalta 30 MG Capsule] 60 mg PO DAILY 06/22/15 [History] Lisinopril 20 mg [Zestril 20 MG] 20 mg PO DAILY 06/22/15 [History] Magnesium Oxide 400 mg [Mag-Ox 400] 400 mg PO DAILY 06/22/15 [History] Potassium Chloride Tab* [Klor Con] 10 meq PO DAILY 07/17/16 [History] Ergocalciferol (Vitamin D2) [Vitamin D2] 50,000 unit PO Q7D 01/26/22 [History] Furosemide 40 mg PO DAILY 01/26/22 [History] Oxycodone / APAP 10/325 mg [Oxycodone-Acetaminophen 10-325] 1 tab QID PRN 01/27/22 [History] Clonidine HCl 0.1 mg [Clonidine 0.1 mg Tablet] 0.1 mg PO TID 02/19/22 [ History] Omeprazole 20 mg PO DAILY PRN PRN 02/19/22 [History] Hx Tetanus, Diphtheria Vaccination/Date Given: Yes Hx Influenza Vaccination/Date Given: Yes Hx Pneumococcal Vaccination/Date Given: Yes Immunizations Up to Date: Yes Travel Risk - International Travel Have you traveled outside of the country in past 3 weeks: No - Coronavirus Screening Are you exhibiting any of the following symptoms?: No Close contact with a COVID-19 positive Pt in past 14-21 Days: No - Vaccine Status Have you recieved a Covid-19 vaccination: No - Review of Systems Constitutional: Chills, No Fever Eyes: No Symptoms Ears, Nose, & Throat: No Symptoms Respiratory: No Cough, No Dyspnea Cardiac: Other (Chronic bilateral lower leg edema/lymphedema), No Chest Pain, No Edema, No Syncope Abdominal/Gastrointestinal: No Abdominal Pain, No Nausea, No Vomiting, No Diarrhea Genitourinary Symptoms: Dysuria, Frequency, Incontinence Musculoskeletal: No Back Pain, No Neck Pain Skin: Cellulitis, Skin Lesions, No Rash Neurological: No Dizziness, No Focal Weakness, No Sensory Changes Psychological: No Symptoms Endocrine: No Symptoms All Other Systems: Reviewed and Negative - Past Medical History Pertinent Past Medical History: Yes Neurological History: No Pertinent History, Other ENT History: No Pertinent History Cardiac History: Congestive Heart Failure, High Cholesterol, Hypertension Respiratory History: COPD Endocrine Medical History: No Pertinent History Musculoskeletal History: Fibromyalgia, Osteoarthritis GI Medical History: GERD, Hernia History: No Pertinent History Psycho-Social History: Anxiety, Depression Female Reproductive Disorders: Fibroids, Other Other Medical History: depression. cellulitis in bilateral lower legs - Past Surgical History Past Surgical History: Yes Neuro Surgical History: No Pertinent History Cardiac: No Pertinent History Respiratory: No Pertinent History Gastrointestinal: No Pertinent History Genitourinary: No Pertinent History Musculoskeletal: No Pertinent History Female Surgical History: Other Other Surgical History: D&C, dental extractions, EGD - Social History Smoking Status: Former smoker Exposure to second hand smoke: No Drug Use: none Patient Lives Alone: No - Nursing Vital Signs Nursing Vital Signs: Initial Vital Signs Temperature 98.5 F 07/04/23 18:09 Pulse Rate 115 H 07/04/23 18:09 Respiratory Rate 16 07/04/23 18:09 Blood Pressure 123/52 07/04/23 18:09 O2 Sat by Pulse Oximetry 100 07/04/23 18:09 Pain Scale Pain Intensity 6 - Physical Exam General Appearance: alert, obese Eyes, Ears, Nose, Throat Exam: moist mucous membranes Neck Exam: non-tender, supple Cardiovascular/Respiratory Exam: chest non-tender, normal breath sounds, regular rate/rhythm, no respiratory distress Gastrointestinal/Abdominal Exam: non-tender, hernia Back Exam: normal inspection, No vertebral tenderness Legs Exam: bilateral leg: soft tissue tenderness, swelling, other (Warmth and erythema to both ankles and lower shins with tenderness.) Ankle Exam: bilateral ankle: soft tissue tenderness, swelling Foot Exam: bilateral foot: soft tissue tenderness, swelling Neuro/Tendon Exam: normal sensation Mental Status Exam: alert, oriented x 3, cooperative Skin Exam: normal color, warm, dry SpO2: 99 - Course Nursing assessment & vital signs reviewed: Yes Ordered Tests: Active Orders 24 hr Category Date Time Status IV Insertion STAT Care 07/04/23 18:27 Active BLOOD CULTURE Stat Lab 07/04/23 Received CBC W DIFF Stat Lab 07/04/23 18:45 Completed CMP Stat Lab 07/04/23 18:45 Completed CULTURE,URINE Stat Lab 07/04/23 20:39 Received Lactic Acid Stat Lab 07/04/23 18:45 Completed UA W/RFX UR CULTURE Stat Lab 07/04/23 20:39 Completed Transfer Order Routine Transfer 07/04/23 Ordered Medication Summary Discontinued Medications Generic Name Dose Route Start Last Admin Trade Name Freq PRN Reason Stop Dose Admin Enoxaparin Sodium 150 mg 07/04/23 21:42 07/04/23 21:57 Enoxaparin Sodium 150 Mg/Ml Syringe SQ 07/04/23 21:43 150 mg 1XONLY ONE Administration Piperacillin Sod/Tazobactam 100 mls @ 200 mls/hr 07/04/23 20:24 07/04/23 20:36 Sod 3.375 gm/ Sodium Chloride IV 07/04/23 20:53 200 mls/hr STAT ONE Administration Sodium Chloride Confirm 07/04/23 20:31 Sodium Chloride 100ml Mini-Bag Plus Administered 07/04/23 20:32 Dose 100 mls @ ud IV .STK-MED ONE Oxycodone/Acetaminophen 2 tab 07/04/23 20:21 07/04/23 20:35 Oxycodone Hcl/Apap 5 Mg/325 Mg Tablet PO 07/04/23 20:22 2 tab STAT STA Administration Oxycodone/Acetaminophen Confirm 07/04/23 20:31 Oxycodone Hcl/Apap 5 Mg/325 Mg Tablet Administered 07/04/23 20:32 Dose 2 tab .ROUTE .STK-MED ONE Piperacillin Sod/Tazobactam Sod Confirm 07/04/23 20:31 Piperacillin/Tazobactam Sodium 3.375 Gm Vial Administered 07/04/23 20:32 Dose 3.375 gm IV .STK-MED ONE Lab/Rad Data: Laboratory Result Diagrams 07/04/23 18:45 07/04/23 18:45 Laboratory Results 07/04/23 07/04/23 07/04/23 Range/Units 20:39 18:45 18:45 WBC (4.0-10.5) x10^3/uL RBC (4.1-5.4) x10^6/uL Hgb (12.0-16.0) g/dL Hct (35-47) % MCV (78-100) fL MCH (26-32) pg MCHC (32-36) g/dL RDW (11.5-14.0) % Plt Count (150-450) x10^3/uL MPV (7.5-11.0) fL Gran % (36.0-66.0) % Immature Gran % (Auto) (0.00-0.4) % Nucleat RBC Rel Count (0.00-0.1) % Eos # (Auto) (0-0.5) x10^3/uL Immature Gran # (Auto) (0.00-0.03) x10^3u/L Absolute Lymphs (auto) (1.0-4.6) x10^3/uL Absolute Monos (auto) (0.0-1.3) x10^3/uL Absolute Nucleated RBC (0.00-0.01) x10^3u/L Lymphocytes % (24.0-44.0) % Monocytes % (0.0-12.0) % Eosinophils % (0.00-5.0) % Basophils % (0.0-0.4) % Absolute Granulocytes (1.4-6.9) x10^3/uL Basophils # (0-0.4) x10^3/uL Sodium 133 L (137-145) mmol/L Potassium 5.1 (3.5-5.1) mmol/L Chloride 100 (98-107) mmol/L Carbon Dioxide 25 (22-30) mmol/L Anion Gap 12.8 (5-15) MEQ/L BUN 33 H (7-17) mg/dL Creatinine 1.36 H (0.52-1.04) mg/dL Estimated GFR 41.4 ML/MIN Glucose 192 H (74-106) mg/dL Lactic Acid 1.6 (0.4-2.0) Calcium 9.3 (8.4-10.2) mg/dL Total Bilirubin 0.50 (0.2-1.3) mg/dL AST 31 (14-36) U/L ALT 13 (0-35) U/L Alkaline Phosphatase 89 (38-126) U/L Serum Total Protein 6.9 (6.3-8.2) g/dL Albumin 3.8 (3.5-5.0) g/dL Urine Color Yellow (Yellow) Urine Appearance Clear (Clear) Urine pH 5.5 (4.6-8.0) Ur Specific [place] <=1.005 (1.005-1.030) Urine Protein Negative (Negative) Urine Glucose (UA) Negative (Negative) mg/dL Urine Ketones Negative (Negative) Urine Blood Trace (Negative) Urine Nitrite Negative (Negative) Urine Bilirubin Negative (Negative) Urine Urobilinogen 0.2 (0.2) mg/dL Ur Leukocyte Esterase Large A (Negative) U Hyaline Cast (Auto) NONE SEEN (0-2) /LPF Urine Microscopic RBC 0-2 (0-5) /HPF Urine Microscopic WBC 11-20 A (0-5) /HPF Ur Epithelial Cells None Seen (None Seen) /HPF Urine Bacteria None Seen (None Seen) /HPF Urine Culture Reflexed YES (NO) 07/04/23 Range/Units 18:45 WBC 13.5 H (4.0-10.5) x10^3/uL RBC 4.27 (4.1-5.4) x10^6/uL Hgb 10.7 L (12.0-16.0) g/dL Hct 35.5 (35-47) % MCV 83.1 (78-100) fL MCH 25.1 L (26-32) pg MCHC 30.1 L (32-36) g/dL RDW 13.4 (11.5-14.0) % Plt Count 214 (150-450) x10^3/uL MPV 11.0 (7.5-11.0) fL Gran % 80.4 H (36.0-66.0) % Immature Gran % (Auto) 0.7 H (0.00-0.4) % Nucleat RBC Rel Count 0.0 (0.00-0.1) % Eos # (Auto) 0.33 (0-0.5) x10^3/uL Immature Gran # (Auto) 0.10 H (0.00-0.03) x10^3u/L Absolute Lymphs (auto) 1.55 (1.0-4.6) x10^3/uL Absolute Monos (auto) 0.63 (0.0-1.3) x10^3/uL Absolute Nucleated RBC 0.00 (0.00-0.01) x10^3u/L Lymphocytes % 11.5 L (24.0-44.0) % Monocytes % 4.7 (0.0-12.0) % Eosinophils % 2.5 (0.00-5.0) % Basophils % 0.2 (0.0-0.4) % Absolute Granulocytes 10.81 H (1.4-6.9) x10^3/uL Basophils # 0.03 (0-0.4) x10^3/uL Sodium (137-145) mmol/L Potassium (3.5-5.1) mmol/L Chloride (98-107) mmol/L Carbon Dioxide (22-30) mmol/L Anion Gap (5-15) MEQ/L BUN (7-17) mg/dL Creatinine (0.52-1.04) mg/dL Estimated GFR ML/MIN Glucose (74-106) mg/dL Lactic Acid (0.4-2.0) Calcium (8.4-10.2) mg/dL Total Bilirubin (0.2-1.3) mg/dL AST (14-36) U/L ALT (0-35) U/L Alkaline Phosphatase (38-126) U/L Serum Total Protein (6.3-8.2) g/dL Albumin (3.5-5.0) g/dL Urine Color (Yellow) Urine Appearance (Clear) Urine pH (4.6-8.0) Ur Specific [place] (1.005-1.030) Urine Protein (Negative) Urine Glucose (UA) (Negative) mg/dL Urine Ketones (Negative) Urine Blood (Negative) Urine Nitrite (Negative) Urine Bilirubin (Negative) Urine Urobilinogen (0.2) mg/dL Ur Leukocyte Esterase (Negative) U Hyaline Cast (Auto) (0-2) /LPF Urine Microscopic RBC (0-5) /HPF Urine Microscopic WBC (0-5) /HPF Ur Epithelial Cells (None Seen) /HPF Urine Bacteria (None Seen) /HPF Urine Culture Reflexed (NO) - Progress Progress: unchanged Progress Note: 07/04/23 19:15 7:15 PM 73 years old female with past medical history of bilateral leg edema, congestive heart failure, COPD, type 2 diabetes and frequent UTIs. The patient is presenting to the emergency room complaining of worsening swelling and redness to both of her lower extremities. As mentioned above the patient does have history of bilateral leg lymphedema and swelling. It seemed that she was treated with oral Keflex by her primary care but the redness and swelling are not getting any better. The patient is also complaining of burning micturition and nausea but no vomiting. She had a normal bowel movement today. No fever but she has the chills. She is denying any coughing no chest pain or shortness of breath. She has no history of DVTs or PEs. Emergency room course and medical decision making Will check CBC, BMP, urinalysis, blood cultures and lactic acid. The patient is septic will admit for IV antibiotics. 07/04/23 The patient's workup demonstrated elevated White count at 13,000 with left shift, hemoglobin 10.7. BUN 33, creatinine 1.36. Lactic acid at 1.6. The patient will be given Zosyn 3.375 g IV after obtaining blood cultures. Will plan to admit the patient to the hospital for cellulitis, UTI 07/04/23 21:38 , , The patient's the urine analysis revealed large leukocyte Estrace, 30 white blood cells. The patient received Zosyn dose 3.375 g IV Will plan to admit the patient to the hospital as a case of Bilateral leg cellulitis UTI. The case is discussed with the hospitalist Dr. Sheffield and the patient will be admitted under his service. The patient will receive Lovenox 1 mg/kg subcu. Plan for a venous Doppler ultrasound of both lower extremities tomorrow. Medical Desision Making - Independent Historian Additional History obtained from: Child - Discussion of managment Care discussed with:: hospitalist Agreed on:: Treatment plan, decision to admit Will see patient: in hospital - Departure Departure Disposition: In-patient Admission Clinical Impression: Cellulitis and abscess of left leg, Cellulitis of right leg, UTI (urinary tract infection), Lymphedema associated with obesity Condition: Stable Critical Care Time: No Referrals: YOKO SANCHEZ [Primary Care Provider] - Follow up/PCP as directed
[2023-07-04] MEDS ORDERED: PERCOCET TABLET 5/325MG PO STA (20:21)
[2023-07-04] MEDS ORDERED: PIPERACILLIN/TAZOBACTAM 3.375 GM in Sodium Chloride 100ML MINI-BAG PLUS 100 ML IV ONE (20:24)
[2023-07-04] MEDS ORDERED: Sodium Chloride 100ML MINI-BAG PLUS 100 ML IV ONE (20:31)
[2023-07-04] MEDS ORDERED: PIPERACILLIN/TAZOBACTAM IV ONE (20:31)
[2023-07-04] MEDS ORDERED: PERCOCET TABLET 5/325MG ONE (20:31)
[2023-07-04 20:59] LABS: Appearance Clear (Clear); Bacteria None Seen /HPF (None Seen); Bilirubin Negative (Negative); Blood Trace (Negative); Epithelial Cells None Seen /HPF (None Seen); Glucose, Urine Negative (Negative); Hyaline Casts NONE SEEN /LPF (0-2); Ketones Negative (Negative); Leukocyte Esterase Large (Negative); Nitrite Negative (Negative); Ph 5.5 (4.6-8.0); Protein,Urine Dip Negative (Negative); RBC 0-2 /HPF (0-5); Specific Gravity <=1.005 (1.005-1.030); Urobilinogen 0.2 mg/dL (0.2)
[2023-07-04 21:05] LABS: ADD URINE CULTURE? YES (NO)
[2023-07-04] MEDS ORDERED: ENOXAPARIN SODIUM SQ ONE (21:42)
--- NOTE | 2023-07-05 01:57 | PCM.HP ---
History of Present Illness - Chief Complaint Chief Complaint: Cellulitis Date: 07/05/23 History of Present Illness: Ms. Cheng is a 73 year old female with a past medical history significant for hypertension, diabetes, hyperlipidemia, lymphedema, CHF and frequent UTIs who presents to the hospital with complaints of pain and swelling in her lower extremities. No fever or chills. No chest pain or shortness of breath. No nausea, vomiting or diarrhea. She does have some pain in her legs. Initial labs were notable for an elevated WBC of 13k and elevated creatinine of 1.36. She has been taking her diuretics without any issues and denies increasing her sodium intake or eating out regularly. No NSAIDs or contrast exposure. She has been recommended for admission. - Review of Systems Constitutional: No Fever, No Chills Eyes: No Vision Changes Respiratory: No Cough, No Orthopnea, No Short Of Breath Cardiac: No Chest Pain, No Edema Abdominal/Gastrointestinal: No Abdominal Pain, No Nausea, No Vomiting, No Diarrhea Genitourinary Symptoms: No Frequency, No Hematuria Musculoskeletal: No Back Pain, No Neck Pain Skin: Cellulitis Neurological: No Focal Weakness, No Parasthesia Psychological: No Alcohol Abuse, No Drug Abuse Endocrine: No Polyuria, No Polydipsia Hematologic/Lymphatic: No Anemia Medications & Allergies Home Medications: Home Medication List Duloxetine HCl 30 mg [Cymbalta 30 MG Capsule] 60 mg PO DAILY 06/22/15 [History Confirmed 02/19/22] Lisinopril 20 mg [Zestril 20 MG] 20 mg PO DAILY 06/22/15 [History Confirmed 02/19/22] Magnesium Oxide 400 mg [Mag-Ox 400] 400 mg PO DAILY 06/22/15 [History Confirmed 02/19/22] Potassium Chloride Tab* [Klor Con] 10 meq PO DAILY 07/17/16 [History Confirmed 02/19/22] Ergocalciferol (Vitamin D2) [Vitamin D2] 50,000 unit PO Q7D 01/26/22 [History Confirmed 02/19/22] Furosemide 40 mg PO DAILY 01/26/22 [History Confirmed 03/08/22] Oxycodone / APAP 10/325 mg [Oxycodone-Acetaminophen 10-325] 1 tab QID PRN 01/27/22 [History Confirmed 02/19/22] Clonidine HCl 0.1 mg [Clonidine 0.1 mg Tablet] 0.1 mg PO TID 02/19/22 [History Confirmed 02/19/22] Omeprazole 20 mg PO DAILY PRN PRN 02/19/22 [History Confirmed 02/19/22] Allergies/Adverse Reactions: Allergies Allergy/AdvReac Type Severity Reaction Status Date / Time latex Allergy Intermediate Blisters Verified 07/04/23 18:07 erythromycin base AdvReac Severe Nausea Verified 07/04/23 18:07 Sulfa (Sulfonamide AdvReac Severe Nausea Verified 07/04/23 18:07 Antibiotics) - Past Medical History Past Medical History: Yes Neurological History: No Pertinent History, Other ENT History: No Pertinent History Cardiac History: Congestive Heart Failure, High Cholesterol, Hypertension Respiratory History: COPD Endocrine Medical History: No Pertinent History Musculoskelatal History: Fibromyalgia, Osteoarthritis GI Medical History: GERD, Hernia History: No Pertinent History Pyscho-Social History: Anxiety, Depression Reproductive Disorders: Fibroids, Other Comment: depression. cellulitis in bilateral lower legs - Female History Are you now?: No - Past Surgical History Past Surgical History: Yes Neuro Surgical History: No Pertinent History Cardiac History: No Pertinent History Respiratory Surgery: No Pertinent History GI Surgical History: No Pertinent History Genitourinary Surgical Hx: No Pertinent History Musculskeletal Surgical Hx: No Pertinent History Female Surgical History: Other Other Surgical History: D&C, dental extractions, EGD - Social History Smoking Status: Former smoker Exposure to second hand smoke: No Alcohol: None Drug Use: none - Physical Exam Vital Signs: Vital Signs - 24 hr Temp Pulse Resp BP BP Pulse Ox 07/05/23 00:00 97.7 F 115 H 20 102/97 97 07/04/23 23:38 97.7 F 114 H 17 96/49 95 07/04/23 22:21 99 07/04/23 20:01 115 H 10 L 148/67 99 07/04/23 19:40 115 H 18 125/77 97 07/04/23 19:01 114 H 13 125/77 97 07/04/23 18:55 114 H 15 113/62 100 07/04/23 18:30 112 H 18 113/62 99 07/04/23 18:09 98.5 F 115 H 16 123/52 100 General Appearance: no apparent distress, alert Neurologic Exam: alert, oriented x 3 Ears, Nose, Throat Exam: moist mucous membranes Neck Exam: supple Respiratory Exam: lungs clear, No respiratory distress Cardiovascular Exam: regular rate/rhythm Gastrointestinal/Abdomen Exam: soft Extremity Exam: pedal edema Skin Exam: rash Lymphatic Exam: No adenopathy Results - Labs Lab/Micro Results: Lab Results-Last 24 Hours 07/04/23 07/04/23 07/04/23 Range/Units 18:45 18:45 18:45 WBC 13.5 H (4.0-10.5) x10^3/uL RBC 4.27 (4.1-5.4) x10^6/uL Hgb 10.7 L (12.0-16.0) g/dL Hct 35.5 (35-47) % MCV 83.1 (78-100) fL MCH 25.1 L (26-32) pg MCHC 30.1 L (32-36) g/dL RDW 13.4 (11.5-14.0) % Plt Count 214 (150-450) x10^3/uL MPV 11.0 (7.5-11.0) fL Gran % 80.4 H (36.0-66.0) % Immature Gran % (Auto) 0.7 H (0.00-0.4) % Nucleat RBC Rel Count 0.0 (0.00-0.1) % Eos # (Auto) 0.33 (0-0.5) x10^3/uL Immature Gran # (Auto) 0.10 H (0.00-0.03) x10^3u/L Absolute Lymphs (auto) 1.55 (1.0-4.6) x10^3/uL Absolute Monos (auto) 0.63 (0.0-1.3) x10^3/uL Absolute Nucleated RBC 0.00 (0.00-0.01) x10^3u/L Lymphocytes % 11.5 L (24.0-44.0) % Monocytes % 4.7 (0.0-12.0) % Eosinophils % 2.5 (0.00-5.0) % Basophils % 0.2 (0.0-0.4) % Absolute Granulocytes 10.81 H (1.4-6.9) x10^3/uL Basophils # 0.03 (0-0.4) x10^3/uL Sodium 133 L (137-145) mmol/L Potassium 5.1 (3.5-5.1) mmol/L Chloride 100 (98-107) mmol/L Carbon Dioxide 25 (22-30) mmol/L Anion Gap 12.8 (5-15) MEQ/L BUN 33 H (7-17) mg/dL Creatinine 1.36 H (0.52-1.04) mg/dL Estimated GFR 41.4 ML/MIN Glucose 192 H (74-106) mg/dL Lactic Acid 1.6 (0.4-2.0) Calcium 9.3 (8.4-10.2) mg/dL Total Bilirubin 0.50 (0.2-1.3) mg/dL AST 31 (14-36) U/L ALT 13 (0-35) U/L Alkaline Phosphatase 89 (38-126) U/L Serum Total Protein 6.9 (6.3-8.2) g/dL Albumin 3.8 (3.5-5.0) g/dL Urine Color (Yellow) Urine Appearance (Clear) Urine pH (4.6-8.0) Ur Specific [place] (1.005-1.030) Urine Protein (Negative) Urine Glucose (UA) (Negative) mg/dL Urine Ketones (Negative) Urine Blood (Negative) Urine Nitrite (Negative) Urine Bilirubin (Negative) Urine Urobilinogen (0.2) mg/dL Ur Leukocyte Esterase (Negative) U Hyaline Cast (Auto) (0-2) /LPF Urine Microscopic RBC (0-5) /HPF Urine Microscopic WBC (0-5) /HPF Ur Epithelial Cells (None Seen) /HPF Urine Bacteria (None Seen) /HPF Urine Culture Reflexed (NO) 07/04/23 Range/Units 20:39 WBC (4.0-10.5) x10^3/uL RBC (4.1-5.4) x10^6/uL Hgb (12.0-16.0) g/dL Hct (35-47) % MCV (78-100) fL MCH (26-32) pg MCHC (32-36) g/dL RDW (11.5-14.0) % Plt Count (150-450) x10^3/uL MPV (7.5-11.0) fL Gran % (36.0-66.0) % Immature Gran % (Auto) (0.00-0.4) % Nucleat RBC Rel Count (0.00-0.1) % Eos # (Auto) (0-0.5) x10^3/uL Immature Gran # (Auto) (0.00-0.03) x10^3u/L Absolute Lymphs (auto) (1.0-4.6) x10^3/uL Absolute Monos (auto) (0.0-1.3) x10^3/uL Absolute Nucleated RBC (0.00-0.01) x10^3u/L Lymphocytes % (24.0-44.0) % Monocytes % (0.0-12.0) % Eosinophils % (0.00-5.0) % Basophils % (0.0-0.4) % Absolute Granulocytes (1.4-6.9) x10^3/uL Basophils # (0-0.4) x10^3/uL Sodium (137-145) mmol/L Potassium (3.5-5.1) mmol/L Chloride (98-107) mmol/L Carbon Dioxide (22-30) mmol/L Anion Gap (5-15) MEQ/L BUN (7-17) mg/dL Creatinine (0.52-1.04) mg/dL Estimated GFR ML/MIN Glucose (74-106) mg/dL Lactic Acid (0.4-2.0) Calcium (8.4-10.2) mg/dL Total Bilirubin (0.2-1.3) mg/dL AST (14-36) U/L ALT (0-35) U/L Alkaline Phosphatase (38-126) U/L Serum Total Protein (6.3-8.2) g/dL Albumin (3.5-5.0) g/dL Urine Color Yellow (Yellow) Urine Appearance Clear (Clear) Urine pH 5.5 (4.6-8.0) Ur Specific [place] <=1.005 (1.005-1.030) Urine Protein Negative (Negative) Urine Glucose (UA) Negative (Negative) mg/dL Urine Ketones Negative (Negative) Urine Blood Trace (Negative) Urine Nitrite Negative (Negative) Urine Bilirubin Negative (Negative) Urine Urobilinogen 0.2 (0.2) mg/dL Ur Leukocyte Esterase Large A (Negative) U Hyaline Cast (Auto) NONE SEEN (0-2) /LPF Urine Microscopic RBC 0-2 (0-5) /HPF Urine Microscopic WBC 11-20 A (0-5) /HPF Ur Epithelial Cells None Seen (None Seen) /HPF Urine Bacteria None Seen (None Seen) /HPF Urine Culture Reflexed YES (NO) Assessment/Plan (1) UTI (urinary tract infection) Current Visit: Yes Status: Acute Assessment & Plan: Recent history of recurrent UTIs, not sure she has an active infection currently 1. Will check urine culture 2. Encourage PO intake 3. Monitor for signs/symptoms of UTI Code(s): N39.0 - URINARY TRACT INFECTION, SITE NOT SPECIFIED (2) Cellulitis of lower extremity Current Visit: No Status: Acute Qualifiers: Laterality: unspecified laterality Qualified Code(s): L03.119 - Cellulitis of unspecified part of limb Assessment & Plan: Bilateral cellulitis with associated leg pain 1. Will start antibiotics 2. Continue diuretics 3. Will check venous doppler LEs to rule out DVT 4. PT eval (3) Acute kidney injury Current Visit: Yes Status: Acute Assessment & Plan: BUN 33 Cr 1.36 likely from cardiorenal syndrome 1. Encourage PO intake 2. Continue diuretics 3. Hold TERESA 4. Avoid NSAIDs/IV contrast 5. Follow I/Os 6. Watch electrolytes, creatinine closely Code(s): N17.9 - ACUTE KIDNEY FAILURE, UNSPECIFIED (4) Hypertensive chronic kidney disease with stage 1 through stage 4 chronic kidney disease, or unspecified chronic kidney disease Current Visit: Yes Status: Acute Assessment & Plan: Blood pressure controlled on meds 1. Hold TERESA with ARLINE 2. Limit sodium intake 3. Monitor blood pressure readings closely Code(s): I12.9 - HYPERTENSIVE CHRONIC KIDNEY DISEASE W STG 1-4/UNSP CHR KDNY Telemedicine Encounter - Telemedicine Encounter Telemedicine Encounter: The entirety of this encounter was performed via Telemedicine"
[2023-07-05] MEDS ORDERED: Docusate Sodium 100 MG PO PRN (02:01)
[2023-07-05] MEDS ORDERED: TYLENOL 325 MG PO PRN (02:01)
[2023-07-05] MEDS ORDERED: Lasix 40 MG/4 ML IV SCH (02:15)
[2023-07-05] MEDS: OXYCODONE-ACETAMINOPHEN 10-325 PO PRN ×4 (03:18→21:26)
[2023-07-05 04:46] LABS: Hematocrit 36.4 % (35-47); Hemoglobin 10.7 g/dL (12.0-16.0); Mean Cell Volume 84.1 fL (78-100); Mean Corpuscular Hemoglobin 24.7 pg (26-32); Mean Corpuscular Hgb Concent. 29.4 g/dL (32-36); Mean Platelet Volume 11.3 fL (7.5-11.0); Platelet Count 222 x10^3/uL (150-450); Red Blood Count 4.33 x10^6/uL (4.1-5.4); Red Cell Distribution Width 13.6 % (11.5-14.0); White Blood Count 12.8 x10^3/uL (4.0-10.5)
[2023-07-05 05:07] LABS: ANION GAP 11.1 MEQ/L (5-15); Calcium 9.3 mg/dL (8.4-10.2); Creatinine 1 1.41 mg/dL (0.52-1.04); EST GLOMERULAR FILTRATION RATE 39.6 ML/MIN; PREALBUMIN 12.84 mg/dL (17.6-36.0); Potassium 4.5 mmol/L (3.5-5.1)
--- NOTE | 2023-07-05 05:15 | PCM.NOTE ---
Date and Time: 07/05/23 0509 Subjective Assessment: Ms. Cheng is a 73 year old female with a past medical history significant for hypertension, diabetes, hyperlipidemia, lymphedema, CHF and frequent UTIs who presented to ED 07/04/24 with complaints of pain and swelling in her lower extremities. Patient does have history of bilateral leg lymphedema and swelling. She was treated outpatient with oral Keflex by her PCP with no improvement. Septic on presentation with WBC at 13.5, urine analysis revealed large leukocyte Estrace, 30 white blood cells, creat at 1.41 (baseline around 1.2-1.3). Patient admitted with sepsis secondary to UTI/cellulitis, BLE edema, and ARLINE, current treatment with zosyn and lasix. 07/05/23: Met with patient bedside. Endorses burning with urination and back pain. BLE with erythema, 4+ pitting edema, left ext with open wounds/drainage. Will culture. Patient states pain in BLE is 5/10, sharp. Plan to continue zosyn for coverage of UTI/cellulitis, follow cultures. - Review of Systems Constitutional: Weakness Eyes: No Symptoms Ears, Nose, & Throat: No Symptoms Respiratory: Short Of Breath (exertional) Cardiac: No Symptoms Abdominal/Gastrointestinal: No Symptoms Objective Exam General Appearance: no apparent distress Neurologic Exam: alert, oriented x 3, cooperative Skin Exam: normal color Eye Exam: PERRL Ears, Nose, Throat Exam: normal ENT inspection Neck Exam: normal inspection Respiratory Exam: crackles/rales Cardiovascular Exam: regular rate/rhythm, normal heart sounds Gastrointestinal/Abdomen Exam: soft, normal bowel sounds Extremity Exam: inflammation, swelling, other (BLE erythema/ open dime sized wound with weeping to right LE 4+ BLE with 4+ pedal edema) Back Exam: normal inspection Pelvic Exam: deferred OBJECTIVE DATA Vital Signs: Vital Signs - 24 hr Temp Pulse Resp BP BP Pulse Ox 07/05/23 00:00 97.7 F 115 H 20 102/97 97 07/04/23 23:38 97.7 F 114 H 17 96/49 95 07/04/23 22:21 99 07/04/23 20:01 115 H 10 L 148/67 99 07/04/23 19:40 115 H 18 125/77 97 07/04/23 19:01 114 H 13 125/77 97 07/04/23 18:55 114 H 15 113/62 100 07/04/23 18:30 112 H 18 113/62 99 07/04/23 18:09 98.5 F 115 H 16 123/52 100 Pain Assessment - Last Documented Pain Intensity 5 Pain Scale Used 0-10 Pain Scale Intake and Output: Intake & Output 07/02/23 07/03/23 07/04/23 07/05/23 11:59 11:59 11:59 11:59 Weight 143.5 kg Lab Results: Lab Results-Last 24 Hours 07/04/23 07/04/23 07/04/23 Range/Units 18:45 18:45 18:45 WBC 13.5 H (4.0-10.5) x10^3/uL RBC 4.27 (4.1-5.4) x10^6/uL Hgb 10.7 L (12.0-16.0) g/dL Hct 35.5 (35-47) % MCV 83.1 (78-100) fL MCH 25.1 L (26-32) pg MCHC 30.1 L (32-36) g/dL RDW 13.4 (11.5-14.0) % Plt Count 214 (150-450) x10^3/uL MPV 11.0 (7.5-11.0) fL Gran % 80.4 H (36.0-66.0) % Immature Gran % (Auto) 0.7 H (0.00-0.4) % Nucleat RBC Rel Count 0.0 (0.00-0.1) % Eos # (Auto) 0.33 (0-0.5) x10^3/uL Immature Gran # (Auto) 0.10 H (0.00-0.03) x10^3u/L Absolute Lymphs (auto) 1.55 (1.0-4.6) x10^3/uL Absolute Monos (auto) 0.63 (0.0-1.3) x10^3/uL Absolute Nucleated RBC 0.00 (0.00-0.01) x10^3u/L Lymphocytes % 11.5 L (24.0-44.0) % Monocytes % 4.7 (0.0-12.0) % Eosinophils % 2.5 (0.00-5.0) % Basophils % 0.2 (0.0-0.4) % Absolute Granulocytes 10.81 H (1.4-6.9) x10^3/uL Basophils # 0.03 (0-0.4) x10^3/uL Sodium 133 L (137-145) mmol/L Potassium 5.1 (3.5-5.1) mmol/L Chloride 100 (98-107) mmol/L Carbon Dioxide 25 (22-30) mmol/L Anion Gap 12.8 (5-15) MEQ/L BUN 33 H (7-17) mg/dL Creatinine 1.36 H (0.52-1.04) mg/dL Estimated GFR 41.4 ML/MIN Glucose 192 H (74-106) mg/dL Lactic Acid 1.6 (0.4-2.0) Calcium 9.3 (8.4-10.2) mg/dL Total Bilirubin 0.50 (0.2-1.3) mg/dL AST 31 (14-36) U/L ALT 13 (0-35) U/L Alkaline Phosphatase 89 (38-126) U/L Serum Total Protein 6.9 (6.3-8.2) g/dL Albumin 3.8 (3.5-5.0) g/dL Urine Color (Yellow) Urine Appearance (Clear) Urine pH (4.6-8.0) Ur Specific [place] (1.005-1.030) Urine Protein (Negative) Urine Glucose (UA) (Negative) mg/dL Urine Ketones (Negative) Urine Blood (Negative) Urine Nitrite (Negative) Urine Bilirubin (Negative) Urine Urobilinogen (0.2) mg/dL Ur Leukocyte Esterase (Negative) U Hyaline Cast (Auto) (0-2) /LPF Urine Microscopic RBC (0-5) /HPF Urine Microscopic WBC (0-5) /HPF Ur Epithelial Cells (None Seen) /HPF Urine Bacteria (None Seen) /HPF Urine Culture Reflexed (NO) 07/04/23 07/05/23 Range/Units 20:39 04:25 WBC 12.8 H (4.0-10.5) x10^3/uL RBC 4.33 (4.1-5.4) x10^6/uL Hgb 10.7 L (12.0-16.0) g/dL Hct 36.4 (35-47) % MCV 84.1 (78-100) fL MCH 24.7 L (26-32) pg MCHC 29.4 L (32-36) g/dL RDW 13.6 (11.5-14.0) % Plt Count 222 (150-450) x10^3/uL MPV 11.3 H (7.5-11.0) fL Gran % (36.0-66.0) % Immature Gran % (Auto) (0.00-0.4) % Nucleat RBC Rel Count (0.00-0.1) % Eos # (Auto) (0-0.5) x10^3/uL Immature Gran # (Auto) (0.00-0.03) x10^3u/L Absolute Lymphs (auto) (1.0-4.6) x10^3/uL Absolute Monos (auto) (0.0-1.3) x10^3/uL Absolute Nucleated RBC (0.00-0.01) x10^3u/L Lymphocytes % (24.0-44.0) % Monocytes % (0.0-12.0) % Eosinophils % (0.00-5.0) % Basophils % (0.0-0.4) % Absolute Granulocytes (1.4-6.9) x10^3/uL Basophils # (0-0.4) x10^3/uL Sodium (137-145) mmol/L Potassium (3.5-5.1) mmol/L Chloride (98-107) mmol/L Carbon Dioxide (22-30) mmol/L Anion Gap (5-15) MEQ/L BUN (7-17) mg/dL Creatinine (0.52-1.04) mg/dL Estimated GFR ML/MIN Glucose (74-106) mg/dL Lactic Acid (0.4-2.0) Calcium (8.4-10.2) mg/dL Total Bilirubin (0.2-1.3) mg/dL AST (14-36) U/L ALT (0-35) U/L Alkaline Phosphatase (38-126) U/L Serum Total Protein (6.3-8.2) g/dL Albumin (3.5-5.0) g/dL Urine Color Yellow (Yellow) Urine Appearance Clear (Clear) Urine pH 5.5 (4.6-8.0) Ur Specific [place] <=1.005 (1.005-1.030) Urine Protein Negative (Negative) Urine Glucose (UA) Negative (Negative) mg/dL Urine Ketones Negative (Negative) Urine Blood Trace (Negative) Urine Nitrite Negative (Negative) Urine Bilirubin Negative (Negative) Urine Urobilinogen 0.2 (0.2) mg/dL Ur Leukocyte Esterase Large A (Negative) U Hyaline Cast (Auto) NONE SEEN (0-2) /LPF Urine Microscopic RBC 0-2 (0-5) /HPF Urine Microscopic WBC 11-20 A (0-5) /HPF Ur Epithelial Cells None Seen (None Seen) /HPF Urine Bacteria None Seen (None Seen) /HPF Urine Culture Reflexed YES (NO) Radiology Exams: Radiology Procedures Category Date Time Status VENOUS BILATERAL EXTREMITY [US] Routine Exams 07/05/23 02:06 Ordered Assessment/Plan (1) Sepsis Current Visit: Yes Status: Acute Assessment & Plan: -Secondary most likely to UTI/cellulitis -Zosyn started in ED, will continue -LA WNL -IVF contraindicated in the setting of CHF -Strict I&O -Blood and urine cultures pending -Dopplers pending -Monitor vitals - target MAP > 65mmHg and urine output >0.5ml/kg/hour -lovenox (2) UTI (urinary tract infection) Current Visit: Yes Status: Acute Assessment & Plan: -UA suspicious for UTI, will treat empirically with zosyn for now, follow cultures Code(s): N39.0 - URINARY TRACT INFECTION, SITE NOT SPECIFIED (3) Acute kidney injury Current Visit: Yes Status: Acute Assessment & Plan: -Fluids contraindicated -Baseline around 1.2-1.3 -Monitor renal/lytes -Avoid nephrotoxic meds TERESA/ARBS/NSAIDS Code(s): N17.9 - ACUTE KIDNEY FAILURE, UNSPECIFIED (4) CHF (congestive heart failure) Current Visit: Yes Status: Acute Assessment & Plan: -No recent echo, will get one -BNP 302 -Continue lasix -CXRchest less inflated with new mild right infrahilar infiltrate/atelectasis. -venous doppler pending -strict I&O, daily weights -supplemental o2 with spo2 goal > 92% -optimize electrolytes for goal K>4, mg>2 Code(s): I50.9 - HEART FAILURE, UNSPECIFIED (5) COPD (chronic obstructive pulmonary disease) Current Visit: Yes Status: Acute Assessment & Plan: -Does not appear to be in exacerbation -on RA -Supplemental oxygen/nebs/in as needed -cxr chest less inflated with new mild right infrahilar infiltrate/atelectasis. (6) HTN (hypertension) Current Visit: Yes Status: Acute Assessment & Plan: -stable, has been hypotensive, continue to monitor, patient's family to bring in home med list/bottles, patient unsure of home medications Code(s): I10 - ESSENTIAL (PRIMARY) HYPERTENSION (7) Lymphedema of both lower extremities Current Visit: No Status: Acute Assessment & Plan: -PT/OT - compression dressings Code(s): I89.0 - LYMPHEDEMA, NOT ELSEWHERE CLASSIFIED (8) Infiltrate noted on imaging study Current Visit: Yes Status: Acute Assessment & Plan: -history of HF vs infectious process -continue zosyn/diuresis -Plan for repeat cxr for resolution Code(s): R93.89 - ABNORMAL FINDINGS ON DX IMAGING OF OTH BODY STRUCTURES
[2023-07-05 06:35] LABS: MAGNESIUM 2.1 mg/dL (1.6-2.3)
[2023-07-05] MEDS ORDERED: PIPERACILLIN/TAZOBACTAM IV ONE (06:56)
[2023-07-05] MEDS ORDERED: Sodium Chloride 100ML MINI-BAG PLUS 100 ML IV ONE (06:57)
[2023-07-05] MEDS ORDERED: PIPERACILLIN/TAZOBACTAM 3.375 GM in Sodium Chloride 100ML MINI-BAG PLUS 100 ML IV SCH (07:00)
[2023-07-05] MEDS ORDERED: Piperacillin/Tazobactam 2.25 GM 2.25 GM in Sodium Chloride 100ML MINI-BAG PLUS 100 ML IV SCH (08:00)
[2023-07-05] MEDS: Protonix 40MG Tablet PO SCH (08:20)
[2023-07-05] MEDS: Lasix 40 MG/4 ML IV SCH ×2 (08:20→17:32)
[2023-07-05] MEDS: ENOXAPARIN SODIUM SQ SCH (08:20)
[2023-07-05] MEDS: MAG-OX 400 PO SCH ×2 (08:20→21:26)
--- NOTE | 2023-07-05 09:07 | XRAY ---
Indication: Short of breath. Comparison: January 31, 2022 Portable chest less inflated with new mild right infrahilar infiltrate/atelectasis. Remaining heart and left lung unremarkable. Bony thorax intact again with osteopenia and degenerative changes.
[2023-07-05] MEDS ORDERED: MAG-OX 400 PO ONE (11:30)
[2023-07-05] MEDS: Piperacillin/Tazobactam 2.25 GM 2.25 GM in Sodium Chloride 100ML MINI-BAG PLUS 100 ML IV SCH ×3 (11:44→23:43)
[2023-07-05] MEDS: Zestril 20 MG PO SCH (14:27)
[2023-07-05] MEDS: Cymbalta 30 MG Capsule PO SCH (14:27)
--- NOTE | 2023-07-06 05:06 | PCM.NOTE ---
Date and Time: 07/06/23 3262 Subjective Assessment: Ms. Cheng is a 73 year old female with a past medical history significant for hypertension, diabetes, hyperlipidemia, lymphedema, CHF and frequent UTIs who presented to ED 07/04/24 with complaints of pain and swelling in her lower extremities. Patient does have history of bilateral leg lymphedema and swelling. She was treated outpatient with oral Keflex by her PCP with no improvement. Septic on presentation with WBC at 13.5, urine analysis revealed large leukocyte Estrace, 30 white blood cells, creat at 1.41 (baseline around 1.2-1.3). Patient admitted with sepsis secondary to UTI/cellulitis, BLE edema, and ARLINE, current treatment with zosyn and lasix. 07/06: Met with patient bedside. No overnight events noted. Declined venous doppler yesterday due to pain, offered pain medication prior, patient still declines. Advised patient we will not be able to apply compression dressings without this imaging. Patient verbalized understanding. BLE improving. Boarders marked, legs elevated. Patient endorses continued pain which she is rating at 6/10 this morning. PT eval with recs for dc with HHC/ two wheeled walker. Denies fever,cough, sob, cp, abdominal pain, FOSTER, dizziness, N/V/D. - Review of Systems Constitutional: No Symptoms Eyes: No Symptoms Ears, Nose, & Throat: No Symptoms Respiratory: No Symptoms Cardiac: Edema (BLE +4 ) Abdominal/Gastrointestinal: No Symptoms Genitourinary Symptoms: No Symptoms Musculoskeletal: No Symptoms Skin: Cellulitis (BLE ) Neurological: No Symptoms Psychological: No Symptoms Endocrine: No Symptoms Hematologic/Lymphatic: No Symptoms Immunological/Allergic: No Symptoms Objective Exam General Appearance: no apparent distress Neurologic Exam: alert, oriented x 3, cooperative Skin Exam: other (BLE edema/pedal edema +4 pitting/weeping superimposed cellulitis) Eye Exam: PERRL Ears, Nose, Throat Exam: normal ENT inspection Neck Exam: normal inspection Respiratory Exam: normal breath sounds, lungs clear Cardiovascular Exam: regular rate/rhythm, normal heart sounds Gastrointestinal/Abdomen Exam: soft, normal bowel sounds Extremity Exam: inflammation (BLE), swelling Back Exam: normal inspection Pelvic Exam: deferred Rectal Exam: deferred OBJECTIVE DATA Vital Signs: Vital Signs - 24 hr Temp Pulse Resp BP Pulse Ox 07/06/23 04:00 97.0 F 117 H 20 124/56 97 07/05/23 23:49 97.5 F 107 H 14 103/53 96 07/05/23 20:00 97.3 F 109 H 20 124/60 96 07/05/23 15:50 98.1 F 108 H 16 161/66 96 07/05/23 11:50 97.7 F 116 H 16 110/54 96 07/05/23 06:32 97.7 F 113 H 16 116/56 97 Pain Assessment - Last Documented Pain Intensity 5 Pain Scale Used 0-10 Pain Scale Intake and Output: Intake & Output 07/03/23 07/04/23 07/05/23 07/06/23 11:59 11:59 11:59 11:59 Intake Total 380 1340 Output Total 450 Balance 380 890 Weight 143.5 kg 143.5 kg Lab Results: Lab Results-Last 24 Hours 07/05/23 Range/Units 04:25 Sodium 135 L (137-145) mmol/L Potassium 4.5 (3.5-5.1) mmol/L Chloride 100 (98-107) mmol/L Carbon Dioxide 28 (22-30) mmol/L Anion Gap 11.1 (5-15) MEQ/L BUN 31 H (7-17) mg/dL Creatinine 1.41 H (0.52-1.04) mg/dL Estimated GFR 39.6 ML/MIN Glucose 119 H (74-106) mg/dL Calcium 9.3 (8.4-10.2) mg/dL Magnesium 2.1 (1.6-2.3) mg/dL NT-Pro-B Natriuret Pep 302 (<300) pg/mL Prealbumin 12.84 L (17.6-36.0) mg/dL Radiology Exams: Radiology Procedures Category Date Time Status CHEST 1 VIEW (PORTABLE) Stat Exams 07/05/23 08:36 Completed ECHO W/2D AND DOPPLER [US] Routine Exams 07/05/23 05:25 Taken Multi-Disciplinary Progress Notes: Multi-Disciplinary Progress Notes 07/05/23 14:15 Case Management Note by Jodee Gutierrez REFERRAL SENT TO [facility]. THEY WILL NEED NOTIFIED AT TIME OF DC AT [phone]. THEY WILL NEED FAXED THE DC INSTRUCTIONS, DC MED LIST AND DC SUMMARY TO [phone] Initialized on 07/05/23 14:15 - END OF NOTE 07/05/23 11:41 Case Management Note by Jodee Gutierrez Addendum entered by Jodee Gutierrez 07/05/23 14:11: S/W KATYA FROM [facility]- SHE REPORTS THEY ARE STILL TRYING TO GET ALL THE RECORDS TO SEE IF THEY CAN ACCEPT HER. WILL INITIATE REFERRAL FOR C WITH [facility] AT THIS TIME- THEY CAN CARE FOR PATIENT WHILE [facility] IS DECIDING IF AND WHEN THEY CAN TAKE PATIENT. KATYA STATES THEY WORK CLOSELY WITH [facility] AND WILL BE IN CONTACT WITH [employer] ONCE SHE IS ABLE TO KNOW MORE ABOUT TAKING PATIENT. S/W WALLY WITH [facility] [employer]- SHE IS AWARE OF SITUATION WELL Original Note: PATIENT REPORTS SHE WAS RECENTLY DCD FROM [facility] ON 06/24/23 DUE TO "DOING TOO WELL". FAMILY HAS SINCE CHECKED WITH [facility] TO SEE IF THEY CAN TAKE HER. THEY CAME TO DO AN EVAL AT HER HOME ON 07/04 BUT D/T HER LEGS AND LACK OF RECENT PHYSICIAN RECORDS THEY RECOMMENDED HER TO GO TO THE ER. PATIENT WOULD LIKE TO DC HOME WITH HOSPICE OR HHC. WE DISCUSSED A REHAB STAY BUT PATIENT AND DAUGHTER DOES NOT THINK PATIENT WILL TOLERATE THE REHAB. THEY REPORT SHE IS INDEPENDENT AT HOME AND ABLE TO CARE FOR HERSELF MOSTLY. DISCUSSED [facility] TO SEE WHERE THEY WERE AT WITH THEIR PROCESS. IF [facility] NOT IMMEDIATELY AVAILABLE AT [place]- WILL SET UP [facility] ( PATIENT PATIENT CHOICE) UNTIL [facility] ABLE TO TAKE PATIENT. CALLED [facility]- UNABLE TO FINISH EVAL D/T HAVING TO SEND PATIENT TO ER. THEY HAVE NOT ACCEPTED HER AT THIS TIME DO NOT KNOW IF/WHEN THEY WILL. THEY WILL HAVE THE [facility] CALL [facility] COORDIN[facility] BACK Initialized on 07/05/23 11:41 - END OF NOTE Assessment/Plan (1) Sepsis Current Visit: Yes Status: Acute Assessment & Plan: -Secondary most likely to UTI/cellulitis -Zosyn started in ED, will continue -LA WNL -IVF contraindicated in the setting of CHF -Strict I&O -Blood and urine cultures pending -Dopplers pending -Monitor vitals - target MAP > 65mmHg and urine output >0.5ml/kg/hour -lovenox 07/06: -No longer meeting criteria -WBC normal -Zosyn continued for treatment of UTI/cellulitis (2) UTI (urinary tract infection) Current Visit: Yes Status: Acute Assessment & Plan: -UA suspicious for UTI, will treat empirically with zosyn for now, follow cultures 07/06: -Cultures pending Code(s): N39.0 - URINARY TRACT INFECTION, SITE NOT SPECIFIED (3) Acute kidney injury Current Visit: Yes Status: Acute Assessment & Plan: -Fluids contraindicated -Baseline around 1.2-1.3 -Monitor renal/lytes -Avoid nephrotoxic meds TERESA/ARBS/NSAIDS 07/06: -creat elevated most likely secondary to diurectics, will dose reduce lasix Code(s): N17.9 - ACUTE KIDNEY FAILURE, UNSPECIFIED (4) CHF (congestive heart failure) Current Visit: Yes Status: Acute Assessment & Plan: -No recent echo, will get one -BNP 302 -Continue lasix -CXRchest less inflated with new mild right infrahilar infiltrate/atelectasis. -venous doppler pending -strict I&O, daily weights -supplemental o2 with spo2 goal > 92% -optimize electrolytes for goal K>4, mg>2 Code(s): I50.9 - HEART FAILURE, UNSPECIFIED (5) COPD (chronic obstructive pulmonary disease) Current Visit: Yes Status: Acute Assessment & Plan: -Does not appear to be in exacerbation -on RA -Supplemental oxygen/nebs/in as needed -cxr chest less inflated with new mild right infrahilar infiltrate/atelectasis. (6) HTN (hypertension) Current Visit: Yes Status: Acute Assessment & Plan: -stable, has been hypotensive, continue to monitor, patient's family to bring in home med list/bottles, patient unsure of home medications Code(s): I10 - ESSENTIAL (PRIMARY) HYPERTENSION (7) Lymphedema of both lower extremities Current Visit: No Status: Acute Assessment & Plan: -PT/OT - compression dressings 07/06: -Superimposed cellulitis -Wound culture drainage -Zosyn -Declines venous doppler -Unable to get compression dressing due to refusing venous doppler Code(s): I89.0 - LYMPHEDEMA, NOT ELSEWHERE CLASSIFIED (8) Infiltrate noted on imaging study Current Visit: Yes Status: Acute Assessment & Plan: -history of HF vs infectious process -continue zosyn/diuresis -Plan for repeat cxr for resolution (9) cellulitis -wound culture pending collection -doppler unable to obtain -zosyn - failed keflex outpt -elevate BLE -triamcinolone topically bid (2) UTI (urinary tract infection) Current Visit: Yes Status: Acute Code(s): N39.0 - URINARY TRACT INFECTION, SITE NOT SPECIFIED (3) Acute kidney injury Current Visit: Yes Status: Acute Code(s): N17.9 - ACUTE KIDNEY FAILURE, UNSPECIFIED (4) CHF (congestive heart failure) Current Visit: Yes Status: Acute Code(s): I50.9 - HEART FAILURE, UNSPECIFIED (5) COPD (chronic obstructive pulmonary disease) Current Visit: Yes Status: Acute (6) HTN (hypertension) Current Visit: Yes Status: Acute Code(s): I10 - ESSENTIAL (PRIMARY) HYPERTENSION (7) Lymphedema of both lower extremities Current Visit: No Status: Acute Code(s): I89.0 - LYMPHEDEMA, NOT ELSEWHERE CLASSIFIED (8) Infiltrate noted on imaging study Current Visit: Yes Status: Acute Code(s): R93.89 - ABNORMAL FINDINGS ON DX IMAGING OF OTH BODY STRUCTURES (9) Cellulitis of both lower extremities Current Visit: Yes Status: Acute Code(s): L03.115 - CELLULITIS OF RIGHT LOWER LIMB; L03.116 - CELLULITIS OF LEFT LOWER LIMB
[2023-07-06] MEDS: OXYCODONE-ACETAMINOPHEN 10-325 PO PRN ×3 (05:09→18:26)
[2023-07-06] MEDS: Piperacillin/Tazobactam 2.25 GM 2.25 GM in Sodium Chloride 100ML MINI-BAG PLUS 100 ML IV SCH ×3 (05:10→18:26)
[2023-07-06 06:32] LABS: Absolute Neutrophil Ct (ANC) 5.44 x10^3/uL (1.4-6.9); BASOPHIL % 0.6 % (0.0-0.4); Basophil (Absolute #) 0.05 x10^3/uL (0-0.4); Eosinophil % 3.7 % (0.00-5.0); Eosinophil (Absolute #) 0.31 x10^3/uL (0-0.5); Hematocrit 32.9 % (35-47); Hemoglobin 9.7 g/dL (12.0-16.0); IMMATURE GRAN # 0.04 x10^3u/L (0.00-0.03); IMMATURE GRAN % 0.5 % (0.00-0.4); Lymphocyte (Absolute #) 2.06 x10^3/uL (1.0-4.6); Lymphocytes % 24.3 % (24.0-44.0); Mean Cell Volume 84.1 fL (78-100); Mean Corpuscular Hemoglobin 24.8 pg (26-32); Mean Corpuscular Hgb Concent. 29.5 g/dL (32-36); Mean Platelet Volume 11.6 fL (7.5-11.0); Monocyte (Absolute #) 0.56 x10^3/uL (0.0-1.3); Monocytes % 6.6 % (0.0-12.0); Neutrophil % 64.3 % (36.0-66.0); Platelet Count 204 x10^3/uL (150-450); Red Blood Count 3.91 x10^6/uL (4.1-5.4); Red Cell Distribution Width 13.9 % (11.5-14.0); White Blood Count 8.5 x10^3/uL (4.0-10.5)
[2023-07-06 06:39] LABS: ALBUMIN 3.3 g/dL (3.5-5.0); ANION GAP 8.2 MEQ/L (5-15); BILIRUBIN,TOTAL 0.6 mg/dL (0.2-1.3); Calcium 8.6 mg/dL (8.4-10.2); Creatinine 1 1.64 mg/dL (0.52-1.04); EST GLOMERULAR FILTRATION RATE 33.1 ML/MIN; Potassium 4.4 mmol/L (3.5-5.1)
[2023-07-06] MEDS ORDERED: MAG-OX 400 PO SCH (10:00)
[2023-07-06] MEDS: Klor Con PO SCH (10:41)
[2023-07-06] MEDS: Lasix 40 MG/4 ML IV SCH (10:41)
[2023-07-06] MEDS: Protonix 40MG Tablet PO SCH (10:41)
[2023-07-06] MEDS: Zestril 20 MG PO SCH (10:41)
[2023-07-06] MEDS: MAG-OX 400 PO SCH ×2 (10:41→23:04)
[2023-07-06] MEDS: KENALOG 0.1% CREAM 15 GM TP SCH ×2 (10:41→23:05)
[2023-07-06] MEDS: Cymbalta 30 MG Capsule PO SCH (10:41)
[2023-07-06] MEDS: ENOXAPARIN SODIUM SQ SCH (10:42)
[2023-07-06] MEDS ORDERED: MAG-OX 400 PO ONE (11:30)
[2023-07-06] MEDS: Ms Contin 15 MG PO SCH (23:05)
[2023-07-07] MEDS: Piperacillin/Tazobactam 2.25 GM 2.25 GM in Sodium Chloride 100ML MINI-BAG PLUS 100 ML IV SCH ×2 (00:24→05:52)
[2023-07-07] MEDS: OXYCODONE-ACETAMINOPHEN 10-325 PO PRN (04:30)
--- NOTE | 2023-07-07 05:10 | PCM.NOTE ---
Date and Time: 07/07/23 0509 Subjective Assessment: Ms. Cheng is a 73 year old female with a past medical history significant for hypertension, diabetes, hyperlipidemia, lymphedema, CHF and frequent UTIs who presented to ED 07/04/24 with complaints of pain and swelling in her lower extremities. Patient does have history of bilateral leg lymphedema and swelling. She was treated outpatient with oral Keflex by her PCP with no improvement. Septic on presentation with WBC at 13.5, urine analysis revealed large leukocyte Estrace, 30 white blood cells, creat at 1.41 (baseline around 1.2-1.3). Patient admitted with sepsis secondary to UTI/cellulitis, BLE edema, and ARLINE, current treatment with zosyn and lasix. 07/06: Met with patient bedside. No overnight events noted. Declined venous doppler yesterday due to pain, offered pain medication prior, patient still declines. Advised patient we will not be able to apply compression dressings without this imaging. Patient verbalized understanding. BLE improving. Boarders marked, legs elevated. Patient endorses continued pain which she is rating at 6/10 this morning. PT eval with recs for dc with HHC/ two wheeled walker. Denies fever,cough, sob, cp, abdominal pain, FOSTER, dizziness, N/V/D. OBJECTIVE DATA Vital Signs: Vital Signs - 24 hr Temp Pulse Resp BP Pulse Ox 07/07/23 04:00 98.4 F 107 H 21 122/59 96 07/06/23 23:48 98.2 F 102 H 22 124/81 96 07/06/23 20:00 97.7 F 73 20 130/60 97 07/06/23 16:00 97.6 F 108 H 17 07/06/23 12:00 96.7 F 106 H 18 127/57 95 07/06/23 07:37 97.7 F 109 H 20 96/50 96 Pain Assessment - Last Documented Pain Intensity 7 Pain Scale Used 0-10 Pain Scale Intake and Output: Intake & Output 07/04/23 07/05/23 07/06/23 07/07/23 11:59 11:59 11:59 11:59 Intake Total 380 1460 1740 Output Total 450 Balance 380 1010 1740 Weight 143.5 kg 140 kg Lab Results: Lab Results-Last 24 Hours 07/06/23 07/06/23 Range/Units 05:46 05:46 WBC 8.5 (4.0-10.5) x10^3/uL RBC 3.91 L (4.1-5.4) x10^6/uL Hgb 9.7 L (12.0-16.0) g/dL Hct 32.9 L (35-47) % MCV 84.1 (78-100) fL MCH 24.8 L (26-32) pg MCHC 29.5 L (32-36) g/dL RDW 13.9 (11.5-14.0) % Plt Count 204 (150-450) x10^3/uL MPV 11.6 H (7.5-11.0) fL Gran % 64.3 (36.0-66.0) % Immature Gran % (Auto) 0.5 H (0.00-0.4) % Nucleat RBC Rel Count 0.0 (0.00-0.1) % Eos # (Auto) 0.31 (0-0.5) x10^3/uL Immature Gran # (Auto) 0.04 H (0.00-0.03) x10^3u/L Absolute Lymphs (auto) 2.06 (1.0-4.6) x10^3/uL Absolute Monos (auto) 0.56 (0.0-1.3) x10^3/uL Absolute Nucleated RBC 0.00 (0.00-0.01) x10^3u/L Lymphocytes % 24.3 (24.0-44.0) % Monocytes % 6.6 (0.0-12.0) % Eosinophils % 3.7 (0.00-5.0) % Basophils % 0.6 (0.0-0.4) % Absolute Granulocytes 5.44 (1.4-6.9) x10^3/uL Basophils # 0.05 (0-0.4) x10^3/uL Sodium 134 L (137-145) mmol/L Potassium 4.4 (3.5-5.1) mmol/L Chloride 99 (98-107) mmol/L Carbon Dioxide 31 H (22-30) mmol/L Anion Gap 8.2 (5-15) MEQ/L BUN 34 H (7-17) mg/dL Creatinine 1.64 H (0.52-1.04) mg/dL Estimated GFR 33.1 ML/MIN Glucose 106 (74-106) mg/dL Calcium 8.6 (8.4-10.2) mg/dL Magnesium 2.0 (1.6-2.3) mg/dL Total Bilirubin 0.60 (0.2-1.3) mg/dL AST 19 (14-36) U/L ALT 9 (0-35) U/L Alkaline Phosphatase 71 (38-126) U/L Serum Total Protein 6.0 L (6.3-8.2) g/dL Albumin 3.3 L (3.5-5.0) g/dL Radiology Exams: Radiology Procedures Category Date Time Status CHEST 1 VIEW (PORTABLE) Stat Exams 07/05/23 08:36 Completed ECHO W/2D AND DOPPLER [US] Routine Exams 07/05/23 05:25 Taken Assessment/Plan (1) Sepsis Current Visit: Yes Status: Acute Assessment & Plan: -Secondary most likely to UTI/cellulitis -Zosyn started in ED, will continue -LA WNL -IVF contraindicated in the setting of CHF -Strict I&O -Blood and urine cultures pending -Dopplers pending -Monitor vitals - target MAP > 65mmHg and urine output >0.5ml/kg/hour -lovenox 07/06: -No longer meeting criteria -WBC normal -Zosyn continued for treatment of UTI/cellulitis (2) UTI (urinary tract infection) Current Visit: Yes Status: Acute Assessment & Plan: -UA suspicious for UTI, will treat empirically with zosyn for now, follow cultures 07/06: -Cultures pending Code(s): N39.0 - URINARY TRACT INFECTION, SITE NOT SPECIFIED (3) Acute kidney injury Current Visit: Yes Status: Acute Assessment & Plan: -Fluids contraindicated -Baseline around 1.2-1.3 -Monitor renal/lytes -Avoid nephrotoxic meds TERESA/ARBS/NSAIDS 07/06: -creat elevated most likely secondary to diurectics, will dose reduce lasix Code(s): N17.9 - ACUTE KIDNEY FAILURE, UNSPECIFIED (4) CHF (congestive heart failure) Current Visit: Yes Status: Acute Assessment & Plan: -No recent echo, will get one -BNP 302 -Continue lasix -CXRchest less inflated with new mild right infrahilar infiltrate/atelectasis. -venous doppler pending -strict I&O, daily weights -supplemental o2 with spo2 goal > 92% -optimize electrolytes for goal K>4, mg>2 Code(s): I50.9 - HEART FAILURE, UNSPECIFIED (5) COPD (chronic obstructive pulmonary disease) Current Visit: Yes Status: Acute Assessment & Plan: -Does not appear to be in exacerbation -on RA -Supplemental oxygen/nebs/in as needed -cxr chest less inflated with new mild right infrahilar infiltrate/atelectasis. (6) HTN (hypertension) Current Visit: Yes Status: Acute Assessment & Plan: -stable, has been hypotensive, continue to monitor, patient's family to bring in home med list/bottles, patient unsure of home medications Code(s): I10 - ESSENTIAL (PRIMARY) HYPERTENSION (7) Lymphedema of both lower extremities Current Visit: No Status: Acute Assessment & Plan: -PT/OT - compression dressings 07/06: -Superimposed cellulitis -Wound culture drainage -Zosyn -Declines venous doppler -Unable to get compression dressing due to refusing venous doppler Code(s): I89.0 - LYMPHEDEMA, NOT ELSEWHERE CLASSIFIED (8) Infiltrate noted on imaging study Current Visit: Yes Status: Acute Assessment & Plan: -history of HF vs infectious process -continue zosyn/diuresis -Plan for repeat cxr for resolution (9) cellulitis -wound culture pending collection -doppler unable to obtain -zosyn - failed keflex outpt -elevate BLE -triamcinolone topically bid (2) UTI (urinary tract infection) Current Visit: Yes Status: Acute Code(s): N39.0 - URINARY TRACT INFECTION, SITE NOT SPECIFIED (3) Acute kidney injury Current Visit: Yes Status: Acute Code(s): N17.9 - ACUTE KIDNEY FAILURE, UNSPECIFIED (4) CHF (congestive heart failure) Current Visit: Yes Status: Acute Code(s): I50.9 - HEART FAILURE, UNSPECIFIED (5) COPD (chronic obstructive pulmonary disease) Current Visit: Yes Status: Acute (6) HTN (hypertension) Current Visit: Yes Status: Acute Code(s): I10 - ESSENTIAL (PRIMARY) HYPERTENSION (7) Lymphedema of both lower extremities Current Visit: No Status: Acute Code(s): I89.0 - LYMPHEDEMA, NOT ELSEWHERE CLASSIFIED (8) Infiltrate noted on imaging study Current Visit: Yes Status: Acute Code(s): R93.89 - ABNORMAL FINDINGS ON DX IMAGING OF OTH BODY STRUCTURES (9) Cellulitis of both lower extremities Current Visit: Yes Status: Acute Code(s): L03.115 - CELLULITIS OF RIGHT LOWER LIMB; L03.116 - CELLULITIS OF LEFT LOWER LIMB
[2023-07-07 06:24] LABS: Absolute Neutrophil Ct (ANC) 6.27 x10^3/uL (1.4-6.9); BASOPHIL % 0.5 % (0.0-0.4); Basophil (Absolute #) 0.05 x10^3/uL (0-0.4); Eosinophil % 3.5 % (0.00-5.0); Eosinophil (Absolute #) 0.35 x10^3/uL (0-0.5); Hematocrit 33.8 % (35-47); IMMATURE GRAN # 0.04 x10^3u/L (0.00-0.03); IMMATURE GRAN % 0.4 % (0.00-0.4); Lymphocyte (Absolute #) 2.54 x10^3/uL (1.0-4.6); Lymphocytes % 25.5 % (24.0-44.0); Mean Cell Volume 83.5 fL (78-100); Mean Corpuscular Hemoglobin 24.7 pg (26-32); Mean Corpuscular Hgb Concent. 29.6 g/dL (32-36); Mean Platelet Volume 11.2 fL (7.5-11.0); Monocyte (Absolute #) 0.72 x10^3/uL (0.0-1.3); Monocytes % 7.2 % (0.0-12.0); Neutrophil % 62.9 % (36.0-66.0); Platelet Count 208 x10^3/uL (150-450); Red Blood Count 4.05 x10^6/uL (4.1-5.4); Red Cell Distribution Width 13.6 % (11.5-14.0)
[2023-07-07 06:36] LABS: ALBUMIN 3.4 g/dL (3.5-5.0); ANION GAP 10.6 MEQ/L (5-15); BILIRUBIN,TOTAL 0.5 mg/dL (0.2-1.3); Calcium 8.8 mg/dL (8.4-10.2); Creatinine 1 1.67 mg/dL (0.52-1.04); EST GLOMERULAR FILTRATION RATE 32.4 ML/MIN; MAGNESIUM 2.2 mg/dL (1.6-2.3); Potassium 4.2 mmol/L (3.5-5.1); Total Protein 6.2 g/dL (6.3-8.2)
[2023-07-07 07:34] VITALS: RESP 17; O2SAT 95
[2023-07-07] MEDS: Ms Contin 15 MG PO SCH (09:44)
[2023-07-07] MEDS: Protonix 40MG Tablet PO SCH (09:44)
[2023-07-07] MEDS: Klor Con PO SCH (09:44)
[2023-07-07] MEDS: MAG-OX 400 PO SCH (09:44)
[2023-07-07] MEDS: KENALOG 0.1% CREAM 15 GM TP SCH (09:45)
[2023-07-07] MEDS: Cymbalta 30 MG Capsule PO SCH (09:45)
[2023-07-07] MEDS: ENOXAPARIN SODIUM SQ SCH (09:45)
[2023-07-07] MEDS: Zestril 20 MG PO SCH (09:45)
[2023-07-07] MEDS ORDERED: Lasix 40 MG/4 ML IV SCH (10:00)
--- NOTE | 2023-07-07 11:05 | PCM.DS ---
Discharge Summary Date of Admission: 07/04/23 22:41 Date of Discharge: 07/07/23 Admitting Physician: ORVILLE MUIR MD Primary Care Provider: YOKO SANCHEZ Allergies Allergies latex Allergy (Intermediate, Verified 07/04/23 18:07) Blisters erythromycin base Adverse Reaction (Severe, Verified 07/04/23 18:07) Nausea Sulfa (Sulfonamide Antibiotics) Adverse Reaction (Severe, Verified 07/04/23 18:07) Nausea Hospital Summary - Hospital Course Hospital Course: Ms. Chneg is a 73 year old female with a past medical history significant for hypertension, diabetes, hyperlipidemia, lymphedema, CHF and frequent UTIs who presented to ED 07/04/24 with complaints of pain and swelling in her lower extremities. Patient does have history of bilateral leg lymphedema and swelling. She was treated outpatient with oral Keflex by her PCP with no improvement. Septic on presentation with WBC at 13.5, urine analysis revealed large leukocyte Estrace, 30 white blood cells, creat at 1.41 (baseline around 1.2-1.3). Patient admitted with sepsis secondary to UTI/cellulitis, BLE edema, and ARLINE, IP treatment with zosyn, triamcinolone cream, and lasix with noted improvement. Final urine culture showing pseudomonas, sensitive to zosyn. Patient refused dopplers during admission as well as elevating legs. Patient will discharge today with oral cefdinir. Advised follow up with PCP for treatment response monitoring. Patient agreeable to plan and ready for discharge. Discharge Note New Diagnosis: UTI/Cellulitis New Medications:cefdinir/triamcinolone Follow Up: PCP Results pending: wound culture Latest Assessment & Plan (1) Sepsis Current Visit: Yes Status: Acute Assessment & Plan: -Secondary most likely to UTI/cellulitis -Zosyn started in ED, will continue -LA WNL -IVF contraindicated in the setting of CHF -Strict I&O -Blood and urine cultures pending -Dopplers pending -Monitor vitals - target MAP > 65mmHg and urine output >0.5ml/kg/hour -lovenox 07/06: -No longer meeting criteria -WBC normal -Zosyn continued for treatment of UTI/cellulitis (2) UTI (urinary tract infection) Current Visit: Yes Status: Acute Assessment & Plan: -UA suspicious for UTI, will treat empirically with zosyn for now, follow cultures 07/06: -Cultures pending Code(s): N39.0 - URINARY TRACT INFECTION, SITE NOT SPECIFIED (3) Acute kidney injury Current Visit: Yes Status: Acute Assessment & Plan: -Fluids contraindicated -Baseline around 1.2-1.3 -Monitor renal/lytes -Avoid nephrotoxic meds TERESA/ARBS/NSAIDS 07/06: -creat elevated most likely secondary to diurectics, will dose reduce lasix Code(s): N17.9 - ACUTE KIDNEY FAILURE, UNSPECIFIED (4) CHF (congestive heart failure) Current Visit: Yes Status: Acute Assessment & Plan: -No recent echo, will get one -BNP 302 -Continue lasix -CXRchest less inflated with new mild right infrahilar infiltrate/atelectasis. -venous doppler pending -strict I&O, daily weights -supplemental o2 with spo2 goal > 92% -optimize electrolytes for goal K>4, mg>2 Code(s): I50.9 - HEART FAILURE, UNSPECIFIED (5) COPD (chronic obstructive pulmonary disease) Current Visit: Yes Status: Acute Assessment & Plan: -Does not appear to be in exacerbation -on RA -Supplemental oxygen/nebs/in as needed -cxr chest less inflated with new mild right infrahilar infiltrate/atelectasis. (6) HTN (hypertension) Current Visit: Yes Status: Acute Assessment & Plan: -stable, has been hypotensive, continue to monitor, patient's family to bring in home med list/bottles, patient unsure of home medications Code(s): I10 - ESSENTIAL (PRIMARY) HYPERTENSION (7) Lymphedema of both lower extremities Current Visit: No Status: Acute Assessment & Plan: -PT/OT - compression dressings 07/06: -Superimposed cellulitis -Wound culture drainage -Zosyn -Declines venous doppler -Unable to get compression dressing due to refusing venous doppler Code(s): I89.0 - LYMPHEDEMA, NOT ELSEWHERE CLASSIFIED (8) Infiltrate noted on imaging study Current Visit: Yes Status: Acute Assessment & Plan: -history of HF vs infectious process -continue zosyn/diuresis -Plan for repeat cxr for resolution (9) cellulitis -wound culture pending collection -doppler unable to obtain -zosyn - failed keflex outpt -elevate BLE -triamcinolone topically bid I spent 35 minutes [id number] with the patient on the day of discharge performing discharge exam, discussing hospital stay and discharge instructions with patient and caregivers, preparation of discharge records, prescriptions & referral forms and addressing any questions/concerns the patient had as documented above. - Vitals & Intake/Output Vital Signs: Vital Signs Temperature 97.5 F 07/07/23 07:33 Pulse Rate 100 H 07/07/23 07:33 Respiratory Rate 17 07/07/23 07:33 Blood Pressure 123/57 07/07/23 07:33 O2 Sat by Pulse Oximetry 95 07/07/23 07:33 Intake & Output: Intake & Output 07/04/23 07/05/23 07/06/23 07/07/23 11:59 11:59 11:59 11:59 Intake Total 380 1460 1860 Output Total 450 100 Balance 380 1010 1760 Weight 143.5 kg 140 kg - Lab Result Diagrams: 07/07/23 06:02 07/07/23 06:02 Lab Results-Last 24 Hrs: Lab Results-Last 24 Hours 07/07/23 07/07/23 Range/Units 06:02 06:02 WBC 10.0 (4.0-10.5) x10^3/uL RBC 4.05 L (4.1-5.4) x10^6/uL Hgb 10.0 L (12.0-16.0) g/dL Hct 33.8 L (35-47) % MCV 83.5 (78-100) fL MCH 24.7 L (26-32) pg MCHC 29.6 L (32-36) g/dL RDW 13.6 (11.5-14.0) % Plt Count 208 (150-450) x10^3/uL MPV 11.2 H (7.5-11.0) fL Gran % 62.9 (36.0-66.0) % Immature Gran % (Auto) 0.4 (0.00-0.4) % Nucleat RBC Rel Count 0.0 (0.00-0.1) % Eos # (Auto) 0.35 (0-0.5) x10^3/uL Immature Gran # (Auto) 0.04 H (0.00-0.03) x10^3u/L Absolute Lymphs (auto) 2.54 (1.0-4.6) x10^3/uL Absolute Monos (auto) 0.72 (0.0-1.3) x10^3/uL Absolute Nucleated RBC 0.00 (0.00-0.01) x10^3u/L Lymphocytes % 25.5 (24.0-44.0) % Monocytes % 7.2 (0.0-12.0) % Eosinophils % 3.5 (0.00-5.0) % Basophils % 0.5 (0.0-0.4) % Absolute Granulocytes 6.27 (1.4-6.9) x10^3/uL Basophils # 0.05 (0-0.4) x10^3/uL Sodium 136 L (137-145) mmol/L Potassium 4.2 (3.5-5.1) mmol/L Chloride 100 (98-107) mmol/L Carbon Dioxide 29 (22-30) mmol/L Anion Gap 10.6 (5-15) MEQ/L BUN 28 H (7-17) mg/dL Creatinine 1.67 H (0.52-1.04) mg/dL Estimated GFR 32.4 ML/MIN Glucose 110 H (74-106) mg/dL Calcium 8.8 (8.4-10.2) mg/dL Magnesium 2.2 (1.6-2.3) mg/dL Total Bilirubin 0.50 (0.2-1.3) mg/dL AST 17 (14-36) U/L ALT 9 (0-35) U/L Alkaline Phosphatase 73 (38-126) U/L Serum Total Protein 6.2 L (6.3-8.2) g/dL Albumin 3.4 L (3.5-5.0) g/dL Micro Results-Entire Visit: Microbiology 07/04/23 20:39 Urine Culture - Final Urine, Void Pseudomonas Aeruginosa 07/04/23 20:45 Blood Culture - Preliminary Blood - Procedures and Test Procedures and Tests throughout Hospitalization: Therapy Orders & Screens 07/05/23 02:01 PT Eval & Treat ( Order) ONCE Reason for Eval:: Weakness Diagnosis: Cellulitis Discharge Exam General Appearance: no apparent distress Neurologic Exam: alert, oriented x 3 Eye Exam: PERRL Ears, Nose, Throat Exam: normal ENT inspection Neck Exam: normal inspection Respiratory Exam: normal breath sounds, lungs clear Cardiovascular Exam: regular rate/rhythm, normal heart sounds, edema (BLE edema/lymphedema) Gastrointestinal/Abdomen Exam: soft, normal bowel sounds Pelvic Exam: deferred Rectal Exam: deferred Back Exam: normal inspection Extremity Exam: inflammation, pedal edema, swelling (BLE with superimposed cellulitis) Skin Exam: normal color, other (see ext exam) Final Diagnosis/Problem List - Final Discharge Diagnosis/Problem (1) Sepsis Current Visit: Yes Status: Acute (2) UTI (urinary tract infection) Current Visit: Yes Status: Acute Code(s): N39.0 - URINARY TRACT INFECTION, SITE NOT SPECIFIED (3) Acute kidney injury Current Visit: Yes Status: Acute Code(s): N17.9 - ACUTE KIDNEY FAILURE, UNSPECIFIED (4) CHF (congestive heart failure) Current Visit: Yes Status: Acute Code(s): I50.9 - HEART FAILURE, UNSPECIFIED (5) COPD (chronic obstructive pulmonary disease) Current Visit: Yes Status: Acute (6) HTN (hypertension) Current Visit: Yes Status: Acute Code(s): I10 - ESSENTIAL (PRIMARY) HYPERTENSION (7) Lymphedema of both lower extremities Current Visit: No Status: Acute Code(s): I89.0 - LYMPHEDEMA, NOT ELSEWHERE CLASSIFIED (8) Infiltrate noted on imaging study Current Visit: Yes Status: Acute Code(s): R93.89 - ABNORMAL FINDINGS ON DX IMAGING OF OTH BODY STRUCTURES (9) Cellulitis of both lower extremities Current Visit: Yes Status: Acute Code(s): L03.115 - CELLULITIS OF RIGHT LOWER LIMB; L03.116 - CELLULITIS OF LEFT LOWER LIMB - Discharge Disposition: HOME HEALTH SERVICE Condition: Stable Prescriptions: New Cefdinir 300 mg PO BID 7 Days #14 cap Triamcinolone 0.1% Cream [Kenalog 0.1% Cream 15 gm] See Rx Instructions .ROUTE .COMPLEX Furosemide 20 mg [Lasix 20 mg] 20 mg PO DAILY 7 Days #7 tablet Morphine Sulfate Cr 15 mg [Ms Contin 15 MG] 30 mg PO BID tablet Continue Lisinopril 20 mg [Zestril 20 MG] 20 mg PO DAILY Magnesium Oxide 400 mg [Mag-Ox 400] 400 mg PO DAILY Duloxetine HCl 30 mg [Cymbalta 30 MG Capsule] 60 mg PO DAILY Potassium Chloride Tab* [Klor Con] 10 meq PO DAILY Oxycodone / APAP 10/325 mg [Oxycodone-Acetaminophen 10-325] 1 tab QID PRN PRN Reason: Pain Additional Instructions: [facility] HAS BEEN SET UP FOR YOU. THEY WILL CALL YOU TO ARRANGE A TIME TO COME SEE YOU. THEIR PHONE NUMBER IS [phone] IF YOU NEED ANYTHING BEFORE THEIR FIRST VISIT. Follow up with: YOKO SANCHEZ [Primary Care Provider] -
[2023-07-07 13:11] VITALS: PULSE 102; TEMP 97.4
[2023-07-07 13:12] VITALS: BP 126/58
--- NOTE | 2023-07-09 14:23 | ECHO ---
DATE OF PROCEDURE: 07/05/2023 CLINICAL INFORMATION: Congestive heart failure. The M-mode 2D, and Doppler echocardiogram including color flow Doppler shows the heart rate is 119 beats/minute. The left ventricle is normal in size. The wall thickness is normal. There is normal contractility of the left ventricle. The ejection fraction is calculated to be 58%. There is evidence of possible impaired left ventricular relaxation. The right ventricle is not well visualized. The left atrium is normal in size. The interatrial septum is intact. The right atrium is normal. The aortic valve opens well. There is mitral valvular calcification. There is mild tricuspid regurgitation. The right ventricular systolic pressure is calculated to be 22 mm of Mercury. The pulmonic valve is not well visualized. The aortic root is normal. There is no pericardial effusion present. IMPRESSION: 1) NORMAL CONTRACTILITY OF THE LEFT VENTRICLE. 2) POSSIBLE IMPAIRED LEFT VENTRICULAR RELAXATION. 3) TACHYCARDIA. 4) MILD TRICUSPID REGURGITATION. 5) NORMAL RIGHT VENTRICULAR SYSTOLIC PRESSURE.
== END 2023-07-07 12:42 | disposition home health service (06) | DRG 872 ==
LOC: ED 18:05 → MED SURG 22:41
PROVIDERS: ADMIT Internal Medicine Nephrology; ATTEND Internal Medicine Nephrology
DX: A41.9 Sepsis, unspecified organism (principal); N39.0 Urinary tract infection, site not specified; N17.9 Acute kidney failure, unspecified; L03.115 Cellulitis of right lower limb; L03.116 Cellulitis of left lower limb; I11.0 Hypertensive heart disease with heart failure; I50.9 Heart failure, unspecified; J44.9 Chronic obstructive pulmonary disease, unspecified; I89.0 Lymphedema, not elsewhere classified; R93.89 Abnormal findings on diagnostic imaging of other specified body structures; E78.5 Hyperlipidemia, unspecified; Z79.899 Other long term (current) drug therapy; Z20.828 Contact with and (suspected) exposure to other viral communicable diseases
CPT/HCPCS: 36000; 36415; 71045; 80048; 80053; 81001; 83605; 83735; 83880; 84134; 85025; 85027; 87040; 87070; 87077; 87086; 87186; 93306; 96372; 99284; J1650; J1940; J2543; Q3014; A9270-GY

== ENCOUNTER 2025-02-25 17:02 | Inpatient (IN) | payer MEDICARE, OTHER ==
[2025-02-25 17:13] LABS: A-aADO2 80; ABG HEMOGLOBIN 14.4; ABG POTASSIUM 4.7 (3.5-5.1); ABG SITE RIGHT RADIAL; ALLEN TEST OK? YES; ARTERIAL BLD GAS O2 SATURATION 100.0 % (95-100); ARTERIAL BLOOD GAS BASE EXCESS -3.7 (-2.0-2.0); ARTERIAL BLOOD GAS FIO2 40 %; ARTERIAL BLOOD GAS PCO2 25 mmHg (35-45); ARTERIAL BLOOD GAS PO2 174 mmHg (75-100); ARTERIAL BLOOD GAS TEMPERATURE 37.0 C; HCO3- 18.2 (22-28); HGB O2 SAT 96.8 g/dF (94-100); Methhemoglobin 1.3 % (1.4-1.5); paO2 pAO1 0.69
[2025-02-25] MEDS ORDERED: PROVENTIL 2.5 MG/3 ML NEB IH ONE (17:20)
[2025-02-25] MEDS ORDERED: PROVENTIL Solution 2.5 MG/0.5 ML IH ONE (17:23)
[2025-02-25] MEDS: PROVENTIL Solution 2.5 MG/0.5 ML IH SCH (17:24)
--- NOTE | 2025-02-25 17:25 | ERPHSYRPT ---
- History of Present Illness Time Seen by Provider: 02/25/25 17:05 Source: EMS Physician History: Patient arrives with limited history. EMS reports a history of CHF and COPD. They report they are called because of difficulty breathing. Where they found her with increased work of breathing and tachycardia. She given breathing treatment and route. Dex was normal on arrival.Patient arrives tachycardic but unable to give verbal history. Allergies/Adverse Reactions: latex Allergy (Intermediate, Verified 02/25/25 17:10) Blisters erythromycin base Adverse Reaction (Severe, Verified 02/25/25 17:10) Nausea Sulfa (Sulfonamide Antibiotics) Adverse Reaction (Severe, Verified 02/25/25 17:10) Nausea Home Medications: Duloxetine HCl 30 mg [Cymbalta 30 MG Capsule] 60 mg PO DAILY 06/22/15 [History] Lisinopril 20 mg [Zestril 20 MG] 20 mg PO DAILY 06/22/15 [History] Metformin HCl 500 mg [Glucophage 500 MG] 1,000 mg PO DAILY 11/02/24 [History] Oxycodone / APAP 10/325 mg [Oxycodone-Acetaminophen 10-325] 1 tab PO Q6HPRN PRN MDD 6 02/25/25 [History] Sennosides [Senna] 8.6 mg PO DAILY 02/25/25 [History] Tolterodine Tartrate 1 mg PO BID 02/25/25 [History] Gabapentin [Gabarone] 100 mg PO DAILY 02/26/25 [History] Hx Tetanus, Diphtheria Vaccination/Date Given: Yes Hx Influenza Vaccination/Date Given: Yes Hx Pneumococcal Vaccination/Date Given: Yes Travel Risk - Emerging Infectious Disease Are you exhibiting symptoms associated with any current EIDs: No - Review of Systems Constitutional: Other (Patient unable to give history) - Past Medical History Pertinent Past Medical History: Yes Neurological History: No Pertinent History, Other ENT History: No Pertinent History Cardiac History: Congestive Heart Failure, High Cholesterol, Hypertension Respiratory History: COPD Endocrine Medical History: No Pertinent History Musculoskeletal History: Fibromyalgia, Osteoarthritis GI Medical History: GERD, Hernia History: No Pertinent History Psycho-Social History: Anxiety, Depression Female Reproductive Disorders: Fibroids, Other Other Medical History: depression. cellulitis in bilateral lower legs - Past Surgical History Past Surgical History: Yes Neuro Surgical History: No Pertinent History Cardiac: No Pertinent History Respiratory: No Pertinent History Gastrointestinal: No Pertinent History Genitourinary: No Pertinent History Musculoskeletal: No Pertinent History Female Surgical History: Other Other Surgical History: D&C, dental extractions, EGD - Social History Drug Use: none - Social Determinants of Health Will the patient participate in the screening: Declined to provide Do you worry about a steady place to live?: No In the past 12 months,have you had to go without utilities?: No Transportation Issues: No Has anyone in your support network made you feel unsafe?: No Have you or anyone in your house had to go w/o enough food: No - Nursing Vital Signs Nursing Vital Signs: Initial Vital Signs Temperature 104.2 F 02/25/25 17:06 Pulse Rate 139 H 02/25/25 17:06 Respiratory Rate 27 H 02/25/25 17:06 Blood Pressure 111/81 02/25/25 17:06 O2 Sat by Pulse Oximetry 100 02/25/25 17:06 Pain Scale Pain Intensity 2 - Physical Exam General Appearance: other (Patient arrives tachypneic and tachycardic. Responding to pain and following some basic commands but not verbally responding) Eye Exam: PERRL/EOMI Ears, Nose, Throat Exam: normal ENT inspection Respiratory Exam: other (Tachypneic, slightly diminished bilaterally, lower extremity edema) Cardiovascular Exam: capillary refill 2-3 sec, other (130) Extremity Exam: other (Significant bilateral swelling with erythema warmth and redness of the right inner thigh and leg) Neurologic Exam: other (Patient is awake. [place] squeeze to command. Not verbally responsive to name or events. She has a gag reflex. Tachypneic.) SpO2 Interpretation: normal Ordered Tests: Medication Summary Discontinued Medications Generic Name Dose Route Start Last Admin Trade Name Freq PRN Reason Stop Dose Admin Acetaminophen Confirm 02/26/25 21:05 Acetaminophen 325 Mg Tablet Administered 02/26/25 21:06 Dose 650 mg .ROUTE .STK-MED ONE Acetaminophen 650 mg 02/26/25 21:00 02/27/25 21:52 Acetaminophen 325 Mg Tablet PO 03/28/25 20:59 650 mg Q6H PRN PRN Administration PAIN AND/OR FEVER Albuterol Sulfate 5 mg 02/25/25 17:15 02/25/25 17:24 Albuterol Solution 2.5 Mg/0.5 Ml Ud Solution IH 03/27/25 17:14 5 mg UD ERNESTINA Administration Albuterol Sulfate Confirm 02/25/25 17:20 Albuterol Sulfate 2.5 Mg/3 Ml Neb Administered 02/25/25 17:21 Dose 2.5 mg IH .STK-MED ONE Albuterol Sulfate Confirm 02/25/25 17:23 Albuterol Solution 2.5 Mg/0.5 Ml Ud Solution Administered 02/25/25 17:24 Dose 5 mg IH .STK-MED ONE Albuterol Sulfate 4 puff 02/26/25 19:00 Albuterol Common Canister Inhaler IH 03/28/25 18:59 BIDRT ERNESTINA Albuterol Sulfate 4 puff 02/26/25 07:04 Albuterol Common Canister Inhaler IH 03/28/25 07:03 Q4H PRN PRN SHORTNESS OF BREATH/WHEEZING Albuterol/Ipratropium 3 ml 02/26/25 13:00 02/27/25 18:39 Ipratropium/Albuterol Sulfate 3 Ml Ampul.Neb IH 03/28/25 12:59 Not Given Q6HRT ERNESTINA Chlorphenir/Hydrocodone Polistirex 5 ml 02/26/25 07:04 Hydrocodone/Chlorphen P-Stirex 1 Ml Eryn.Er.12h PO 03/28/25 07:03 [id number] PRN COUGH Methylprednisolone Sodium 0 mg 02/25/25 17:09 02/25/25 17:37 Succinate 125 mg/ Sterile IV 02/25/25 17:10 125 mg Water 2 ml STAT ONE Administration Device 1 02/28/25 09:30 02/28/25 10:00 Therapuetic Drug Level Monitor Each IJ 02/28/25 09:31 1 1XONLY ONE Administration Dexamethasone Sodium Phosphate 6 mg 02/26/25 10:00 03/01/25 10:50 Dexamethasone Sod Phosphate 10 Mg/Ml IV 03/07/25 10:01 6 mg DAILY ERNESTINA Administration Duloxetine HCl 60 mg 02/26/25 10:00 03/01/25 10:50 Duloxetine Hcl 30 Mg Cap PO 03/28/25 09:59 60 mg DAILY ERNESTINA Administration Enoxaparin Sodium 40 mg 02/26/25 10:00 Enoxaparin Sodium 40 Mg/0.4 Ml Syringe SQ 03/28/25 09:59 DAILY ERNESTINA Enoxaparin Sodium 30 mg 02/26/25 10:00 Enoxaparin Sodium 30 Mg/0.3 Ml Syringe SQ 03/28/25 09:59 DAILY [facility] Furosemide 80 mg 02/26/25 10:00 Furosemide 100 Mg/10 Ml Vial IV 03/28/25 09:59 DAILY [facility] Heparin Sodium (Beef Lung) 5,000 unit 02/26/25 14:00 03/01/25 16:09 Heparin 5000 Units/0.5 Ml 5,000 Unit/0.5 Ml Syr SQ 03/28/25 13:59 Not Given Q8HT ERNESTINA Sodium Chloride 1,000 mls @ 999 mls/hr 02/25/25 17:45 02/25/25 20:03 Sodium Chloride 0.9% 1000 Ml IV 02/25/25 19:45 Infused .Q1H1M ERNESTINA Infusion Piperacillin Sod/Tazobactam 100 mls @ 200 mls/hr 02/25/25 17:42 02/25/25 18:43 Sod 4.5 gm/ Sodium Chloride IV 02/25/25 18:11 Infused STAT STA Infusion Vancomycin HCl 2 gm in 400 mls @ 133.333 mls/hr 02/25/25 17:42 02/25/25 18:29 Vancomycin 2 Gram/400 Ml Bag IV 02/25/25 20:41 133.33 mls/hr STAT ONE 133.33 mls/hr Administration Acetaminophen 100 mls @ 400 mls/hr 02/25/25 17:47 02/25/25 18:23 Ofirmev IV 02/25/25 18:01 Infused STAT ONE Infusion Acetaminophen Confirm 02/25/25 17:48 Ofirmev Administered 02/25/25 17:49 Dose 100 mls @ ud IV .STK-MED ONE Sodium Chloride Confirm 02/25/25 18:10 Sodium Chloride 0.9% Administered 02/25/25 18:11 Dose 100 mls @ ud .ROUTE .STK-MED ONE Vancomycin HCl Confirm 02/25/25 18:28 Vancomycin 2 Gram/400 Ml Bag Administered 02/25/25 18:29 Dose 2 gm in 400 mls @ ud IV .STK-MED ONE Sodium Chloride Confirm 02/25/25 18:06 Sodium Chloride 0.9% 1000 Ml Administered 02/25/25 18:07 Dose 1,000 mls @ ud .ROUTE .STK-MED ONE Sodium Chloride Confirm 02/25/25 18:44 Sodium Chloride 0.9% 1000 Ml Administered 02/25/25 18:45 Dose 1,000 mls @ ud .ROUTE .STK-MED ONE Sodium Chloride Confirm 02/26/25 00:43 Sodium Chloride 0.9% 1000 Ml Administered 02/26/25 00:44 Dose 1,000 mls @ ud .ROUTE .STK-MED ONE Sodium Chloride 1,000 mls @ 100 mls/hr 02/26/25 01:00 02/26/25 00:51 Sodium Chloride 0.9% 1000 Ml IV 03/28/25 00:59 100 mls/hr .Q10H ERNESTINA Administration Remdesivir 100 mg/ Sodium 100 mls @ 100 mls/hr 02/27/25 07:15 Chloride IV 03/02/25 08:14 Q24H ERNESTINA Remdesivir 200 mg/ Sodium 250 mls @ 125 mls/hr 02/26/25 07:04 02/28/25 08:45 Chloride IV 02/26/25 09:03 Not Given ONCE ONE Remdesivir 100 mg/ Sodium 100 mls @ 100 mls/hr 02/27/25 09:00 03/01/25 10:50 Chloride IV 03/02/25 09:59 100 mls/hr DAILY@0900 ERNESTINA Administration Remdesivir 200 mg/ Sodium 250 mls @ 125 mls/hr 02/26/25 09:00 02/26/25 09:36 Chloride IV 02/26/25 10:59 125 mls/hr ONCE ONE Administration Piperacillin Sod/Tazobactam 100 mls @ 200 mls/hr 02/26/25 08:00 02/28/25 06:01 Sod 4.5 gm/ Sodium Chloride IV 03/28/25 07:59 200 mls/hr Q8HT ERNESTINA Administration Vancomycin HCl 1.25 gm in 250 mls @ 150 mls/hr 02/26/25 10:00 02/28/25 10:53 Vancomycin 1.25 Gm/250 Ml Bag IV 03/01/25 09:59 Not Given DAILY ERNESTINA Levofloxacin/Dextrose 750 mg in 150 mls @ 100 mls/hr 02/28/25 10:00 02/28/25 11:46 Levofloxacin 750mg/150ml D5w IV 03/30/25 09:59 100 mls/hr Q48H ERNESTINA Administration Insulin Human Lispro 0 unit 02/26/25 07:04 02/26/25 12:04 Insulin Lispro 1 Unit SQ 03/28/25 07:03 7 unit UD PRN Administration HYPERGLYCEMIA Insulin Human Lispro 0 unit 02/26/25 13:33 03/01/25 13:23 Insulin Lispro 1 Unit SQ 03/28/25 13:32 10 unit UD PRN Administration HYPERGLYCEMIA Methylprednisolone Sodium Succinate Confirm 02/25/25 17:35 Methylprednis Sod Succ 125 Mg/2 Ml Vial Administered 02/25/25 17:36 Dose 125 mg .ROUTE .STK-MED ONE Methylprednisolone Sodium Succinate Confirm 02/25/25 17:36 Methylprednis Sod Succ 125 Mg/2 Ml Vial Administered 02/25/25 17:37 Dose 125 mg .ROUTE .STK-MED ONE Non-Formulary Medication 1 each 02/26/25 07:04 02/28/25 08:44 Pharmacy Dosing Request 02/26/25 07:05 Not Given STAT ONE Non-Formulary Medication 1 each 02/28/25 10:07 02/28/25 11:47 Pharmacy Dosing Request 02/28/25 10:08 1 each STAT ONE Administration Nystatin 1 gm 02/26/25 10:00 03/01/25 10:51 Nystatin 15 Gm Powder TP 03/28/25 09:59 1 gm BID ERNESTINA Administration Ondansetron HCl 4 mg 02/26/25 07:04 Ondansetron Hcl 4 Mg/2 Ml Vial IV 03/28/25 07:03 Q6H PRN PRN NAUSEA/VOMITING Oxycodone/Acetaminophen 1 tab 02/26/25 09:03 03/01/25 11:03 Oxycodone / Apap 10/325 Mg 1 Tablet PO 03/03/25 09:02 1 tab Q6HPRN PRN Administration PAIN Pantoprazole Sodium 40 mg 02/26/25 10:00 Pantoprazole 40 Mg Vial IV 03/28/25 09:59 Q24H10 ERNESTINA Pantoprazole Sodium 40 mg 02/26/25 10:00 03/01/25 10:50 Protonix (Pantoprazole) 40 Mg Tablet PO 03/28/25 09:59 40 mg DAILY ERNESTINA Administration Piperacillin Sod/Tazobactam Sod Confirm 02/25/25 18:10 Piperacillin/Tazobactam Sodium 4.5 Gm Vial Administered 02/25/25 18:11 Dose 4.5 gm IV .STK-MED ONE Sterile Water Confirm 02/25/25 17:36 Water For Injection,Sterile 10 Ml Vial Administered 02/25/25 17:37 Dose 10 ml IJ .STK-MED ONE Lab/Rad Data: Laboratory Result Diagrams 02/25/25 18:08 02/25/25 18:08 Laboratory Results 02/25/25 02/25/25 02/25/25 Range/Units 19:56 18:12 18:08 WBC (3.98-10.04) x10^3/uL RBC (3.93-5.22) x10^6/uL Hgb (11.2-15.7) g/dL Hct (34.1-44.9) % MCV (79.4-94.8) fL MCH (25.6-32.2) pg MCHC (32.2-35.5) g/dL RDW (11.7-14.4) % Plt Count (182-369) x10^3/uL MPV (9.4-12.3) fL Segmented Neutrophils (34.0-71.1) % Band Neutrophils (0.0-2.0) % Lymphocytes (Manual) (19.3-51.7) % Monocytes (Manual) (4.7-12.5) % Platelet Estimate (NORMAL) RBC Morphology PT (9.4-12.5) SECONDS INR (0.8-3.0) APTT (25.1-36.5) SECONDS Puncture Site pCO2 (35-45) mmHg pO2 (75-100) mmHg Base Excess (-2.0-2.0) O2 Saturation (94-100) g/dF ABG pH (7.35-7.45) ABG HCO3 (22-28) ABG O2 Sat (Measured) (95-100) % Ryan Test A-a Gradient a/A Ratio Hemoglobin Carboxyhemoglobin (0.0-6.9) % THgb Methemoglobin (1.4-1.5) % Potassium (3.5-5.1) Temperature C POC O2 Flow Rate % Sodium (135-145) mmol/L Chloride (98-107) mmol/L Carbon Dioxide (22-30) mmol/L Anion Gap (5-15) MEQ/L BUN (7-17) mg/dL Creatinine (0.52-1.04) mg/dL Estimated GFR ML/MIN Glucose (74-106) mg/dL POC Glucometer (74 to 106) mg/dL Lactic Acid 2.2 H (0.4-2.0) Calcium (8.4-10.2) mg/dL Total Bilirubin (0.2-1.3) mg/dL AST (14-36) U/L ALT (0-35) U/L Alkaline Phosphatase (38-126) U/L Troponin I 0.018 (0.000-0.033) ng/mL NT-Pro-B Natriuret Pep 856 (<300) pg/mL Serum Total Protein (6.3-8.2) g/dL Albumin (3.5-5.0) g/dL Procalcitonin (0.030-0.080) ng/mL Urine Color (Yellow) Urine Appearance (Clear) Urine pH (4.6-8.0) Ur Specific [place] (1.005-1.030) Urine Protein (Negative) Urine Glucose (UA) (Negative) mg/dL Urine Ketones (Negative) Urine Blood (Negative) Urine Nitrite (Negative) Urine Bilirubin (Negative) Urine Urobilinogen (0.2) mg/dL Ur Leukocyte Esterase (Negative) U Hyaline Cast (Auto) (0-2) /LPF Urine Microscopic RBC (0-5) /HPF Urine Microscopic WBC (0-5) /HPF Ur Epithelial Cells (None Seen) /HPF Urine Bacteria (None Seen) /HPF Urine Culture Reflexed (NO) Acetaminophen (10-30) ug/ml Influenza Type A Ag NEGATIVE (NEGATIVE) Influenza Type B Ag NEGATIVE (NEGATIVE) RSV (PCR) NEGATIVE (NEGATIVE) SARS-CoV-2 (PCR) POSITIVE A (NEGATIVE) 02/25/25 02/25/25 02/25/25 Range/Units 18:08 18:08 17:54 WBC 27.7 H* (3.98-10.04) x10^3/uL RBC 5.38 H (3.93-5.22) x10^6/uL Hgb 13.5 (11.2-15.7) g/dL Hct 43.7 (34.1-44.9) % MCV 81.2 (79.4-94.8) fL MCH 25.1 L (25.6-32.2) pg MCHC 30.9 L (32.2-35.5) g/dL RDW 13.3 (11.7-14.4) % Plt Count 172 L (182-369) x10^3/uL MPV 10.5 (9.4-12.3) fL Segmented Neutrophils 90 H (34.0-71.1) % Band Neutrophils 2 (0.0-2.0) % Lymphocytes (Manual) 4 L (19.3-51.7) % Monocytes (Manual) 4 L (4.7-12.5) % Platelet Estimate NORMAL (NORMAL) RBC Morphology NORMAL PT (9.4-12.5) SECONDS INR (0.8-3.0) APTT (25.1-36.5) SECONDS Puncture Site pCO2 (35-45) mmHg pO2 (75-100) mmHg Base Excess (-2.0-2.0) O2 Saturation (94-100) g/dF ABG pH (7.35-7.45) ABG HCO3 (22-28) ABG O2 Sat (Measured) (95-100) % Ryan Test A-a Gradient a/A Ratio Hemoglobin Carboxyhemoglobin (0.0-6.9) % THgb Methemoglobin (1.4-1.5) % Potassium 4.5 (3.5-5.1) Temperature C POC O2 Flow Rate % Sodium 132 L (135-145) mmol/L Chloride 104 (98-107) mmol/L Carbon Dioxide 15 L* (22-30) mmol/L Anion Gap 17.5 H (5-15) MEQ/L BUN 19 H (7-17) mg/dL Creatinine 1.34 H (0.52-1.04) mg/dL Estimated GFR 41.9 ML/MIN Glucose 256 H (74-106) mg/dL POC Glucometer (74 to 106) mg/dL Lactic Acid (0.4-2.0) Calcium 9.2 (8.4-10.2) mg/dL Total Bilirubin 1.90 H (0.2-1.3) mg/dL AST 19 (14-36) U/L ALT 16 (0-35) U/L Alkaline Phosphatase 106 (38-126) U/L Troponin I (0.000-0.033) ng/mL NT-Pro-B Natriuret Pep (<300) pg/mL Serum Total Protein 6.7 (6.3-8.2) g/dL Albumin 3.8 (3.5-5.0) g/dL Procalcitonin 2.150 H* (0.030-0.080) ng/mL Urine Color Yellow (Yellow) Urine Appearance Clear (Clear) Urine pH 6.5 (4.6-8.0) Ur Specific [place] 1.020 (1.005-1.030) Urine Protein 30 (Negative) Urine Glucose (UA) Negative (Negative) mg/dL Urine Ketones 15 A (Negative) Urine Blood Negative (Negative) Urine Nitrite Negative (Negative) Urine Bilirubin Negative (Negative) Urine Urobilinogen 1.0 A (0.2) mg/dL Ur Leukocyte Esterase Negative (Negative) U Hyaline Cast (Auto) 3-5 A (0-2) /LPF Urine Microscopic RBC 0-2 (0-5) /HPF Urine Microscopic WBC 3-5 (0-5) /HPF Ur Epithelial Cells None Seen (None Seen) /HPF Urine Bacteria None Seen (None Seen) /HPF Urine Culture Reflexed NO (NO) Acetaminophen 26 (10-30) ug/ml Influenza Type A Ag (NEGATIVE) Influenza Type B Ag (NEGATIVE) RSV (PCR) (NEGATIVE) SARS-CoV-2 (PCR) (NEGATIVE) 02/25/25 02/25/25 02/25/25 Range/Units 17:20 17:10 17:06 WBC (3.98-10.04) x10^3/uL RBC (3.93-5.22) x10^6/uL Hgb (11.2-15.7) g/dL Hct (34.1-44.9) % MCV (79.4-94.8) fL MCH (25.6-32.2) pg MCHC (32.2-35.5) g/dL RDW (11.7-14.4) % Plt Count (182-369) x10^3/uL MPV (9.4-12.3) fL Segmented Neutrophils (34.0-71.1) % Band Neutrophils (0.0-2.0) % Lymphocytes (Manual) (19.3-51.7) % Monocytes (Manual) (4.7-12.5) % Platelet Estimate (NORMAL) RBC Morphology PT 12.1 (9.4-12.5) SECONDS INR 1.12 (0.8-3.0) APTT 22.6 L (25.1-36.5) SECONDS Puncture Site RIGHT RADIAL pCO2 25 L (35-45) mmHg pO2 174 H* (75-100) mmHg Base Excess -3.7 L (-2.0-2.0) O2 Saturation 96.8 (94-100) g/dF ABG pH 7.47 H (7.35-7.45) ABG HCO3 18.2 L (22-28) ABG O2 Sat (Measured) 100.0 (95-100) % Ryan Test YES A-a Gradient 80 a/A Ratio 0.69 Hemoglobin 14.4 Carboxyhemoglobin 1.8 (0.0-6.9) % THgb Methemoglobin 1.3 L (1.4-1.5) % Potassium 4.7 (3.5-5.1) Temperature 37.0 C POC O2 Flow Rate 40 % Sodium (135-145) mmol/L Chloride (98-107) mmol/L Carbon Dioxide (22-30) mmol/L Anion Gap (5-15) MEQ/L BUN (7-17) mg/dL Creatinine (0.52-1.04) mg/dL Estimated GFR ML/MIN Glucose (74-106) mg/dL POC Glucometer (74 to 106) mg/dL Lactic Acid 2.1 H (0.4-2.0) Calcium (8.4-10.2) mg/dL Total Bilirubin (0.2-1.3) mg/dL AST (14-36) U/L ALT (0-35) U/L Alkaline Phosphatase (38-126) U/L Troponin I (0.000-0.033) ng/mL NT-Pro-B Natriuret Pep (<300) pg/mL Serum Total Protein (6.3-8.2) g/dL Albumin (3.5-5.0) g/dL Procalcitonin (0.030-0.080) ng/mL Urine Color (Yellow) Urine Appearance (Clear) Urine pH (4.6-8.0) Ur Specific [place] (1.005-1.030) Urine Protein (Negative) Urine Glucose (UA) (Negative) mg/dL Urine Ketones (Negative) Urine Blood (Negative) Urine Nitrite (Negative) Urine Bilirubin (Negative) Urine Urobilinogen (0.2) mg/dL Ur Leukocyte Esterase (Negative) U Hyaline Cast (Auto) (0-2) /LPF Urine Microscopic RBC (0-5) /HPF Urine Microscopic WBC (0-5) /HPF Ur Epithelial Cells (None Seen) /HPF Urine Bacteria (None Seen) /HPF Urine Culture Reflexed (NO) Acetaminophen (10-30) ug/ml Influenza Type A Ag (NEGATIVE) Influenza Type B Ag (NEGATIVE) RSV (PCR) (NEGATIVE) SARS-CoV-2 (PCR) (NEGATIVE) 02/25/25 Range/Units 17:06 WBC (3.98-10.04) x10^3/uL RBC (3.93-5.22) x10^6/uL Hgb (11.2-15.7) g/dL Hct (34.1-44.9) % MCV (79.4-94.8) fL MCH (25.6-32.2) pg MCHC (32.2-35.5) g/dL RDW (11.7-14.4) % Plt Count (182-369) x10^3/uL MPV (9.4-12.3) fL Segmented Neutrophils (34.0-71.1) % Band Neutrophils (0.0-2.0) % Lymphocytes (Manual) (19.3-51.7) % Monocytes (Manual) (4.7-12.5) % Platelet Estimate (NORMAL) RBC Morphology PT (9.4-12.5) SECONDS INR (0.8-3.0) APTT (25.1-36.5) SECONDS Puncture Site pCO2 (35-45) mmHg pO2 (75-100) mmHg Base Excess (-2.0-2.0) O2 Saturation (94-100) g/dF ABG pH (7.35-7.45) ABG HCO3 (22-28) ABG O2 Sat (Measured) (95-100) % Ryan Test A-a Gradient a/A Ratio Hemoglobin Carboxyhemoglobin (0.0-6.9) % THgb Methemoglobin (1.4-1.5) % Potassium (3.5-5.1) Temperature C POC O2 Flow Rate % Sodium (135-145) mmol/L Chloride (98-107) mmol/L Carbon Dioxide (22-30) mmol/L Anion Gap (5-15) MEQ/L BUN (7-17) mg/dL Creatinine (0.52-1.04) mg/dL Estimated GFR ML/MIN Glucose (74-106) mg/dL POC Glucometer 233 H (74 to 106) mg/dL Lactic Acid (0.4-2.0) Calcium (8.4-10.2) mg/dL Total Bilirubin (0.2-1.3) mg/dL AST (14-36) U/L ALT (0-35) U/L Alkaline Phosphatase (38-126) U/L Troponin I (0.000-0.033) ng/mL NT-Pro-B Natriuret Pep (<300) pg/mL Serum Total Protein (6.3-8.2) g/dL Albumin (3.5-5.0) g/dL Procalcitonin (0.030-0.080) ng/mL Urine Color (Yellow) Urine Appearance (Clear) Urine pH (4.6-8.0) Ur Specific [place] (1.005-1.030) Urine Protein (Negative) Urine Glucose (UA) (Negative) mg/dL Urine Ketones (Negative) Urine Blood (Negative) Urine Nitrite (Negative) Urine Bilirubin (Negative) Urine Urobilinogen (0.2) mg/dL Ur Leukocyte Esterase (Negative) U Hyaline Cast (Auto) (0-2) /LPF Urine Microscopic RBC (0-5) /HPF Urine Microscopic WBC (0-5) /HPF Ur Epithelial Cells (None Seen) /HPF Urine Bacteria (None Seen) /HPF Urine Culture Reflexed (NO) Acetaminophen (10-30) ug/ml Influenza Type A Ag (NEGATIVE) Influenza Type B Ag (NEGATIVE) RSV (PCR) (NEGATIVE) SARS-CoV-2 (PCR) (NEGATIVE) - Progress Progress: improved Progress Note: 02/25/25 17:27 EKG reveals sinus tachycardia rate of 134.Blood gas was reviewed patient was not tachycardic and had no CO2 retention. With her history of COPD and CHF respiratory difficulty she was initially started on BiPAP.Prior to return against 02/25/25 19:34 Patient was reevaluated multiple times. At 1930 she is more alert and oriented. She knows at the hospital and she is with her daughter. Following commands. Taken off BiPAP at this time. Her heart rate is coming down. She still remains febrile. To cellulitis of her lower extremityMultiple attempts have been made to contact the hospitalist over the last hour with no callback. 03/03/25 22:12 Callback from hospitalist team excepting for the management here at the facility. Patient updated on treatment plan. Alert oriented x 3 on repeat exam. - Departure Departure Disposition: Transfer (Area) Clinical Impression: Sepsis, Cellulitis Condition: Fair Critical Care Time: Yes Critical Care Time(excluding separately billable procedures): Critical 30-74 mins
[2025-02-25] MEDS ORDERED: Sterile H2O 10 ml IJ ONE (17:36)
[2025-02-25] MEDS: solu-MEDROL 125 MG, Sterile H2O 10 ml 2 ML IV ONE (17:37)
[2025-02-25] MEDS ORDERED: OFIRMEV 100 ML IV ONE (17:48)
[2025-02-25] MEDS: OFIRMEV 100 ML IV ONE (17:49)
[2025-02-25] MEDS ORDERED: PIPERACILLIN/TAZOBACTAM IV ONE (18:10)
[2025-02-25 18:14] LABS: Hematocrit 43.7 % (34.1-44.9); Hemoglobin 13.5 g/dL (11.2-15.7); Mean Corpuscular Hemoglobin 25.1 pg (25.6-32.2); Mean Corpuscular Hgb Concent. 30.9 g/dL (32.2-35.5); Platelet Count 172 x10^3/uL (182-369); Red Blood Count 5.38 x10^6/uL (3.93-5.22)
[2025-02-25 18:23] LABS: White Blood Count 27.7 x10^3/uL (3.98-10.04)
[2025-02-25] MEDS ORDERED: VANCOMYCIN 2 GRAM/400 ML BAG 2 GM/400 ML PIGGYBACK IV ONE (18:28)
[2025-02-25] MEDS: VANCOMYCIN 2 GRAM/400 ML BAG 2 GM/400 ML PIGGYBACK IV ONE (18:29)
[2025-02-25 18:37] LABS: Glucose, Urine Negative (Negative); Protein,Urine Dip 30 (Negative); RBC 0-2 /HPF (0-5)
[2025-02-25 18:40] LABS: INR 1.12 (0.8-3.0); PROTIME 12.1 SECONDS (9.4-12.5); PTT 22.6 SECONDS (25.1-36.5)
[2025-02-25 18:41] LABS: NT PRO BNPII 856.0 pg/mL (<300); TROPONIN 0.018 ng/mL (0.000-0.033)
[2025-02-25 18:46] LABS: Calcium 9.2 mg/dL (8.4-10.2); Creatinine 1 1.34 mg/dL (0.52-1.04); EST GLOMERULAR FILTRATION RATE 41.9 ML/MIN; Glucose 256.0 mg/dL (74-106); Potassium 4.5 mmol/L (3.5-5.1); SGOT/AST 19.0 U/L (14-36); SGPT/ALT 16.0 U/L (0-35); Total Protein 6.7 g/dL (6.3-8.2)
[2025-02-25 18:49] LABS: Carbon Dioxide 15.0 mmol/L (22-30)
[2025-02-25 19:06] LABS: INFLUENZA A NEGATIVE (NEGATIVE); INFLUENZA B NEGATIVE (NEGATIVE); RESPIRATORY SYNCTIAL VIRUS NEGATIVE (NEGATIVE); SARS-CoV-2 Xpert Express POSITIVE (NEGATIVE)
[2025-02-25 19:22] LABS: BAND 2 % (0.0-2.0); Total Cells Counted 100
[2025-02-26] MEDS: NYSTOP POWDER 15 GM TP SCH (00:51)
--- NOTE | 2025-02-26 01:02 | PCM.HP ---
History of Present Illness - Chief Complaint Chief Complaint: sepsis, covid History of Present Illness: is a 74 year old female. Medications & Allergies Home Medications: Home Medication List Duloxetine HCl 30 mg [Cymbalta 30 MG Capsule] 60 mg PO DAILY 06/22/15 [History Confirmed 02/25/25] Lisinopril 20 mg [Zestril 20 MG] 20 mg PO DAILY 06/22/15 [History Confirmed 02/25/25] Furosemide 20 mg [Lasix 20 mg] 20 mg PO DAILY 7 Days #7 tablet 07/07/23 [Rx Confirmed 02/25/25] Metformin HCl 500 mg [Glucophage 500 MG] 1,000 mg PO BIDWM 11/02/24 [History Confirmed 02/25/25] Gabapentin [Neurontin ] 100 mg PO TID 30 Days #90 cap 11/06/24 [Rx Confirmed 02/25/25] Oxycodone / APAP 10/325 mg [Oxycodone-Acetaminophen 10-325] 1 tab PO Q6HPRN PRN MDD 6 02/25/25 [History Confirmed 02/25/25] Sennosides [Senna] 8.6 mg PO DAILY 02/25/25 [History Confirmed 02/25/25] Tolterodine Tartrate 1 mg PO BID 02/25/25 [History Confirmed 02/25/25] Allergies/Adverse Reactions: Allergies Allergy/AdvReac Type Severity Reaction Status Date / Time latex Allergy Intermediate Blisters Verified 02/25/25 17:10 erythromycin base AdvReac Severe Nausea Verified 02/25/25 17:10 Sulfa (Sulfonamide AdvReac Severe Nausea Verified 02/25/25 17:10 Antibiotics) - Past Medical History Past Medical History: Yes Neurological History: No Pertinent History, Other ENT History: No Pertinent History Cardiac History: Congestive Heart Failure, High Cholesterol, Hypertension Respiratory History: COPD Endocrine Medical History: No Pertinent History Musculoskelatal History: Fibromyalgia, Osteoarthritis GI Medical History: GERD, Hernia History: No Pertinent History Pyscho-Social History: Anxiety, Depression Reproductive Disorders: Fibroids, Other Comment: depression. cellulitis in bilateral lower legs - Past Surgical History Past Surgical History: Yes Neuro Surgical History: No Pertinent History Cardiac History: No Pertinent History Respiratory Surgery: No Pertinent History GI Surgical History: No Pertinent History Genitourinary Surgical Hx: No Pertinent History Musculskeletal Surgical Hx: No Pertinent History Female Surgical History: Other Other Surgical History: D&C, dental extractions, EGD - Social History Smoking Status: Unknown if ever smoked Exposure to second hand smoke: No Alcohol: None Drug Use: none - Social Determinants of Health Will the patient participate in the screening: Unable to obtain Do you worry about a steady place to live?: No In the past 12 months,have you had to go without utilities?: No Have you or anyone in your house had to go without enough: No Transportation Issues: No Has anyone in your support network made you feel unsafe?: No Does the patient want assistance with any of the above?: No - Physical Exam Vital Signs: Vital Signs - 24 hr Temp Pulse Resp BP BP Pulse Ox 02/26/25 00:00 105 H 02/25/25 22:29 100.1 F 109 H 22 123/85 93 L 02/25/25 20:53 100.6 F 109 H 24 151/108 97 02/25/25 20:50 100.8 F 109 H 25 H 96 02/25/25 20:40 100.9 F 112 H 26 H 97 02/25/25 20:39 100.9 F 111 H 25 H 96 02/25/25 20:31 100.9 F 114 H 21 195/89 97 02/25/25 20:19 113 H 22 93 L 02/25/25 20:09 95 02/25/25 20:00 101.5 F 115 H 16 155/75 94 L 02/25/25 19:31 101.7 F 115 H 24 170/70 95 02/25/25 19:01 102.7 F 126 H 28 H 125/87 98 02/25/25 18:30 103.5 F 128 H 26 H 148/97 98 02/25/25 18:19 104.4 F 128 H 32 H 126/86 100 02/25/25 18:18 104.4 F 132 H 22 100 02/25/25 18:10 104.5 F 132 H 31 H 100 02/25/25 18:00 104.4 F 132 H 29 H 100 02/25/25 17:50 104.0 F 139 H 23 100 02/25/25 17:48 103.8 F 139 H 27 H 100 02/25/25 17:47 138 H 36 H 98 02/25/25 17:06 104.2 F 139 H 27 H 111/81 100 Results - Labs Lab/Micro Results: Lab Results-Last 24 Hours 02/25/25 02/25/25 02/25/25 Range/Units 17:06 17:06 17:10 WBC (3.98-10.04) x10^3/uL RBC (3.93-5.22) x10^6/uL Hgb (11.2-15.7) g/dL Hct (34.1-44.9) % MCV (79.4-94.8) fL MCH (25.6-32.2) pg MCHC (32.2-35.5) g/dL RDW (11.7-14.4) % Plt Count (182-369) x10^3/uL MPV (9.4-12.3) fL Segmented Neutrophils (34.0-71.1) % Band Neutrophils (0.0-2.0) % Lymphocytes (Manual) (19.3-51.7) % Monocytes (Manual) (4.7-12.5) % Platelet Estimate (NORMAL) RBC Morphology PT 12.1 (9.4-12.5) SECONDS INR 1.12 (0.8-3.0) APTT 22.6 L (25.1-36.5) SECONDS Puncture Site RIGHT RADIAL pCO2 25 L (35-45) mmHg pO2 174 H* (75-100) mmHg Base Excess -3.7 L (-2.0-2.0) O2 Saturation 96.8 (94-100) g/dF ABG pH 7.47 H (7.35-7.45) ABG HCO3 18.2 L (22-28) ABG O2 Sat (Measured) 100.0 (95-100) % Ryan Test YES A-a Gradient 80 a/A Ratio 0.69 Hemoglobin 14.4 Carboxyhemoglobin 1.8 (0.0-6.9) % THgb Methemoglobin 1.3 L (1.4-1.5) % Potassium 4.7 (3.5-5.1) Temperature 37.0 C POC O2 Flow Rate 40 % Sodium (135-145) mmol/L Chloride (98-107) mmol/L Carbon Dioxide (22-30) mmol/L Anion Gap (5-15) MEQ/L BUN (7-17) mg/dL Creatinine (0.52-1.04) mg/dL Estimated GFR ML/MIN Glucose (74-106) mg/dL POC Glucometer 233 H (74 to 106) mg/dL Lactic Acid (0.4-2.0) Calcium (8.4-10.2) mg/dL Total Bilirubin (0.2-1.3) mg/dL AST (14-36) U/L ALT (0-35) U/L Alkaline Phosphatase (38-126) U/L Troponin I (0.000-0.033) ng/mL NT-Pro-B Natriuret Pep (<300) pg/mL Serum Total Protein (6.3-8.2) g/dL Albumin (3.5-5.0) g/dL Procalcitonin (0.030-0.080) ng/mL Urine Color (Yellow) Urine Appearance (Clear) Urine pH (4.6-8.0) Ur Specific [place] (1.005-1.030) Urine Protein (Negative) Urine Glucose (UA) (Negative) mg/dL Urine Ketones (Negative) Urine Blood (Negative) Urine Nitrite (Negative) Urine Bilirubin (Negative) Urine Urobilinogen (0.2) mg/dL Ur Leukocyte Esterase (Negative) U Hyaline Cast (Auto) (0-2) /LPF Urine Microscopic RBC (0-5) /HPF Urine Microscopic WBC (0-5) /HPF Ur Epithelial Cells (None Seen) /HPF Urine Bacteria (None Seen) /HPF Urine Culture Reflexed (NO) Acetaminophen (10-30) ug/ml Influenza Type A Ag (NEGATIVE) Influenza Type B Ag (NEGATIVE) RSV (PCR) (NEGATIVE) SARS-CoV-2 (PCR) (NEGATIVE) 02/25/25 02/25/25 02/25/25 Range/Units 17:20 17:54 18:08 WBC 27.7 H* (3.98-10.04) x10^3/uL RBC 5.38 H (3.93-5.22) x10^6/uL Hgb 13.5 (11.2-15.7) g/dL Hct 43.7 (34.1-44.9) % MCV 81.2 (79.4-94.8) fL MCH 25.1 L (25.6-32.2) pg MCHC 30.9 L (32.2-35.5) g/dL RDW 13.3 (11.7-14.4) % Plt Count 172 L (182-369) x10^3/uL MPV 10.5 (9.4-12.3) fL Segmented Neutrophils 90 H (34.0-71.1) % Band Neutrophils 2 (0.0-2.0) % Lymphocytes (Manual) 4 L (19.3-51.7) % Monocytes (Manual) 4 L (4.7-12.5) % Platelet Estimate NORMAL (NORMAL) RBC Morphology NORMAL PT (9.4-12.5) SECONDS INR (0.8-3.0) APTT (25.1-36.5) SECONDS Puncture Site pCO2 (35-45) mmHg pO2 (75-100) mmHg Base Excess (-2.0-2.0) O2 Saturation (94-100) g/dF ABG pH (7.35-7.45) ABG HCO3 (22-28) ABG O2 Sat (Measured) (95-100) % Ryan Test A-a Gradient a/A Ratio Hemoglobin Carboxyhemoglobin (0.0-6.9) % THgb Methemoglobin (1.4-1.5) % Potassium (3.5-5.1) Temperature C POC O2 Flow Rate % Sodium (135-145) mmol/L Chloride (98-107) mmol/L Carbon Dioxide (22-30) mmol/L Anion Gap (5-15) MEQ/L BUN (7-17) mg/dL Creatinine (0.52-1.04) mg/dL Estimated GFR ML/MIN Glucose (74-106) mg/dL POC Glucometer (74 to 106) mg/dL Lactic Acid 2.1 H (0.4-2.0) Calcium (8.4-10.2) mg/dL Total Bilirubin (0.2-1.3) mg/dL AST (14-36) U/L ALT (0-35) U/L Alkaline Phosphatase (38-126) U/L Troponin I (0.000-0.033) ng/mL NT-Pro-B Natriuret Pep (<300) pg/mL Serum Total Protein (6.3-8.2) g/dL Albumin (3.5-5.0) g/dL Procalcitonin (0.030-0.080) ng/mL Urine Color Yellow (Yellow) Urine Appearance Clear (Clear) Urine pH 6.5 (4.6-8.0) Ur Specific [place] 1.020 (1.005-1.030) Urine Protein 30 (Negative) Urine Glucose (UA) Negative (Negative) mg/dL Urine Ketones 15 A (Negative) Urine Blood Negative (Negative) Urine Nitrite Negative (Negative) Urine Bilirubin Negative (Negative) Urine Urobilinogen 1.0 A (0.2) mg/dL Ur Leukocyte Esterase Negative (Negative) U Hyaline Cast (Auto) 3-5 A (0-2) /LPF Urine Microscopic RBC 0-2 (0-5) /HPF Urine Microscopic WBC 3-5 (0-5) /HPF Ur Epithelial Cells None Seen (None Seen) /HPF Urine Bacteria None Seen (None Seen) /HPF Urine Culture Reflexed NO (NO) Acetaminophen (10-30) ug/ml Influenza Type A Ag (NEGATIVE) Influenza Type B Ag (NEGATIVE) RSV (PCR) (NEGATIVE) SARS-CoV-2 (PCR) (NEGATIVE) 02/25/25 02/25/25 02/25/25 Range/Units 18:08 18:08 18:12 WBC (3.98-10.04) x10^3/uL RBC (3.93-5.22) x10^6/uL Hgb (11.2-15.7) g/dL Hct (34.1-44.9) % MCV (79.4-94.8) fL MCH (25.6-32.2) pg MCHC (32.2-35.5) g/dL RDW (11.7-14.4) % Plt Count (182-369) x10^3/uL MPV (9.4-12.3) fL Segmented Neutrophils (34.0-71.1) % Band Neutrophils (0.0-2.0) % Lymphocytes (Manual) (19.3-51.7) % Monocytes (Manual) (4.7-12.5) % Platelet Estimate (NORMAL) RBC Morphology PT (9.4-12.5) SECONDS INR (0.8-3.0) APTT (25.1-36.5) SECONDS Puncture Site pCO2 (35-45) mmHg pO2 (75-100) mmHg Base Excess (-2.0-2.0) O2 Saturation (94-100) g/dF ABG pH (7.35-7.45) ABG HCO3 (22-28) ABG O2 Sat (Measured) (95-100) % Ryan Test A-a Gradient a/A Ratio Hemoglobin Carboxyhemoglobin (0.0-6.9) % THgb Methemoglobin (1.4-1.5) % Potassium 4.5 (3.5-5.1) Temperature C POC O2 Flow Rate % Sodium 132 L (135-145) mmol/L Chloride 104 (98-107) mmol/L Carbon Dioxide 15 L* (22-30) mmol/L Anion Gap 17.5 H (5-15) MEQ/L BUN 19 H (7-17) mg/dL Creatinine 1.34 H (0.52-1.04) mg/dL Estimated GFR 41.9 ML/MIN Glucose 256 H (74-106) mg/dL POC Glucometer (74 to 106) mg/dL Lactic Acid (0.4-2.0) Calcium 9.2 (8.4-10.2) mg/dL Total Bilirubin 1.90 H (0.2-1.3) mg/dL AST 19 (14-36) U/L ALT 16 (0-35) U/L Alkaline Phosphatase 106 (38-126) U/L Troponin I 0.018 (0.000-0.033) ng/mL NT-Pro-B Natriuret Pep 856 (<300) pg/mL Serum Total Protein 6.7 (6.3-8.2) g/dL Albumin 3.8 (3.5-5.0) g/dL Procalcitonin 2.150 H* (0.030-0.080) ng/mL Urine Color (Yellow) Urine Appearance (Clear) Urine pH (4.6-8.0) Ur Specific [place] (1.005-1.030) Urine Protein (Negative) Urine Glucose (UA) (Negative) mg/dL Urine Ketones (Negative) Urine Blood (Negative) Urine Nitrite (Negative) Urine Bilirubin (Negative) Urine Urobilinogen (0.2) mg/dL Ur Leukocyte Esterase (Negative) U Hyaline Cast (Auto) (0-2) /LPF Urine Microscopic RBC (0-5) /HPF Urine Microscopic WBC (0-5) /HPF Ur Epithelial Cells (None Seen) /HPF Urine Bacteria (None Seen) /HPF Urine Culture Reflexed (NO) Acetaminophen 26 (10-30) ug/ml Influenza Type A Ag NEGATIVE (NEGATIVE) Influenza Type B Ag NEGATIVE (NEGATIVE) RSV (PCR) NEGATIVE (NEGATIVE) SARS-CoV-2 (PCR) POSITIVE A (NEGATIVE) 02/25/25 Range/Units 19:56 WBC (3.98-10.04) x10^3/uL RBC (3.93-5.22) x10^6/uL Hgb (11.2-15.7) g/dL Hct (34.1-44.9) % MCV (79.4-94.8) fL MCH (25.6-32.2) pg MCHC (32.2-35.5) g/dL RDW (11.7-14.4) % Plt Count (182-369) x10^3/uL MPV (9.4-12.3) fL Segmented Neutrophils (34.0-71.1) % Band Neutrophils (0.0-2.0) % Lymphocytes (Manual) (19.3-51.7) % Monocytes (Manual) (4.7-12.5) % Platelet Estimate (NORMAL) RBC Morphology PT (9.4-12.5) SECONDS INR (0.8-3.0) APTT (25.1-36.5) SECONDS Puncture Site pCO2 (35-45) mmHg pO2 (75-100) mmHg Base Excess (-2.0-2.0) O2 Saturation (94-100) g/dF ABG pH (7.35-7.45) ABG HCO3 (22-28) ABG O2 Sat (Measured) (95-100) % Ryan Test A-a Gradient a/A Ratio Hemoglobin Carboxyhemoglobin (0.0-6.9) % THgb Methemoglobin (1.4-1.5) % Potassium (3.5-5.1) Temperature C POC O2 Flow Rate % Sodium (135-145) mmol/L Chloride (98-107) mmol/L Carbon Dioxide (22-30) mmol/L Anion Gap (5-15) MEQ/L BUN (7-17) mg/dL Creatinine (0.52-1.04) mg/dL Estimated GFR ML/MIN Glucose (74-106) mg/dL POC Glucometer (74 to 106) mg/dL Lactic Acid 2.2 H (0.4-2.0) Calcium (8.4-10.2) mg/dL Total Bilirubin (0.2-1.3) mg/dL AST (14-36) U/L ALT (0-35) U/L Alkaline Phosphatase (38-126) U/L Troponin I (0.000-0.033) ng/mL NT-Pro-B Natriuret Pep (<300) pg/mL Serum Total Protein (6.3-8.2) g/dL Albumin (3.5-5.0) g/dL Procalcitonin (0.030-0.080) ng/mL Urine Color (Yellow) Urine Appearance (Clear) Urine pH (4.6-8.0) Ur Specific [place] (1.005-1.030) Urine Protein (Negative) Urine Glucose (UA) (Negative) mg/dL Urine Ketones (Negative) Urine Blood (Negative) Urine Nitrite (Negative) Urine Bilirubin (Negative) Urine Urobilinogen (0.2) mg/dL Ur Leukocyte Esterase (Negative) U Hyaline Cast (Auto) (0-2) /LPF Urine Microscopic RBC (0-5) /HPF Urine Microscopic WBC (0-5) /HPF Ur Epithelial Cells (None Seen) /HPF Urine Bacteria (None Seen) /HPF Urine Culture Reflexed (NO) Acetaminophen (10-30) ug/ml Influenza Type A Ag (NEGATIVE) Influenza Type B Ag (NEGATIVE) RSV (PCR) (NEGATIVE) SARS-CoV-2 (PCR) (NEGATIVE) Accuchecks Date 02/25/25 Time 17:10 - Radiology Impressions Radiology Exams & Impressions: Radiology Procedures Category Date Time Status CHEST 1 VIEW (PORTABLE) Stat Exams 02/25/25 17:06 Taken - Other Procedures and Tests Respiratory Therapy 02/25/25 17:47 Respiratory Therapy Assessment ONCE Telemedicine Encounter - Telemedicine Encounter Telemedicine Encounter: "The entirety of this encounter was performed via Telemedicine" This visit was performed using real-time audio and video connection between my location and thepatients locationwith the assistance of a surrogateat the patients location. Written or verbal consent was obtained from the patient/guardian to perform this visit [facility] technology. Any patient questions regarding the telemedicine interaction were answered.
[2025-02-26 05:00] LABS: Hematocrit 39.7 % (34.1-44.9); Hemoglobin 12.1 g/dL (11.2-15.7); Mean Corpuscular Hemoglobin 25.1 pg (25.6-32.2); Mean Corpuscular Hgb Concent. 30.5 g/dL (32.2-35.5); Platelet Count 162 x10^3/uL (182-369); Red Blood Count 4.82 x10^6/uL (3.93-5.22); White Blood Count 20.9 x10^3/uL (3.98-10.04)
[2025-02-26 05:21] LABS: Calcium 9.1 mg/dL (8.4-10.2); Carbon Dioxide 18.0 mmol/L (22-30); Creatinine 1 1.43 mg/dL (0.52-1.04); EST GLOMERULAR FILTRATION RATE 38.7 ML/MIN; Glucose 326.0 mg/dL (74-106); Potassium 3.9 mmol/L (3.5-5.1)
[2025-02-26] MEDS ORDERED: VENTOLIN COMMON CANISTER IH PRN (07:04)
[2025-02-26] MEDS ORDERED: Zofran 4 MG/2 ML VIAL IV PRN (07:04)
[2025-02-26] MEDS ORDERED: HYDROCODONE-CHLORPHEN ER SUSP PO PRN (07:04)
--- NOTE | 2025-02-26 07:35 | XRAY ---
Indication: Dyspnea. Comparison: November 05, 2024 Portable chest again demonstrates minimal left base subsegmental atelectasis/scarring. Remaining heart and lungs unremarkable. Bony thorax intact again with osteopenia and degenerative changes. No new/acute findings.
[2025-02-26 07:50] LABS: A-aADO2 34; ABG HEMOGLOBIN 12.5; ABG POTASSIUM 4.0 (3.5-5.1); ABG SITE RIGHT RADIAL; ALLEN TEST OK? YES; ARTERIAL BLD GAS O2 SATURATION 98.7 % (95-100); ARTERIAL BLOOD GAS BASE EXCESS -4.0 (-2.0-2.0); ARTERIAL BLOOD GAS FIO2 21 %; ARTERIAL BLOOD GAS PCO2 29 mmHg (35-45); ARTERIAL BLOOD GAS PO2 79 mmHg (75-100); ARTERIAL BLOOD GAS TEMPERATURE 37.0 C; HCO3- 19.2 (22-28); HGB O2 SAT 95.8 g/dF (94-100); Methhemoglobin 1.1 % (1.4-1.5); paO2 pAO1 0.70
[2025-02-26] MEDS: HUMALOG SQ PRN ×2 (07:59→17:01)
--- NOTE | 2025-02-26 08:41 | PCM.NOTE ---
74-year-old female with CHF (EF 58%), DM, HTN, HLD, COPD (RA at baseline), CKD (baseline Cr 1.3), and chronic lymphedema presenting with COVID-19 infection complicated by sepsis. She met Sepsis criteria with fever 104.2, HR 140, tachypnea requiring initial BiPAP, leukocytosis (WBC 27.7 - 20.9), rising procalcitonin (2.15 - 7.85), metabolic acidosis (CO2 15, gap 17.5), mild ARLINE (Cr 1.43), hyperglycemia (326), and Tbili 1.9. Lactic acid 2.2. CXR without infiltrates. She received 2 L IV fluids, Solumedrol, Zosyn, Vancomycin, and is now on room air. Sepsis, likely COVID-19 pneumonia vs superimposed bacterial infection -Meets Sepsis criteria with tachycardia, tachypneia, fever, and Covid -2LFluid resuscitation already given; reassess volume status given CHF/CKD - maintain gentle hydration -Continue empiric broad-spectrum coverage (Zosyn + Vancomycin) pending cultures. -COVID positive: -remdesivir/lovenox - on RA no dexamethasone - Monitor cultures, trend procalcitonin, CRP, and inflammatory markers. Acute hypoxemic respiratory failure -Initially required BiPAP, now on room air. -Continue close monitoring, titrate oxygen to keep sats >92% (or 8892% if COPD baseline). -Pulmonary hygiene, incentive spirometry. Hyperglycemia / Diabetes -BG 326, likely stress hyperglycemia worsened by steroids. -ADA diet -SSI -Hold oral agents. High anion gap metabolic acidosis -Gap 17.5, CO2 15, lactate 2.2. -Likely multifactorial: sepsis, hyperglycemia, renal impairment. -Monitor cMP, ABG/VBG as indicated. -Recheck lactate now WNL Acute kidney injury on CKD -Cr 1.43 from baseline 1.3. -Likely prerenal from sepsis. -Monitor I/Os, avoid nephrotoxins (NSAIDs, contrast). -Adjust antibiotics for renal dosing. Chronic heart failure (EF 58%) -Appears compensated, no acute volume overload noted. -Careful with fluids; reassess with exam/BNP. -Continue home regimen COPD -Stable on room air. -Continue inhalers, PRN bronchodilators. -Monitor for exacerbation; steroid dosing should be clarified. Hypertension, hyperlipidemia, anxiety/depression, chronic pain, lymphedema -Resume home meds as tolerated. -Supportive care.
[2025-02-26] MEDS: OXYCODONE-ACETAMINOPHEN 10-325 PO PRN (09:26)
[2025-02-26] MEDS: REMDESIVIR 200 MG in Sodium Chloride 0.9% 250 ML 250 ML IV ONE (09:36)
[2025-02-26] MEDS ORDERED: ENOXAPARIN SODIUM SQ SCH ×2 (10:00)
[2025-02-26] MEDS ORDERED: PROTONIX 40 MG IV IV SCH (10:00)
[2025-02-26] MEDS ORDERED: Furosemide 100mg/10 ml Vial IV SCH (10:00)
[2025-02-26] MEDS: Cymbalta 30 MG Capsule PO SCH (10:07)
[2025-02-26] MEDS: DECADRON 10MG INJ. IV SCH (10:08)
[2025-02-26] MEDS: Protonix 40MG Tablet PO SCH (10:08)
[2025-02-26] MEDS: VANCOMYCIN 1.25 GM/250 ML BAG 1.25 GM/250 ML PIGGYBACK IV SCH (11:20)
[2025-02-26] MEDS: DUONEB 0.5-3 MG/3 ml Neb IH SCH (13:10)
[2025-02-26] MEDS: HEPARIN 5000 UNITS/0.5 ML (HIGH RISK MED) SQ SCH (13:43)
[2025-02-26] MEDS ORDERED: VENTOLIN COMMON CANISTER IH SCH (19:00)
[2025-02-26] MEDS ORDERED: TYLENOL 325 MG ONE (21:05)
[2025-02-26] MEDS: TYLENOL 325 MG PO PRN (21:10)
--- NOTE | 2025-02-27 05:24 | PCM.NOTE ---
Date and Time: 02/27/25515 Subjective Assessment: 74-year-old female with CHF (EF 58%), DM, HTN, HLD, COPD (RA at baseline), CKD (baseline Cr 1.3), and chronic lymphedema presenting with COVID-19 infection complicated by sepsis. She met Sepsis criteria with fever 104.2, HR 140, tachypnea requiring initial BiPAP, leukocytosis (WBC 27.7 - 20.9), rising proc alcitonin (2.15 - 7.85), metabolic acidosis (CO2 15, gap 17.5), mild ARLINE (Cr 1.43), hyperglycemia (326), and Tbili 1.9. Lactic acid 2.2. CXR without infiltrates. She received 2 L IV fluids, Solumedrol, Zosyn, Vancomycin, and is now on room air. Remdesivir, vanc, zosyn, and dexamethasone continued. 02/27/25: Met with patient bedside. Endorses that she is feeling much improved today although she remains weak. Remains on RA. CT chest with no acute findings. Blood cultures x1 with gram + cocci. Plan to continue on Vanc/Zosyn/Remesivir pending final culture results. - Review of Systems Constitutional: Fatigue, Weakness Eyes: No Symptoms Ears, Nose, & Throat: No Symptoms Respiratory: Cough, Short Of Breath Cardiac: Edema (BLE chronic lymphedema) Abdominal/Gastrointestinal: No Symptoms Genitourinary Symptoms: No Symptoms Musculoskeletal: No Symptoms Skin: No Symptoms Neurological: No Symptoms Psychological: No Symptoms Endocrine: No Symptoms Hematologic/Lymphatic: No Symptoms Immunological/Allergic: No Symptoms Objective Exam General Appearance: no apparent distress Neurologic Exam: alert, oriented x 3, cooperative Skin Exam: normal color Wound Assessment: Skin/Wound Assessment Wound/Incision Assessment Start: 02/25/25 23:02 Text: Status: Active Freq: Q6H Protocol: Document 02/27/25 02:00 MP (Rec: 02/27/25 03:08 MP [id number]) Wound/Incision Assessment Buttock Wound Assessment Shift Assessment Wound Type IAD Wound Stage Non Pressure Wound Drainage Amount Minimal Drainage Description Serous General Appearance Open to air,Reddened,Draining, Unapproximated Surrounding Tissue Bright Red Comment Applied Barrier Cream/zinc Wound Photo Photo Taken No Eye Exam: PERRL Ears, Nose, Throat Exam: normal ENT inspection Neck Exam: normal inspection Respiratory Exam: diminished breath sounds Cardiovascular Exam: regular rate/rhythm, normal heart sounds Gastrointestinal/Abdomen Exam: soft, normal bowel sounds Extremity Exam: swelling (BLE +3 pitting) Back Exam: normal inspection Pelvic Exam: deferred Rectal Exam: deferred Objective Data Vital Signs: Vital Signs - 24 hr Temp Pulse Resp BP Pulse Ox 02/27/25 00:00 97.3 F 109 H 16 128/60 95 02/26/25 20:00 97.1 F 105 H 18 95 02/26/25 19:13 108 H 18 93 L 02/26/25 16:00 97.9 F 105 H 16 128/60 96 02/26/25 13:14 103 H 18 95 02/26/25 11:57 97.7 F 102 H 16 124/58 95 02/26/25 09:21 93 L 02/26/25 09:19 100 H 20 93 L 02/26/25 07:41 97.9 F 103 H 16 120/57 95 Pain Assessment - Last Documented Pain Intensity 6 Pain Scale Used 0-10 Pain Scale Intake and Output: Intake & Output 02/24/25 02/25/25 02/26/25 02/27/25 11:59 11:59 11:59 11:59 Intake Total 0 1060 Output Total 1400 Balance -1400 1060 Weight 137.5 kg 137.5 kg Lab Results: Lab Results-Last 24 Hours 02/26/25 02/26/25 02/26/25 Range/Units 04:55 04:55 04:55 D-Dimer (0.0-0.50) mg/L Puncture Site pCO2 (35-45) mmHg pO2 (75-100) mmHg Base Excess (-2.0-2.0) O2 Saturation (94-100) g/dF ABG pH (7.35-7.45) ABG HCO3 (22-28) ABG O2 Sat (Measured) (95-100) % Ryan Test A-a Gradient a/A Ratio Hemoglobin Carboxyhemoglobin (0.0-6.9) % THgb Methemoglobin (1.4-1.5) % Temperature C POC O2 Flow Rate % Sodium 135 (135-145) mmol/L Potassium 3.9 (3.5-5.1) mmol/L Chloride 108 H (98-107) mmol/L Carbon Dioxide 18 L (22-30) mmol/L Anion Gap 13.5 (5-15) MEQ/L BUN 21 H (7-17) mg/dL Creatinine 1.43 H (0.52-1.04) mg/dL Estimated GFR 38.7 ML/MIN Glucose 326 H (74-106) mg/dL POC Glucometer (74 to 106) mg/dL Hemoglobin A1c (4.5-6.0) % Lactic Acid (0.4-2.0) Calcium 9.1 (8.4-10.2) mg/dL Magnesium 1.6 (1.6-2.3) mg/dL Prealbumin 9.88 L (17.6-36.0) mg/dL Procalcitonin 7.850 H* (0.030-0.080) ng/mL 02/26/25 02/26/25 02/26/25 Range/Units 04:55 04:55 07:04 D-Dimer 1.48 H* (0.0-0.50) mg/L Puncture Site RIGHT RADIAL pCO2 29 L (35-45) mmHg pO2 79 (75-100) mmHg Base Excess -4.0 L (-2.0-2.0) O2 Saturation 95.8 (94-100) g/dF ABG pH 7.43 (7.35-7.45) ABG HCO3 19.2 L (22-28) ABG O2 Sat (Measured) 98.7 (95-100) % Ryan Test YES A-a Gradient 34 a/A Ratio 0.70 Hemoglobin 12.5 Carboxyhemoglobin 1.7 (0.0-6.9) % THgb Methemoglobin 1.1 L (1.4-1.5) % Temperature 37.0 C POC O2 Flow Rate 21 % Sodium (135-145) mmol/L Potassium 4.0 (3.5-5.1) mmol/L Chloride (98-107) mmol/L Carbon Dioxide (22-30) mmol/L Anion Gap (5-15) MEQ/L BUN (7-17) mg/dL Creatinine (0.52-1.04) mg/dL Estimated GFR ML/MIN Glucose (74-106) mg/dL POC Glucometer (74 to 106) mg/dL Hemoglobin A1c 6.54 H (4.5-6.0) % Lactic Acid (0.4-2.0) Calcium (8.4-10.2) mg/dL Magnesium (1.6-2.3) mg/dL Prealbumin (17.6-36.0) mg/dL Procalcitonin (0.030-0.080) ng/mL 02/26/25 02/26/25 02/26/25 Range/Units 07:04 07:34 11:40 D-Dimer (0.0-0.50) mg/L Puncture Site pCO2 (35-45) mmHg pO2 (75-100) mmHg Base Excess (-2.0-2.0) O2 Saturation (94-100) g/dF ABG pH (7.35-7.45) ABG HCO3 (22-28) ABG O2 Sat (Measured) (95-100) % Ryan Test A-a Gradient a/A Ratio Hemoglobin Carboxyhemoglobin (0.0-6.9) % THgb Methemoglobin (1.4-1.5) % Temperature C POC O2 Flow Rate % Sodium (135-145) mmol/L Potassium (3.5-5.1) mmol/L Chloride (98-107) mmol/L Carbon Dioxide (22-30) mmol/L Anion Gap (5-15) MEQ/L BUN (7-17) mg/dL Creatinine (0.52-1.04) mg/dL Estimated GFR ML/MIN Glucose (74-106) mg/dL POC Glucometer 288 H 282 H (74 to 106) mg/dL Hemoglobin A1c (4.5-6.0) % Lactic Acid 1.3 (0.4-2.0) Calcium (8.4-10.2) mg/dL Magnesium (1.6-2.3) mg/dL Prealbumin (17.6-36.0) mg/dL Procalcitonin (0.030-0.080) ng/mL 02/26/25 02/26/25 Range/Units 16:57 20:58 D-Dimer (0.0-0.50) mg/L Puncture Site pCO2 (35-45) mmHg pO2 (75-100) mmHg Base Excess (-2.0-2.0) O2 Saturation (94-100) g/dF ABG pH (7.35-7.45) ABG HCO3 (22-28) ABG O2 Sat (Measured) (95-100) % Ryan Test A-a Gradient a/A Ratio Hemoglobin Carboxyhemoglobin (0.0-6.9) % THgb Methemoglobin (1.4-1.5) % Temperature C POC O2 Flow Rate % Sodium (135-145) mmol/L Potassium (3.5-5.1) mmol/L Chloride (98-107) mmol/L Carbon Dioxide (22-30) mmol/L Anion Gap (5-15) MEQ/L BUN (7-17) mg/dL Creatinine (0.52-1.04) mg/dL Estimated GFR ML/MIN Glucose (74-106) mg/dL POC Glucometer 252 H 258 H (74 to 106) mg/dL Hemoglobin A1c (4.5-6.0) % Lactic Acid (0.4-2.0) Calcium (8.4-10.2) mg/dL Magnesium (1.6-2.3) mg/dL Prealbumin (17.6-36.0) mg/dL Procalcitonin (0.030-0.080) ng/mL Radiology Exams: Radiology Procedures Category Date Time Status CHEST 1 VIEW (PORTABLE) Stat Exams 02/25/25 17:06 Completed Medications: Medications Generic Name Dose Route Start Last Admin Trade Name Freq PRN Reason Stop Dose Admin Acetaminophen 650 mg 02/26/25 21:00 02/26/25 21:10 Acetaminophen 325 Mg Tablet PO 03/28/25 20:59 650 mg Q6H PRN PRN Administration PAIN AND/OR FEVER Albuterol Sulfate 4 puff 02/26/25 07:04 Albuterol Common Canister Inhaler 03/28/25 07:03 Q4H PRN PRN SHORTNESS OF BREATH/WHEEZING Albuterol/Ipratropium 3 ml 02/26/25 13:00 02/27/25 01:00 Ipratropium/Albuterol Sulfate 3 Ml Ampul.Neb 03/28/25 12:59 Not Given Q6HRT ERNESTINA Chlorphenir/Hydrocodone Polistirex 5 ml 02/26/25 07:04 Hydrocodone/Chlorphen P-Stirex 1 Ml Eryn.Er.12h PO 03/28/25 07:03 [id number] PRN COUGH Device 1 02/28/25 09:30 Therapuetic Drug Level Monitor Each IJ 02/28/25 09:31 1XONLY ONE Dexamethasone Sodium Phosphate 6 mg 02/26/25 10:00 02/26/25 10:08 Dexamethasone Sod Phosphate 10 Mg/Ml IV 03/07/25 10:01 6 mg DAILY ERNESTINA Administration Duloxetine HCl 60 mg 02/26/25 10:00 02/26/25 10:07 Duloxetine Hcl 30 Mg Cap PO 03/28/25 09:59 60 mg DAILY ERNESTINA Administration Heparin Sodium (Beef Lung) 5,000 unit 02/26/25 14:00 02/26/25 21:13 Heparin 5000 Units/0.5 Ml 5,000 Unit/0.5 Ml Syr SQ 03/28/25 13:59 5,000 unit Q8HT ERNESTINA Administration Remdesivir 100 mg/ Sodium 100 mls @ 100 mls/hr 02/27/25 10:00 Chloride IV 03/02/25 10:59 DAILY ERNESTINA Piperacillin Sod/Tazobactam 100 mls @ 200 mls/hr 02/26/25 08:00 02/26/25 21:13 Sod 4.5 gm/ Sodium Chloride IV 03/28/25 07:59 200 mls/hr Q8HT ERNESTINA Administration Vancomycin HCl 1.25 gm in 250 mls @ 150 mls/hr 02/26/25 10:00 02/26/25 11:20 Vancomycin 1.25 Gm/250 Ml Bag IV 03/01/25 09:59 150 mls/hr DAILY ERNESTINA Administration Insulin Human Lispro 0 unit 02/26/25 13:33 02/26/25 21:13 Insulin Lispro 1 Unit SQ 03/28/25 13:32 10 unit UD PRN Administration HYPERGLYCEMIA Nystatin 1 gm 02/26/25 10:00 02/26/25 22:15 Nystatin 15 Gm Powder TP 03/28/25 09:59 1 gm BID ERNESTINA Administration Ondansetron HCl 4 mg 02/26/25 07:04 Ondansetron Hcl 4 Mg/2 Ml Vial IV 03/28/25 07:03 Q6H PRN PRN NAUSEA/VOMITING Oxycodone/Acetaminophen 1 tab 02/26/25 09:03 02/26/25 23:44 Oxycodone / Apap 10/325 Mg 1 Tablet PO 03/03/25 09:02 1 tab Q6HPRN PRN Administration PAIN Pantoprazole Sodium 40 mg 02/26/25 10:00 02/26/25 10:08 Protonix (Pantoprazole) 40 Mg Tablet PO 03/28/25 09:59 40 mg DAILY ERNESTINA Administration Discontinued Medications Generic Name Dose Route Start Last Admin Trade Name [id number] PRN Reason Stop Dose Admin Acetaminophen Confirm 02/26/25 21:05 Acetaminophen 325 Mg Tablet Administered 02/26/25 21:06 Dose 650 mg .ROUTE .STK-MED ONE Albuterol Sulfate 5 mg 02/25/25 17:15 02/25/25 17:24 Albuterol Solution 2.5 Mg/0.5 Ml Ud Solution IH 03/27/25 17:14 5 mg UD ERNESTINA Administration Albuterol Sulfate Confirm 02/25/25 17:20 Albuterol Sulfate 2.5 Mg/3 Ml Neb Administered 02/25/25 17:21 Dose 2.5 mg IH .STK-MED ONE Albuterol Sulfate Confirm 02/25/25 17:23 Albuterol Solution 2.5 Mg/0.5 Ml Ud Solution Administered 02/25/25 17:24 Dose 5 mg IH .STK-MED ONE Albuterol Sulfate 4 puff 02/26/25 19:00 Albuterol Common Canister Inhaler IH 03/28/25 18:59 BIDRT ERNESTINA Methylprednisolone Sodium 0 mg 02/25/25 17:09 02/25/25 17:37 Succinate 125 mg/ Sterile IV 02/25/25 17:10 125 mg Water 2 ml STAT ONE Administration Enoxaparin Sodium 40 mg 02/26/25 10:00 Enoxaparin Sodium 40 Mg/0.4 Ml Syringe SQ 03/28/25 09:59 DAILY ERNESTINA Enoxaparin Sodium 30 mg 02/26/25 10:00 Enoxaparin Sodium 30 Mg/0.3 Ml Syringe SQ 03/28/25 09:59 DAILY ERNESTINA Furosemide 80 mg 02/26/25 10:00 Furosemide 100 Mg/10 Ml Vial IV 03/28/25 09:59 DAILY ERNESTINA Sodium Chloride 1,000 mls @ 999 mls/hr 02/25/25 17:45 02/25/25 20:03 Sodium Chloride 0.9% 1000 Ml IV 02/25/25 19:45 Infused .Q1H1M ERNESTINA Infusion Piperacillin Sod/Tazobactam 100 mls @ 200 mls/hr 02/25/25 17:42 02/25/25 18:43 Sod 4.5 gm/ Sodium Chloride IV 02/25/25 18:11 Infused STAT STA Infusion Vancomycin HCl 2 gm in 400 mls @ 133.333 mls/hr 02/25/25 17:42 02/25/25 18:29 Vancomycin 2 Gram/400 Ml Bag IV 02/25/25 20:41 133.33 mls/hr STAT ONE 133.33 mls/hr Administration Acetaminophen 100 mls @ 400 mls/hr 02/25/25 17:47 02/25/25 18:23 Ofirmev IV 02/25/25 18:01 Infused STAT ONE Infusion Acetaminophen Confirm 02/25/25 17:48 Ofirmev Administered 02/25/25 17:49 Dose 100 mls @ ud IV .STK-MED ONE Sodium Chloride Confirm 02/25/25 18:10 Sodium Chloride 0.9% Administered 02/25/25 18:11 Dose 100 mls @ ud .ROUTE .STK-MED ONE Vancomycin HCl Confirm 02/25/25 18:28 Vancomycin 2 Gram/400 Ml Bag Administered 02/25/25 18:29 Dose 2 gm in 400 mls @ ud IV .STK-MED ONE Sodium Chloride Confirm 02/25/25 18:06 Sodium Chloride 0.9% 1000 Ml Administered 02/25/25 18:07 Dose 1,000 mls @ ud .ROUTE .STK-MED ONE Sodium Chloride Confirm 02/25/25 18:44 Sodium Chloride 0.9% 1000 Ml Administered 02/25/25 18:45 Dose 1,000 mls @ ud .ROUTE .STK-MED ONE Sodium Chloride Confirm 02/26/25 00:43 Sodium Chloride 0.9% 1000 Ml Administered 02/26/25 00:44 Dose 1,000 mls @ ud .ROUTE .STK-MED ONE Sodium Chloride 1,000 mls @ 100 mls/hr 02/26/25 01:00 02/26/25 00:51 Sodium Chloride 0.9% 1000 Ml IV 03/28/25 00:59 100 mls/hr .Q10H ERNESTINA Administration Remdesivir 100 mg/ Sodium 100 mls @ 100 mls/hr 02/27/25 07:15 Chloride IV 03/02/25 08:14 Q24H ERNESTINA Remdesivir 200 mg/ Sodium 250 mls @ 125 mls/hr 02/26/25 07:04 Chloride IV 02/26/25 09:03 ONCE ONE Remdesivir 200 mg/ Sodium 250 mls @ 125 mls/hr 02/26/25 09:00 02/26/25 09:36 Chloride IV 02/26/25 10:59 125 mls/hr ONCE ONE Administration Insulin Human Lispro 0 unit 02/26/25 07:04 02/26/25 12:04 Insulin Lispro 1 Unit SQ 03/28/25 07:03 7 unit UD PRN Administration HYPERGLYCEMIA Methylprednisolone Sodium Succinate Confirm 02/25/25 17:35 Methylprednis Sod Succ 125 Mg/2 Ml Vial Administered 02/25/25 17:36 Dose 125 mg .ROUTE .STK-MED ONE Methylprednisolone Sodium Succinate Confirm 02/25/25 17:36 Methylprednis Sod Succ 125 Mg/2 Ml Vial Administered 02/25/25 17:37 Dose 125 mg .ROUTE .STK-MED ONE Non-Formulary Medication 1 each 02/26/25 07:04 Pharmacy Dosing Request [facility] 02/26/25 07:05 STAT ONE Pantoprazole Sodium 40 mg 02/26/25 10:00 Pantoprazole 40 Mg Vial IV 03/28/25 09:59 Q24H10 ERNESTINA Piperacillin Sod/Tazobactam Sod Confirm 02/25/25 18:10 Piperacillin/Tazobactam Sodium 4.5 Gm Vial Administered 02/25/25 18:11 Dose 4.5 gm IV .STK-MED ONE Sterile Water Confirm 02/25/25 17:36 Water For Injection,Sterile 10 Ml Vial Administered 02/25/25 17:37 Dose 10 ml IJ .STK-MED ONE Multi-Disciplinary Progress Notes: Multi-Disciplinary Progress Notes 02/27/25 01:01 Respiratory Note by Kaylin Odom Pt refuses neb tx at this time. She states she is too tired to take tx at this time. RT advised pt to call if she becomes SOB or feels that she needs tx. RNNoé notified. Initialized on 02/27/25 01:01 - END OF NOTE 02/26/25 12:02 Case Management Note by Yuliet Kasper Addendum entered by Yuliet Kasper RN 02/26/25 12:09: [facility] HAS ACCEPTED PATIENT UPON DC. Original Note: PATIENT WANTS C UPON DC. HAS USED [facility] IN PAST AND WANTS THEM AGAIN. REFERRAL FAXED TO [facility]. THEY WILL NEED NOTIFIED AT TIME OF DC AT [phone]. THEY WILL NEED FAXED DC INSTRUCTIONS, DC MED LIST AND DC SUMMARY (IF AVAILABLE) TO [phone]. Initialized on 02/26/25 12:02 - END OF NOTE Assessment/Plan (1) Sepsis Current Visit: Yes Status: Acute Assessment & Plan: -Meets Sepsis criteria with tachycardia, tachypneia, fever, and Covid -2LFluid resuscitation already given; reassess volume status given CHF/CKD - maintain gentle hydration -Continue empiric broad-spectrum coverage (Zosyn + Vancomycin) pending cultures. -COVID positive: -remdesivir/lovenox - on RA -was requiring BIPAP on admission -Supplemental oxygen as needed to maintain spo2> 91% -dexamethasone 6mg daily x 10 days per Covid guidelines -CMP/CBC reviewed WBC 23.2> 20.9<27.7 -Procal 7.770<7.850>2.150 -Blood culture positive for gram + cocci x 1 - final sensitivity pending -repeat blood cultures -CT chest no acute findings -Sputum pending - Monitor cultures, trend procalcitonin, CRP, and inflammatory markers. (2) Acute hypoxic respiratory failure Current Visit: Yes Status: Acute Assessment & Plan: see sepsis above Code(s): J96.01 - ACUTE RESPIRATORY FAILURE WITH HYPOXIA (3) High anion gap metabolic acidosis Current Visit: Yes Status: Acute Assessment & Plan: Gap 17.5, CO2 15, lactate 2.2. on admission -Likely multifactorial: sepsis, hyperglycemia, renal impairment. -Monitor cMP, ABG/VBG as indicated. -Recheck lactate now WNL 02/27: -co2 reviewed and improved at 21 -Gap WNL at 12.5 -Lactate now WNL Code(s): E87.29 - OTHER ACIDOSIS (4) Acute kidney injury superimposed on CKD Current Visit: Yes Status: Acute Assessment & Plan: -Cr 1.43 from baseline 1.3. -Likely prerenal from sepsis. -Monitor I/Os, avoid nephrotoxins (NSAIDs, contrast). -Adjust antibiotics for renal dosing. 02/27: -creat reviewed at 1.56 -continue above treatment Code(s): N17.9 - ACUTE KIDNEY FAILURE, UNSPECIFIED; N18.9 - CHRONIC KIDNEY DISEASE, UNSPECIFIED (5) CHF (congestive heart failure) Current Visit: Yes Status: Acute Assessment & Plan: -Appears compensated, no acute volume overload noted. -Careful with fluids; reassess with exam/BNP. -Continue home regimen Code(s): I50.9 - HEART FAILURE, UNSPECIFIED (6) COPD exacerbation Current Visit: Yes Status: Acute Assessment & Plan: see sepsis above -Now stable on room air. -Continue inhalers, PRN bronchodilators. Code(s): J44.1 - CHRONIC OBSTRUCTIVE PULMONARY DISEASE W (ACUTE) EXACERBATION (7) HLD (hyperlipidemia) Current Visit: Yes Status: Acute Assessment & Plan: continue home regimen Code(s): E78.5 - HYPERLIPIDEMIA, UNSPECIFIED (8) Chronic pain Current Visit: Yes Status: Acute Assessment & Plan: -continue home pain meds Code(s): G89.29 - OTHER CHRONIC PAIN (9) Anxiety and depression Current Visit: Yes Status: Acute Assessment & Plan: continue home duloxetine Code(s): F41.9 - ANXIETY DISORDER, UNSPECIFIED; F32.A - DEPRESSION, UNSPECIFIED (10) HTN (hypertension) Current Visit: No Status: Acute Assessment & Plan: BP stable monitor closely Code(s): I10 - ESSENTIAL (PRIMARY) HYPERTENSION (11) Lymphedema of both lower extremities Current Visit: No Status: Acute Assessment & Plan: -Chronic continue home med lasix when creat at baseline -consider podiatry referral for compression dressings Code(s): I89.0 - LYMPHEDEMA, NOT ELSEWHERE CLASSIFIED (12) Morbid obesity with BMI of 50.0-59.9, adult Current Visit: No Status: Acute Assessment & Plan: -advised diet/exercise when able Code(s): E66.01 - MORBID (SEVERE) OBESITY DUE TO EXCESS CALORIES; Z68.43 - BODY MASS INDEX [BMI] 50.0-59.9, ADULT (13) Type 2 diabetes mellitus Current Visit: No Status: Chronic Assessment & Plan: -ADA diet -A1c 6.54-good control -SSI insulin -adjust accordingly with steroids VTE: Heparin PPI: protonix Dispo: 2-3 days Code status: Full code Plan of care time spent >40 mins (14) Bacteremia Current Visit: Yes Status: Acute Code(s): R78.81 - BACTEREMIA
[2025-02-27 06:16] LABS: Calcium 9.2 mg/dL (8.4-10.2); Carbon Dioxide 21.0 mmol/L (22-30); Creatinine 1 1.56 mg/dL (0.52-1.04); EST GLOMERULAR FILTRATION RATE 34.9 ML/MIN; Glucose 292.0 mg/dL (74-106); NT PRO BNPII 412.0 pg/mL (<300); Potassium 3.8 mmol/L (3.5-5.1); SGOT/AST 63.0 U/L (14-36); SGPT/ALT 89.0 U/L (0-35); Total Protein 6.3 g/dL (6.3-8.2)
[2025-02-27 06:24] LABS: Hematocrit 35.9 % (34.1-44.9); Hemoglobin 10.8 g/dL (11.2-15.7); Mean Corpuscular Hemoglobin 24.9 pg (25.6-32.2); Mean Corpuscular Hgb Concent. 30.1 g/dL (32.2-35.5); Platelet Count 172 x10^3/uL (182-369); Red Blood Count 4.35 x10^6/uL (3.93-5.22); White Blood Count 23.2 x10^3/uL (3.98-10.04)
[2025-02-27] MEDS ORDERED: REMDESIVIR 100 MG in Sodium Chloride 100ML MINI-BAG PLUS 100 ML IV SCH (07:15)
[2025-02-27] MEDS: REMDESIVIR 100 MG in Sodium Chloride 100ML MINI-BAG PLUS 100 ML IV SCH (10:03)
--- NOTE | 2025-02-27 10:36 | XRAY ---
CLINICAL HISTORY: covid sepsis COMPARISON: 11/02/2024 TECHNIQUE: Contiguous axial CT images of the chest were acquired without the administration of intravenous contrast. Coronal and sagittal reconstructions were obtained. One of the following dose reduction techniques was utilized for this exam: automated exposure control, adjustment of the mA and/or kV according to patient size, or use of iterative reconstruction. FINDINGS: Lungs: The previously documented effusions are not seen in the current images. A 3 mm nodule is noted in the right lower lobe (Se 3, Im 35/70). The left nodule is not visualized. Minimal pleural thickening is noted. The lung parenchyma is clear, with no evidence of consolidation, collapse, or focal lesions. No pulmonary masses are identified. No evidence of interstitial lung disease or emphysema. No pleural effusion or pleural thickening. Mediastinum: The mediastinum is normal in size and contour. There is no mediastinal mass or abnormal lymphadenopathy. The heart size is within normal limits. Hilar Structures: The hilar structures appear normal, without enlargement or abnormality. There are no atheromatous calcifications of the aorta or coronary arteries. Trachea and Main Bronchi: The trachea and main bronchi are patent, without evidence of obstruction or abnormality. Chest Wall: The chest wall is unremarkable, with no evidence of soft tissue or bony abnormalities. Upper Abdomen: The gallbladder shows multiple dense concretions versus sludge. The thyroid is enlarged in size and shows nodules. Requires USG correlation. Bones: Visualized osseous structures show degenerative changes. IMPRESSION: 1. The previously documented effusions are not seen in the current images. 2. A 3 mm nodule is noted in the right lower lobe (Se 3, Im 35/70). The left nodule is not visualized (follow-up after 12 months in high risk, no follow-up in low risk). 3. Minimal pleural thickening is noted. 4. The rest of the findings show no interval change. Electronically Signed by: Madhu Almeida MD. (02/27/2025 10:34:42 EDT)
[2025-02-27 12:29] LABS: Slide Review YES
--- NOTE | 2025-02-28 05:42 | PCM.NOTE ---
Date and Time: 02/28/25 0541 Subjective Assessment: 74-year-old female with CHF (EF 58%), DM, HTN, HLD, COPD (RA at baseline), CKD (baseline Cr 1.3), and chronic lymphedema presenting with COVID-19 infection complicated by sepsis. She met Sepsis criteria with fever 104.2, HR 140, tachypnea requiring initial BiPAP, leukocytosis (WBC 27.7 - 20.9), rising proc alcitonin (2.15 - 7.85), metabolic acidosis (CO2 15, gap 17.5), mild ARLINE (Cr 1.43), hyperglycemia (326), and Tbili 1.9. Lactic acid 2.2. CXR without infiltrates. She received 2 L IV fluids, Solumedrol, Zosyn, Vancomycin, and is now on room air. Remdesivir, vanc, zosyn, and dexamethasone continued. 02/27/25: Met with patient bedside. Endorses that she is feeling much improved today although she remains weak. Remains on RA. CT chest with no acute findings. Blood cultures x1 with gram + cocci. Plan to continue on Vanc/Zosyn/Remesivir pending final culture results. 02/28: Patient presented with dyspnea and weakness, found to be COVID-positive and septic on admission. CT chest revealed no acute pulmonary findings, and she is now stable on room air. One of two blood cultures grew Staphylococcus e pidermidis, which may represent contamination, though clinical suspicion for true bacteremia remains low. Exam today shows chronic lymphedema of the right lower extremity with new erythema, warmth, and tenderness, raising concern for cellulitis as a likely contributor to her sepsis. Venous Dopplers have been ordered to exclude DVT but patient refused testing. Patient reports she has been unable to obtain compression dressings due to lack of [facility] to help with dressing changes; podiatry consult will be pursued during this admission for assistance with lymphedema/cellulitis management. - Review of Systems Constitutional: Weakness Eyes: No Symptoms Ears, Nose, & Throat: No Symptoms Respiratory: No Symptoms Cardiac: Edema (BLE +4 pitting) Abdominal/Gastrointestinal: No Symptoms Genitourinary Symptoms: No Symptoms Musculoskeletal: Back Pain Skin: Cellulitis (RLE ) Neurological: No Symptoms Psychological: No Symptoms Objective Exam General Appearance: no apparent distress Neurologic Exam: alert, oriented x 3, cooperative Skin Exam: other (BLE with 4+ pitting edema) Wound Assessment: Skin/Wound Assessment Wound/Incision Assessment Start: 02/25/25 23:02 Text: Status: Active Freq: Q6H Protocol: Document 02/28/25 02:00 MP (Rec: 02/28/25 03:44 MP [id number]) Wound/Incision Assessment Buttock Wound Assessment Shift Assessment Wound Type IAD Wound Stage Non Pressure Wound Drainage Amount Minimal Drainage Description Serous General Appearance Open to air,Reddened,Draining, Unapproximated Surrounding Tissue Bright Red Comment Applied Barrier Cream/zinc Wound Photo Photo Taken No Objective Data Vital Signs: Vital Signs - 24 hr Temp Pulse Resp BP Pulse Ox 02/28/25 04:00 98.3 F 69 20 123/60 98 02/27/25 23:59 98.7 F 93 H 18 132/74 98 02/27/25 19:59 98.5 F 97 H 20 128/67 98 02/27/25 18:39 97 H 16 92 L 02/27/25 16:00 97.3 F 93 H 16 133/60 96 02/27/25 13:16 88 18 96 02/27/25 12:00 97.3 F 89 18 122/57 96 02/27/25 08:00 97.8 F 100 H 18 145/66 96 Pain Assessment - Last Documented Pain Intensity 6 Pain Scale Used 0-10 Pain Scale Intake and Output: Intake & Output 02/25/25 02/26/25 02/27/25 02/28/25 11:59 11:59 11:59 11:59 Intake Total 0 1979 1060 Output Total 1400 300 Balance -1399 1979 760 Weight 137.5 kg 137.5 kg Lab Results: Lab Results-Last 24 Hours 02/27/25 02/27/25 02/27/25 Range/Units 05:20 05:20 05:20 WBC 23.2 H (3.98-10.04) x10^3/uL RBC 4.35 (3.93-5.22) x10^6/uL Hgb 10.8 L (11.2-15.7) g/dL Hct 35.9 (34.1-44.9) % MCV 82.5 (79.4-94.8) fL MCH 24.9 L (25.6-32.2) pg MCHC 30.1 L (32.2-35.5) g/dL Plt Count 172 L (182-369) x10^3/uL MPV 11.2 (9.4-12.3) fL D-Dimer 2.05 H* (0.0-0.50) mg/L Sodium 137 (135-145) mmol/L Potassium 3.8 (3.5-5.1) mmol/L Chloride 108 H (98-107) mmol/L Carbon Dioxide 21 L (22-30) mmol/L Anion Gap 12.5 (5-15) MEQ/L BUN 30 H (7-17) mg/dL Creatinine 1.56 H (0.52-1.04) mg/dL Estimated GFR 34.9 ML/MIN Glucose 292 H (74-106) mg/dL POC Glucometer (74 to 106) mg/dL Calcium 9.2 (8.4-10.2) mg/dL Total Bilirubin 0.10 L (0.2-1.3) mg/dL AST 63 H (14-36) U/L ALT 89 H (0-35) U/L Alkaline Phosphatase 101 (38-126) U/L NT-Pro-B Natriuret Pep 412 (<300) pg/mL Serum Total Protein 6.3 (6.3-8.2) g/dL Albumin 3.2 L (3.5-5.0) g/dL Procalcitonin 7.720 H* (0.030-0.080) ng/mL Slides for Path Review YES 02/27/25 02/27/25 02/27/25 Range/Units 08:01 11:25 16:09 WBC (3.98-10.04) x10^3/uL RBC (3.93-5.22) x10^6/uL Hgb (11.2-15.7) g/dL Hct (34.1-44.9) % MCV (79.4-94.8) fL MCH (25.6-32.2) pg MCHC (32.2-35.5) g/dL Plt Count (182-369) x10^3/uL MPV (9.4-12.3) fL D-Dimer (0.0-0.50) mg/L Sodium (135-145) mmol/L Potassium (3.5-5.1) mmol/L Chloride (98-107) mmol/L Carbon Dioxide (22-30) mmol/L Anion Gap (5-15) MEQ/L BUN (7-17) mg/dL Creatinine (0.52-1.04) mg/dL Estimated GFR ML/MIN Glucose (74-106) mg/dL POC Glucometer 235 H 177 H 261 H (74 to 106) mg/dL Calcium (8.4-10.2) mg/dL Total Bilirubin (0.2-1.3) mg/dL AST (14-36) U/L ALT (0-35) U/L Alkaline Phosphatase (38-126) U/L NT-Pro-B Natriuret Pep (<300) pg/mL Serum Total Protein (6.3-8.2) g/dL Albumin (3.5-5.0) g/dL Procalcitonin (0.030-0.080) ng/mL Slides for Path Review 02/27/25 Range/Units 21:44 WBC (3.98-10.04) x10^3/uL RBC (3.93-5.22) x10^6/uL Hgb (11.2-15.7) g/dL Hct (34.1-44.9) % MCV (79.4-94.8) fL MCH (25.6-32.2) pg MCHC (32.2-35.5) g/dL Plt Count (182-369) x10^3/uL MPV (9.4-12.3) fL D-Dimer (0.0-0.50) mg/L Sodium (135-145) mmol/L Potassium (3.5-5.1) mmol/L Chloride (98-107) mmol/L Carbon Dioxide (22-30) mmol/L Anion Gap (5-15) MEQ/L BUN (7-17) mg/dL Creatinine (0.52-1.04) mg/dL Estimated GFR ML/MIN Glucose (74-106) mg/dL POC Glucometer 258 H (74 to 106) mg/dL Calcium (8.4-10.2) mg/dL Total Bilirubin (0.2-1.3) mg/dL AST (14-36) U/L ALT (0-35) U/L Alkaline Phosphatase (38-126) U/L NT-Pro-B Natriuret Pep (<300) pg/mL Serum Total Protein (6.3-8.2) g/dL Albumin (3.5-5.0) g/dL Procalcitonin (0.030-0.080) ng/mL Slides for Path Review Radiology Exams: Radiology Procedures Category Date Time Status CHEST WITHOUT CONTRAST [CT] Stat Exams 02/27/25 08:24 Completed Medications: Medications Generic Name Dose Route Start Last Admin Trade Name Freq PRN Reason Stop Dose Admin Acetaminophen 650 mg 02/26/25 21:00 02/27/25 21:52 Acetaminophen 325 Mg Tablet PO 03/28/25 20:59 650 mg Q6H PRN PRN Administration PAIN AND/OR FEVER Albuterol Sulfate 4 puff 02/26/25 07:04 Albuterol Common Canister Inhaler IH 03/28/25 07:03 Q4H PRN PRN SHORTNESS OF BREATH/WHEEZING Chlorphenir/Hydrocodone Polistirex 5 ml 02/26/25 07:04 Hydrocodone/Chlorphen P-Stirex 1 Ml Eryn.Er.12h PO 03/28/25 07:03 [id number] PRN COUGH Device 1 02/28/25 09:30 Therapuetic Drug Level Monitor Each IJ 02/28/25 09:31 1XONLY ONE Dexamethasone Sodium Phosphate 6 mg 02/26/25 10:00 02/27/25 10:09 Dexamethasone Sod Phosphate 10 Mg/Ml IV 03/07/25 10:01 6 mg DAILY ERNESTINA Administration Duloxetine HCl 60 mg 02/26/25 10:00 02/27/25 10:08 Duloxetine Hcl 30 Mg Cap PO 03/28/25 09:59 60 mg DAILY ERNESTINA Administration Heparin Sodium (Beef Lung) 5,000 unit 02/26/25 14:00 02/27/25 21:52 Heparin 5000 Units/0.5 Ml 5,000 Unit/0.5 Ml Syr SQ 03/28/25 13:59 5,000 unit Q8HT ERNESTINA Administration Remdesivir 100 mg/ Sodium 100 mls @ 100 mls/hr 02/27/25 09:00 02/27/25 10:03 Chloride IV 03/02/25 09:59 100 mls/hr DAILY@0900 ERNESTINA Administration Piperacillin Sod/Tazobactam 100 mls @ 200 mls/hr 02/26/25 08:00 02/27/25 21:52 Sod 4.5 gm/ Sodium Chloride IV 03/28/25 07:59 200 mls/hr Q8HT ERNESTINA Administration Vancomycin HCl 1.25 gm in 250 mls @ 150 mls/hr 02/26/25 10:00 02/27/25 11:05 Vancomycin 1.25 Gm/250 Ml Bag IV 03/01/25 09:59 150 mls/hr DAILY ERNESTINA Administration Insulin Human Lispro 0 unit 02/26/25 13:33 02/27/25 21:52 Insulin Lispro 1 Unit SQ 03/28/25 13:32 10 unit UD PRN Administration HYPERGLYCEMIA Nystatin 1 gm 02/26/25 10:00 02/27/25 22:07 Nystatin 15 Gm Powder TP 03/28/25 09:59 1 gm BID ERNESTINA Administration Ondansetron HCl 4 mg 02/26/25 07:04 Ondansetron Hcl 4 Mg/2 Ml Vial IV 03/28/25 07:03 Q6H PRN PRN NAUSEA/VOMITING Oxycodone/Acetaminophen 1 tab 02/26/25 09:03 02/27/25 23:47 Oxycodone / Apap 10/325 Mg 1 Tablet PO 03/03/25 09:02 1 tab Q6HPRN PRN Administration PAIN Pantoprazole Sodium 40 mg 02/26/25 10:00 02/27/25 10:08 Protonix (Pantoprazole) 40 Mg Tablet PO 03/28/25 09:59 40 mg DAILY ERNESTINA Administration Discontinued Medications Generic Name Dose Route Start Last Admin Trade Name Freq PRN Reason Stop Dose Admin Acetaminophen Confirm 02/26/25 21:05 Acetaminophen 325 Mg Tablet Administered 02/26/25 21:06 Dose 650 mg .ROUTE .STK-MED ONE Albuterol Sulfate 5 mg 02/25/25 17:15 02/25/25 17:24 Albuterol Solution 2.5 Mg/0.5 Ml Ud Solution IH 03/27/25 17:14 5 mg UD ERNESTINA Administration Albuterol Sulfate Confirm 02/25/25 17:20 Albuterol Sulfate 2.5 Mg/3 Ml Neb Administered 02/25/25 17:21 Dose 2.5 mg IH .STK-MED ONE Albuterol Sulfate Confirm 02/25/25 17:23 Albuterol Solution 2.5 Mg/0.5 Ml Ud Solution Administered 02/25/25 17:24 Dose 5 mg IH .STK-MED ONE Albuterol Sulfate 4 puff 02/26/25 19:00 Albuterol Common Canister Inhaler IH 03/28/25 18:59 BIDRT ERNESTINA Albuterol/Ipratropium 3 ml 02/26/25 13:00 02/27/25 18:39 Ipratropium/Albuterol Sulfate 3 Ml Ampul.Neb IH 03/28/25 12:59 Not Given Q6HRT ERNESTINA Methylprednisolone Sodium 0 mg 02/25/25 17:09 02/25/25 17:37 Succinate 125 mg/ Sterile IV 02/25/25 17:10 125 mg Water 2 ml STAT ONE Administration Enoxaparin Sodium 40 mg 02/26/25 10:00 Enoxaparin Sodium 40 Mg/0.4 Ml Syringe SQ 03/28/25 09:59 DAILY ERNESTINA Enoxaparin Sodium 30 mg 02/26/25 10:00 Enoxaparin Sodium 30 Mg/0.3 Ml Syringe SQ 03/28/25 09:59 DAILY ERNESTINA Furosemide 80 mg 02/26/25 10:00 Furosemide 100 Mg/10 Ml Vial IV 03/28/25 09:59 DAILY ERNESTINA Sodium Chloride 1,000 mls @ 999 mls/hr 02/25/25 17:45 02/25/25 20:03 Sodium Chloride 0.9% 1000 Ml IV 02/25/25 19:45 Infused .Q1H1M ENRESTINA Infusion Piperacillin Sod/Tazobactam 100 mls @ 200 mls/hr 02/25/25 17:42 02/25/25 18:43 Sod 4.5 gm/ Sodium Chloride IV 02/25/25 18:11 Infused STAT STA Infusion Vancomycin HCl 2 gm in 400 mls @ 133.333 mls/hr 02/25/25 17:42 02/25/25 18:29 Vancomycin 2 Gram/400 Ml Bag IV 02/25/25 20:41 133.33 mls/hr STAT ONE 133.33 mls/hr Administration Acetaminophen 100 mls @ 400 mls/hr 02/25/25 17:47 02/25/25 18:23 Ofirmev IV 02/25/25 18:01 Infused STAT ONE Infusion Acetaminophen Confirm 02/25/25 17:48 Ofirmev Administered 02/25/25 17:49 Dose 100 mls @ ud IV .STK-MED ONE Sodium Chloride Confirm 02/25/25 18:10 Sodium Chloride 0.9% Administered 02/25/25 18:11 Dose 100 mls @ ud .ROUTE .STK-MED ONE Vancomycin HCl Confirm 02/25/25 18:28 Vancomycin 2 Gram/400 Ml Bag Administered 02/25/25 18:29 Dose 2 gm in 400 mls @ ud IV .STK-MED ONE Sodium Chloride Confirm 02/25/25 18:06 Sodium Chloride 0.9% 1000 Ml Administered 02/25/25 18:07 Dose 1,000 mls @ ud .ROUTE .STK-MED ONE Sodium Chloride Confirm 02/25/25 18:44 Sodium Chloride 0.9% 1000 Ml Administered 02/25/25 18:45 Dose 1,000 mls @ ud .ROUTE .STK-MED ONE Sodium Chloride Confirm 02/26/25 00:43 Sodium Chloride 0.9% 1000 Ml Administered 02/26/25 00:44 Dose 1,000 mls @ ud .ROUTE .STK-MED ONE Sodium Chloride 1,000 mls @ 100 mls/hr 02/26/25 01:00 02/26/25 00:51 Sodium Chloride 0.9% 1000 Ml IV 03/28/25 00:59 100 mls/hr .Q10H ERNESTINA Administration Remdesivir 100 mg/ Sodium 100 mls @ 100 mls/hr 02/27/25 07:15 Chloride IV 03/02/25 08:14 Q24H ERNESTINA Remdesivir 200 mg/ Sodium 250 mls @ 125 mls/hr 02/26/25 07:04 Chloride IV 02/26/25 09:03 ONCE ONE Remdesivir 200 mg/ Sodium 250 mls @ 125 mls/hr 02/26/25 09:00 02/26/25 09:36 Chloride IV 02/26/25 10:59 125 mls/hr ONCE ONE Administration Insulin Human Lispro 0 unit 02/26/25 07:04 02/26/25 12:04 Insulin Lispro 1 Unit SQ 03/28/25 07:03 7 unit UD PRN Administration HYPERGLYCEMIA Methylprednisolone Sodium Succinate Confirm 02/25/25 17:35 Methylprednis Sod Succ 125 Mg/2 Ml Vial Administered 02/25/25 17:36 Dose 125 mg .ROUTE .STK-MED ONE Methylprednisolone Sodium Succinate Confirm 02/25/25 17:36 Methylprednis Sod Succ 125 Mg/2 Ml Vial Administered 02/25/25 17:37 Dose 125 mg .ROUTE .STK-MED ONE Non-Formulary Medication 1 each 02/26/25 07:04 Pharmacy Dosing Request 02/26/25 07:05 STAT ONE Pantoprazole Sodium 40 mg 02/26/25 10:00 Pantoprazole 40 Mg Vial IV 03/28/25 09:59 Q24H10 ERNESTINA Piperacillin Sod/Tazobactam Sod Confirm 02/25/25 18:10 Piperacillin/Tazobactam Sodium 4.5 Gm Vial Administered 02/25/25 18:11 Dose 4.5 gm IV .STK-MED ONE Sterile Water Confirm 02/25/25 17:36 Water For Injection,Sterile 10 Ml Vial Administered 02/25/25 17:37 Dose 10 ml IJ .STK-MED ONE Multi-Disciplinary Progress Notes: Multi-Disciplinary Progress Notes 02/27/25 13:15 Respiratory Note by Mary Sigala PT HAS BEEN REFUSING TX. B/S CLEAR WILL DC Initialized on 02/27/25 13:15 - END OF NOTE Assessment/Plan (1) Sepsis Current Visit: Yes Status: Acute Assessment & Plan: -Meets Sepsis criteria with tachycardia, tachypneia, fever, and Covid -2LFluid resuscitation already given; reassess volume status given CHF/CKD - maintain gentle hydration -Continue empiric broad-spectrum coverage (Zosyn + Vancomycin) pending cultures. -COVID positive: -remdesivir/lovenox - on RA -was requiring BIPAP on admission -Supplemental oxygen as needed to maintain spo2> 91% -dexamethasone 6mg daily x 10 days per Covid guidelines -CMP/CBC reviewed WBC 23.2> 20.9<27.7 -Procal 7.770<7.850>2.150 -Blood culture positive for gram + cocci x 1 - final sensitivity pending -repeat blood cultures -CT chest no acute findings -Sputum pending - Monitor cultures, trend procalcitonin, CRP, and inflammatory markers. 02/28: -WBC has improved from 27.7 to 16.4. -One of two blood cultures grew Staphylococcus epidermidis, could be a contam inant; repeat cultures are pending. -She has chronic right lower extremity lymphedema, now with increased erythema, warmth, and tenderness concerning for cellulitis as a contributing factor to her sepsis -Given resistance patterns of the culture vancomycin and zosyn are being discontinued, and therapy is transitioned to levofloxacin; MRSA nasal swab will be obtained. -Podiatry consult is requested for evaluation of RLE cellulitis and assistance with compression dressings for chronic lymphedema. (2) Acute hypoxic respiratory failure Current Visit: Yes Status: Acute Assessment & Plan: see sepsis above Code(s): J96.01 - ACUTE RESPIRATORY FAILURE WITH HYPOXIA (3) High anion gap metabolic acidosis Current Visit: Yes Status: Acute Assessment & Plan: Gap 17.5, CO2 15, lactate 2.2. on admission -Likely multifactorial: sepsis, hyperglycemia, renal impairment. -Monitor cMP, ABG/VBG as indicated. -Recheck lactate now WNL 02/27: -co2 reviewed and improved at 21 -Gap WNL at 12.5 -Lactate now WNL Code(s): E87.29 - OTHER ACIDOSIS (4) Acute kidney injury superimposed on CKD Current Visit: Yes Status: Acute Assessment & Plan: -Cr 1.43 from baseline 1.3. -Likely prerenal from sepsis. -Monitor I/Os, avoid nephrotoxins (NSAIDs, contrast). -Adjust antibiotics for renal dosing. 02/27: -creat reviewed at 1.56 -continue above treatment 02/28: -Creat reviewed at 1.54 hold IVF for now with 4+ pitting edema -continue to hold lasix and nephrotoxic agents Code(s): N17.9 - ACUTE KIDNEY FAILURE, UNSPECIFIED; N18.9 - CHRONIC KIDNEY DISEASE, UNSPECIFIED (5) CHF (congestive heart failure) Current Visit: Yes Status: Acute Assessment & Plan: -Appears compensated, no acute volume overload noted. -Careful with fluids; reassess with exam/BNP. -Continue home regimen Code(s): I50.9 - HEART FAILURE, UNSPECIFIED (6) COPD exacerbation Current Visit: Yes Status: Acute Assessment & Plan: see sepsis above -Now stable on room air. -Continue inhalers, PRN bronchodilators. Code(s): J44.1 - CHRONIC OBSTRUCTIVE PULMONARY DISEASE W (ACUTE) EXACERBATION (7) HLD (hyperlipidemia) Current Visit: Yes Status: Acute Assessment & Plan: continue home regimen Code(s): E78.5 - HYPERLIPIDEMIA, UNSPECIFIED (8) Chronic pain Current Visit: Yes Status: Acute Assessment & Plan: -continue home pain meds Code(s): G89.29 - OTHER CHRONIC PAIN (9) Anxiety and depression Current Visit: Yes Status: Acute Assessment & Plan: continue home duloxetine Code(s): F41.9 - ANXIETY DISORDER, UNSPECIFIED; F32.A - DEPRESSION, UNSPECIFIED (10) HTN (hypertension) Current Visit: No Status: Acute Assessment & Plan: BP stable monitor closely Code(s): I10 - ESSENTIAL (PRIMARY) HYPERTENSION (11) Lymphedema of both lower extremities/ Left leg superimposed cellulitis Current Visit: No Status: Acute Assessment & Plan: -RLE with chronic lymphedema, now showing increased erythema, warmth, and tenderness; no fluctuance. -consult podiatry compression dressings -Patient refusing dopplers -Chronic continue home med lasix when creat at baseline -consider podiatry referral for compression dressings -see sepsis above for abx plan Code(s): I89.0 - LYMPHEDEMA, NOT ELSEWHERE CLASSIFIED (12) Morbid obesity with BMI of 50.0-59.9, adult Current Visit: No Status: Acute Assessment & Plan: -advised diet/exercise when able Code(s): E66.01 - MORBID (SEVERE) OBESITY DUE TO EXCESS CALORIES; Z68.43 - BODY MASS INDEX [BMI] 50.0-59.9, ADULT (13) Type 2 diabetes mellitus Current Visit: No Status: Chronic Assessment & Plan: -ADA diet -A1c 6.54-good control -SSI insulin -adjust accordingly with steroids VTE: Heparin PPI: protonix Dispo: 2-3 days Code status: Full code Plan of care time spent >40 mins (2) Acute hypoxic respiratory failure Current Visit: Yes Status: Acute Code(s): J96.01 - ACUTE RESPIRATORY FAILURE WITH HYPOXIA (3) High anion gap metabolic acidosis Current Visit: Yes Status: Acute Code(s): E87.29 - OTHER ACIDOSIS (4) Acute kidney injury superimposed on CKD Current Visit: Yes Status: Acute Code(s): N17.9 - ACUTE KIDNEY FAILURE, UNSPECIFIED; N18.9 - CHRONIC KIDNEY DISEASE, UNSPECIFIED (5) CHF (congestive heart failure) Current Visit: Yes Status: Acute Code(s): I50.9 - HEART FAILURE, UNSPECIFIED (6) COPD exacerbation Current Visit: Yes Status: Acute Code(s): J44.1 - CHRONIC OBSTRUCTIVE PULMONARY DISEASE W (ACUTE) EXACERBATION (7) HLD (hyperlipidemia) Current Visit: Yes Status: Acute Code(s): E78.5 - HYPERLIPIDEMIA, UNSPECIFIED (8) Chronic pain Current Visit: Yes Status: Acute Code(s): G89.29 - OTHER CHRONIC PAIN (9) Anxiety and depression Current Visit: Yes Status: Acute Code(s): F41.9 - ANXIETY DISORDER, UNSPECIFIED; F32.A - DEPRESSION, UNSPECIFIED (10) HTN (hypertension) Current Visit: No Status: Acute Code(s): I10 - ESSENTIAL (PRIMARY) HYPERTENSION (11) Lymphedema of both lower extremities Current Visit: No Status: Acute Code(s): I89.0 - LYMPHEDEMA, NOT ELSEWHERE CLASSIFIED (12) Morbid obesity with BMI of 50.0-59.9, adult Current Visit: No Status: Acute Code(s): E66.01 - MORBID (SEVERE) OBESITY DUE TO EXCESS CALORIES; Z68.43 - BODY MASS INDEX [BMI] 50.0-59.9, ADULT (13) Type 2 diabetes mellitus Current Visit: No Status: Chronic (14) Bacteremia Current Visit: Yes Status: Acute Code(s): R78.81 - BACTEREMIA (15) Cellulitis of leg without foot, right Current Visit: Yes Status: Acute Code(s): L03.115 - CELLULITIS OF RIGHT LOWER LIMB
[2025-02-28 05:58] LABS: Hematocrit 34.9 % (34.1-44.9); Hemoglobin 10.4 g/dL (11.2-15.7); Mean Corpuscular Hemoglobin 24.6 pg (25.6-32.2); Mean Corpuscular Hgb Concent. 29.8 g/dL (32.2-35.5); Platelet Count 178 x10^3/uL (182-369); Red Blood Count 4.22 x10^6/uL (3.93-5.22); White Blood Count 16.4 x10^3/uL (3.98-10.04)
[2025-02-28 06:18] LABS: Calcium 9.0 mg/dL (8.4-10.2); Carbon Dioxide 24.0 mmol/L (22-30); Creatinine 1 1.54 mg/dL (0.52-1.04); EST GLOMERULAR FILTRATION RATE 35.4 ML/MIN; Glucose 160.0 mg/dL (74-106); Potassium 3.9 mmol/L (3.5-5.1); SGOT/AST 79.0 U/L (14-36); SGPT/ALT 73.0 U/L (0-35); Total Protein 6.4 g/dL (6.3-8.2)
[2025-02-28] MEDS: PHARMACY RENAL DOSING MC ONE ×2 (08:44→11:47)
[2025-02-28] MEDS: REMDESIVIR 200 MG in Sodium Chloride 0.9% 250 ML 250 ML IV ONE (08:45)
[2025-02-28] MEDS: TROUGH DRUG LEVELS IJ ONE (10:00)
[2025-02-28] MEDS: LEVOFLOXACIN 750MG/150ML D5W 750 MG/150 ML BAG IV SCH (11:46)
[2025-03-01 05:30] LABS: Hematocrit 33.6 % (34.1-44.9); Hemoglobin 10.1 g/dL (11.2-15.7); Mean Corpuscular Hemoglobin 24.9 pg (25.6-32.2); Mean Corpuscular Hgb Concent. 30.1 g/dL (32.2-35.5); Platelet Count 159 x10^3/uL (182-369); Red Blood Count 4.05 x10^6/uL (3.93-5.22); White Blood Count 10.9 x10^3/uL (3.98-10.04)
[2025-03-01 05:47] LABS: Calcium 8.8 mg/dL (8.4-10.2); Carbon Dioxide 23.0 mmol/L (22-30); Creatinine 1 1.28 mg/dL (0.52-1.04); EST GLOMERULAR FILTRATION RATE 44.2 ML/MIN; Glucose 124.0 mg/dL (74-106); Potassium 4.1 mmol/L (3.5-5.1); SGOT/AST 44.0 U/L (14-36); SGPT/ALT 67.0 U/L (0-35); Total Protein 6.1 g/dL (6.3-8.2)
--- NOTE | 2025-03-01 07:59 | PCM.CONS ---
Podiatry HPI - Consult Date of Consultation Date: 03/01/25 Reason for Consult: venuos insufficency, cellulitis Consulting Provider: FRANCESCA PALACIO DPM Medications & Allergies Home Medications: Home Medication List Duloxetine HCl 30 mg [Cymbalta 30 MG Capsule] 60 mg PO DAILY 06/22/15 [History Confirmed 02/25/25] Lisinopril 20 mg [Zestril 20 MG] 20 mg PO DAILY 06/22/15 [History Confirmed 02/26/25] Furosemide 20 mg [Lasix 20 mg] 20 mg PO DAILY 7 Days #7 tablet 07/07/23 [Rx Confirmed 02/25/25] Metformin HCl 500 mg [Glucophage 500 MG] 1,000 mg PO DAILY 11/02/24 [History Confirmed 02/26/25] Oxycodone / APAP 10/325 mg [Oxycodone-Acetaminophen 10-325] 1 tab PO Q6HPRN PRN MDD 6 02/25/25 [History Confirmed 02/26/25] Sennosides [Senna] 8.6 mg PO DAILY 02/25/25 [History Confirmed 02/25/25] Tolterodine Tartrate 1 mg PO BID 02/25/25 [History Confirmed 02/25/25] Gabapentin [Gabarone] 100 mg PO DAILY 02/26/25 [History Confirmed 02/26/25] Allergies/Adverse Reactions: Allergies Allergy/AdvReac Type Severity Reaction Status Date / Time latex Allergy Intermediate Blisters Verified 02/25/25 17:10 erythromycin base AdvReac Severe Nausea Verified 02/25/25 17:10 Sulfa (Sulfonamide AdvReac Severe Nausea Verified 02/25/25 17:10 Antibiotics) - Past Medical History Past Medical History: Yes Neurological History: No Pertinent History, Other ENT History: No Pertinent History Cardiac History: Congestive Heart Failure, High Cholesterol, Hypertension Respiratory History: COPD Endocrine Medical History: No Pertinent History Musculoskelatal History: Fibromyalgia, Osteoarthritis GI Medical History: GERD, Hernia History: No Pertinent History Pyscho-Social History: Anxiety, Depression Reproductive Disorders: Fibroids, Other Comment: depression. cellulitis in bilateral lower legs - Past Surgical History Past Surgical History: Yes Neuro Surgical History: No Pertinent History Cardiac History: No Pertinent History Respiratory Surgery: No Pertinent History GI Surgical History: No Pertinent History Genitourinary Surgical Hx: No Pertinent History Musculskeletal Surgical Hx: No Pertinent History Female Surgical History: Other Other Surgical History: D&C, dental extractions, EGD - Social History Smoking Status: Unknown if ever smoked Exposure to second hand smoke: No Alcohol: None Drug Use: none - Social Determinants of Health Will the patient participate in the screening: Unable to obtain Do you worry about a steady place to live?: No In the past 12 months,have you had to go without utilities?: No Have you or anyone in your house had to go without enough: No Transportation Issues: No Has anyone in your support network made you feel unsafe?: No Does the patient want assistance with any of the above?: No Physical Exam - Narrative Narrative Physical Exam: Podiatry Physical Exam Results - Labs Lab/Micro Results: Lab Results-Last 24 Hours 02/28/25 02/28/25 02/28/25 Range/Units 08:00 09:46 12:11 WBC (3.98-10.04) x10^3/uL RBC (3.93-5.22) x10^6/uL Hgb (11.2-15.7) g/dL Hct (34.1-44.9) % MCV (79.4-94.8) fL MCH (25.6-32.2) pg MCHC (32.2-35.5) g/dL RDW (11.7-14.4) % Plt Count (182-369) x10^3/uL MPV (9.4-12.3) fL Sodium (135-145) mmol/L Potassium (3.5-5.1) mmol/L Chloride (98-107) mmol/L Carbon Dioxide (22-30) mmol/L Anion Gap (5-15) MEQ/L BUN (7-17) mg/dL Creatinine (0.52-1.04) mg/dL Estimated GFR ML/MIN Glucose (74-106) mg/dL POC Glucometer 143 H 248 H (74 to 106) mg/dL Calcium (8.4-10.2) mg/dL Total Bilirubin (0.2-1.3) mg/dL AST (14-36) U/L ALT (0-35) U/L Alkaline Phosphatase (38-126) U/L Serum Total Protein (6.3-8.2) g/dL Albumin (3.5-5.0) g/dL Nasal Screen MRSA (PCR) (NEGATIVE) Vancomycin Trough 14.13 (10-20) ug/mL 02/28/25 02/28/25 02/28/25 Range/Units 14:52 16:53 21:24 WBC (3.98-10.04) x10^3/uL RBC (3.93-5.22) x10^6/uL Hgb (11.2-15.7) g/dL Hct (34.1-44.9) % MCV (79.4-94.8) fL MCH (25.6-32.2) pg MCHC (32.2-35.5) g/dL RDW (11.7-14.4) % Plt Count (182-369) x10^3/uL MPV (9.4-12.3) fL Sodium (135-145) mmol/L Potassium (3.5-5.1) mmol/L Chloride (98-107) mmol/L Carbon Dioxide (22-30) mmol/L Anion Gap (5-15) MEQ/L BUN (7-17) mg/dL Creatinine (0.52-1.04) mg/dL Estimated GFR ML/MIN Glucose (74-106) mg/dL POC Glucometer 265 H 186 H (74 to 106) mg/dL Calcium (8.4-10.2) mg/dL Total Bilirubin (0.2-1.3) mg/dL AST (14-36) U/L ALT (0-35) U/L Alkaline Phosphatase (38-126) U/L Serum Total Protein (6.3-8.2) g/dL Albumin (3.5-5.0) g/dL Nasal Screen MRSA (PCR) NOT DETECTED (NEGATIVE) Vancomycin Trough (10-20) ug/mL 03/01/25 03/01/25 Range/Units 05:05 05:05 WBC 10.9 H (3.98-10.04) x10^3/uL RBC 4.05 (3.93-5.22) x10^6/uL Hgb 10.1 L (11.2-15.7) g/dL Hct 33.6 L (34.1-44.9) % MCV 83.0 (79.4-94.8) fL MCH 24.9 L (25.6-32.2) pg MCHC 30.1 L (32.2-35.5) g/dL RDW 13.5 (11.7-14.4) % Plt Count 159 L (182-369) x10^3/uL MPV 11.2 (9.4-12.3) fL Sodium 136 (135-145) mmol/L Potassium 4.1 (3.5-5.1) mmol/L Chloride 107 (98-107) mmol/L Carbon Dioxide 23 (22-30) mmol/L Anion Gap 9.7 (5-15) MEQ/L BUN 36 H (7-17) mg/dL Creatinine 1.28 H (0.52-1.04) mg/dL Estimated GFR 44.2 ML/MIN Glucose 124 H (74-106) mg/dL POC Glucometer (74 to 106) mg/dL Calcium 8.8 (8.4-10.2) mg/dL Total Bilirubin 0.20 (0.2-1.3) mg/dL AST 44 H (14-36) U/L ALT 67 H (0-35) U/L Alkaline Phosphatase 91 (38-126) U/L Serum Total Protein 6.1 L (6.3-8.2) g/dL Albumin 3.1 L (3.5-5.0) g/dL Nasal Screen MRSA (PCR) (NEGATIVE) Vancomycin Trough (10-20) ug/mL Microbiology 02/25/25 17:50 Blood Culture Gram Stain - Final Blood Blood Culture - Preliminary Staphylococcus Epidermidis 02/25/25 18:00 Blood Culture - Preliminary Blood NO GROWTH TO DATE Accuchecks Date 02/28/25 Date 02/28/25 Time 17:09 Time 12:18 - Radiology Impressions Radiology Exams & Impressions: Radiology Procedures Category Date Time Status CHEST WITHOUT CONTRAST [CT] Stat Exams 02/27/25 08:24 Completed Assessment/Plan (1) Bacteremia Current Visit: Yes Status: Acute Code(s): R78.81 - BACTEREMIA (2) CHF (congestive heart failure) Current Visit: Yes Status: Acute Code(s): I50.9 - HEART FAILURE, UNSPECIFIED (3) COPD exacerbation Current Visit: Yes Status: Acute Code(s): J44.1 - CHRONIC OBSTRUCTIVE PULMONARY DISEASE W (ACUTE) EXACERBATION (4) Cellulitis of leg without foot, right Current Visit: Yes Status: Acute Code(s): L03.115 - CELLULITIS OF RIGHT LOWER LIMB (5) Sepsis Current Visit: Yes Status: Acute (6) CHF (congestive heart failure) Current Visit: No Status: Acute Code(s): I50.9 - HEART FAILURE, UNSPECIFIED (7) Cellulitis and abscess of left leg Current Visit: No Status: Acute Assessment & Plan: Patient examination evaluation Venous insufficiency noted to the bilateral lower extremity with brawny edema. some indication at this time of resolving cellulitis to the bilateral lower extremity. Some areas are lymphedematous due to their nonpitting nature and induration of the soft tissue. Venous Dopplers refused due to pain Discussed prescription for lymphedema pumps- patient will consider this option. Measurement to be obtained before discharge. Unna boot applied to the bilateral lower extremity Will follow with you Code(s): L03.116 - CELLULITIS OF LEFT LOWER LIMB; L02.416 - CUTANEOUS ABSCESS OF LEFT LOWER LIMB
[2025-03-01 08:25] VITALS: RESP 16; TEMP 97.9
[2025-03-01 12:04] VITALS: BP 185/81; PULSE 101; O2SAT 94
--- NOTE | 2025-03-01 12:14 | PCM.DS ---
Discharge Summary Date of Admission: 02/25/25 20:43 Date of Discharge: 03/01/25 Admitting Physician: BETO GOMEZ MD Consults: Consults on Case 02/28/25 12:36 Consult Podiatry ROUTINE Primary Care Provider: YOKO SANCHEZ Allergies Allergies latex Allergy (Intermediate, Verified 02/25/25 17:10) Blisters erythromycin base Adverse Reaction (Severe, Verified 02/25/25 17:10) Nausea Sulfa (Sulfonamide Antibiotics) Adverse Reaction (Severe, Verified 02/25/25 17:10) Nausea Hospital Summary - Hospital Course Hospital Course: The patient is a 74-year-old female with a history of CHF (EF 58%), diabetes, hypertension, hyperlipidemia, COPD (on room air at baseline), CKD (baseline Cr 1.3), and chronic lymphedema who was admitted on 02/26/25 with COVID-19 infection complicated by sepsis. She met sepsis criteria with fever of 104.2, tachycardia to 140, tachypnea requiring BiPAP, leukocytosis, rising procalcitonin, metabolic acidosis, ARLINE, hyperglycemia, and elevated bilirubin. She was treated with IV fluids, steroids, antibiotics (vancomycin and Zosyn), and remdesivir, and was successfully weaned to room air. CT chest showed no acute pulmonary findings. One of two blood cultures grew Staphylococcus epidermidis, felt most consistent with contamination, and repeat cultures were negative. During hospitalization, she developed erythema, warmth, and tenderness of her chronically edematous right lower extremity, concerning for cellulitis, and podiatry was consulted for management. Compression dressings were initiated, and case management arranged home health support. Her ARLINE resolved, and she remained stable on room air with SpO2 97%. At discharge on 03/01/25, she reported improvement in dyspnea but continued to have diarrhea, likely from COVID or medication effects, for which probiotics were recommended. She will continue outpatient follow-up with her PCP, and COVID treatment guidelines and medication instructions were provided. - Vitals & Intake/Output Vital Signs: Vital Signs Temperature 97.9 F 03/01/25 12:00 Pulse Rate 101 H 03/01/25 12:00 Respiratory Rate 16 03/01/25 12:00 Blood Pressure 185/81 03/01/25 12:00 O2 Sat by Pulse Oximetry 94 L 03/01/25 12:00 Intake & Output: Intake & Output 02/27/25 02/28/25 03/01/25 03/02/25 11:59 11:59 11:59 11:59 Intake Total 1979 1540 2109 Output Total 300 600 Balance 1979 1240 1509 Weight 137.5 kg - Lab Result Diagrams: 03/01/25 05:05 03/01/25 05:05 Lab Results-Last 24 Hrs: Lab Results-Last 24 Hours 02/28/25 02/28/25 02/28/25 Range/Units 09:46 12:11 14:52 WBC (3.98-10.04) x10^3/uL RBC (3.93-5.22) x10^6/uL Hgb (11.2-15.7) g/dL Hct (34.1-44.9) % MCV (79.4-94.8) fL MCH (25.6-32.2) pg MCHC (32.2-35.5) g/dL RDW (11.7-14.4) % Plt Count (182-369) x10^3/uL MPV (9.4-12.3) fL Sodium (135-145) mmol/L Potassium (3.5-5.1) mmol/L Chloride (98-107) mmol/L Carbon Dioxide (22-30) mmol/L Anion Gap (5-15) MEQ/L BUN (7-17) mg/dL Creatinine (0.52-1.04) mg/dL Estimated GFR ML/MIN Glucose (74-106) mg/dL POC Glucometer 248 H (74 to 106) mg/dL Calcium (8.4-10.2) mg/dL Total Bilirubin (0.2-1.3) mg/dL AST (14-36) U/L ALT (0-35) U/L Alkaline Phosphatase (38-126) U/L Serum Total Protein (6.3-8.2) g/dL Albumin (3.5-5.0) g/dL Nasal Screen MRSA (PCR) NOT DETECTED (NEGATIVE) Vancomycin Trough 14.13 (10-20) ug/mL 02/28/25 02/28/25 03/01/25 Range/Units 16:53 21:24 05:05 WBC 10.9 H (3.98-10.04) x10^3/uL RBC 4.05 (3.93-5.22) x10^6/uL Hgb 10.1 L (11.2-15.7) g/dL Hct 33.6 L (34.1-44.9) % MCV 83.0 (79.4-94.8) fL MCH 24.9 L (25.6-32.2) pg MCHC 30.1 L (32.2-35.5) g/dL RDW 13.5 (11.7-14.4) % Plt Count 159 L (182-369) x10^3/uL MPV 11.2 (9.4-12.3) fL Sodium (135-145) mmol/L Potassium (3.5-5.1) mmol/L Chloride (98-107) mmol/L Carbon Dioxide (22-30) mmol/L Anion Gap (5-15) MEQ/L BUN (7-17) mg/dL Creatinine (0.52-1.04) mg/dL Estimated GFR ML/MIN Glucose (74-106) mg/dL POC Glucometer 265 H 186 H (74 to 106) mg/dL Calcium (8.4-10.2) mg/dL Total Bilirubin (0.2-1.3) mg/dL AST (14-36) U/L ALT (0-35) U/L Alkaline Phosphatase (38-126) U/L Serum Total Protein (6.3-8.2) g/dL Albumin (3.5-5.0) g/dL Nasal Screen MRSA (PCR) (NEGATIVE) Vancomycin Trough (10-20) ug/mL 03/01/25 03/01/25 03/01/25 Range/Units 05:05 08:08 11:27 WBC (3.98-10.04) x10^3/uL RBC (3.93-5.22) x10^6/uL Hgb (11.2-15.7) g/dL Hct (34.1-44.9) % MCV (79.4-94.8) fL MCH (25.6-32.2) pg MCHC (32.2-35.5) g/dL RDW (11.7-14.4) % Plt Count (182-369) x10^3/uL MPV (9.4-12.3) fL Sodium 136 (135-145) mmol/L Potassium 4.1 (3.5-5.1) mmol/L Chloride 107 (98-107) mmol/L Carbon Dioxide 23 (22-30) mmol/L Anion Gap 9.7 (5-15) MEQ/L BUN 36 H (7-17) mg/dL Creatinine 1.28 H (0.52-1.04) mg/dL Estimated GFR 44.2 ML/MIN Glucose 124 H (74-106) mg/dL POC Glucometer 130 H 253 H (74 to 106) mg/dL Calcium 8.8 (8.4-10.2) mg/dL Total Bilirubin 0.20 (0.2-1.3) mg/dL AST 44 H (14-36) U/L ALT 67 H (0-35) U/L Alkaline Phosphatase 91 (38-126) U/L Serum Total Protein 6.1 L (6.3-8.2) g/dL Albumin 3.1 L (3.5-5.0) g/dL Nasal Screen MRSA (PCR) (NEGATIVE) Vancomycin Trough (10-20) ug/mL Micro Results-Entire Visit: Microbiology 02/27/25 11:40 Blood Culture - Preliminary Blood 02/27/25 10:40 Blood Culture - Preliminary Blood 02/25/25 17:50 Blood Culture Gram Stain - Final Blood Blood Culture - Preliminary Staphylococcus Epidermidis 02/25/25 18:00 Blood Culture - Preliminary Blood NO GROWTH TO DATE Accuchecks Date 03/01/25 Date 03/01/25 Date 02/28/25 Time 12:05 Time 08:18 Time 17:09 - Procedures and Test Procedures and Tests throughout Hospitalization: Therapy Orders & Screens 02/25/25 17:25 BiPap/CPAP STAT Comment: 02/25/25 17:47 Respiratory Therapy Assessment ONCE Comment: Standby STAT Comment: 02/25/25 20:07 Respiratory Therapy Consult ONCE Comment: Reason For Exam: 02/26/25 07:04 Respiratory MDI UD Comment: Diagnosis: sepsis, covid Respiratory Therapy Consult ROUTINE Comment: Reason For Exam: Diagnosis: sepsis, covid 02/26/25 07:26 Respiratory Therapy Consult ROUTINE Comment: Reason For Exam: Diagnosis: sepsis, covid 02/26/25 08:12 Incentive Spirometry UD Comment: Diagnosis: sepsis, covid Discharge Exam General Appearance: no apparent distress, alert, obese Neurologic Exam: alert, oriented x 3, cooperative, normal mood/affect, nml cerebellar function, sensation nml, No motor deficits Eye Exam: PERRL, EOMI, eyes nml inspection Ears, Nose, Throat Exam: normal ENT inspection, pharynx normal, moist mucous membranes Neck Exam: normal inspection, non-tender, supple, full range of motion Respiratory Exam: normal breath sounds, lungs clear, No respiratory distress Cardiovascular Exam: regular rate/rhythm, normal heart sounds Gastrointestinal/Abdomen Exam: soft, No tenderness, No mass Pelvic Exam: deferred Rectal Exam: deferred Back Exam: normal inspection, normal range of motion, No CVA tenderness, No vertebral tenderness Extremity Exam: normal inspection, normal range of motion, tenderness (BLLE- chronic edmea of BLLE) Skin Exam: normal color, warm, dry, other (BLLE wrapped) Wound Assessment: Skin/Wound Assessment Wound/Incision Assessment Start: 02/25/25 23:02 Text: Status: Active Freq: Q6H Protocol: Document 03/01/25 02:10 AK (Rec: 03/01/25 02:12 ME [id number]) Wound/Incision Assessment Buttock Wound Assessment Shift Assessment Wound Type Pressure Ulcer Wound Stage Stage II Drainage Amount None General Appearance Open to air,Reddened Surrounding Tissue Bright Red Comment barrier cream/zinc applied prn Wound Photo Photo Taken No Final Diagnosis/Problem List - Final Discharge Diagnosis/Problem (1) Sepsis Current Visit: Yes Status: Acute (2) COVID Current Visit: Yes Status: Acute Code(s): U07.1 - COVID-19 (3) Acute hypoxic respiratory failure Current Visit: Yes Status: Acute Code(s): J96.01 - ACUTE RESPIRATORY FAILURE WITH HYPOXIA (4) Cellulitis of both lower extremities Current Visit: Yes Status: Acute Code(s): L03.115 - CELLULITIS OF RIGHT LOWER LIMB; L03.116 - CELLULITIS OF LEFT LOWER LIMB (5) Acute kidney injury superimposed on CKD Current Visit: Yes Status: Acute Code(s): N17.9 - ACUTE KIDNEY FAILURE, UNSPECIFIED; N18.9 - CHRONIC KIDNEY DISEASE, UNSPECIFIED (6) Anxiety and depression Current Visit: Yes Status: Acute Code(s): F41.9 - ANXIETY DISORDER, UNSPECIFIED; F32.A - DEPRESSION, UNSPECIFIED (7) CHF (congestive heart failure) Current Visit: Yes Status: Acute Code(s): I50.9 - HEART FAILURE, UNSPECIFIED (8) COPD exacerbation Current Visit: Yes Status: Acute Code(s): J44.1 - CHRONIC OBSTRUCTIVE PULMONARY DISEASE W (ACUTE) EXACERBATION (9) Chronic pain Current Visit: Yes Status: Acute Code(s): G89.29 - OTHER CHRONIC PAIN (10) HLD (hyperlipidemia) Current Visit: Yes Status: Acute Code(s): E78.5 - HYPERLIPIDEMIA, UNSPECIFIED (11) High anion gap metabolic acidosis Current Visit: Yes Status: Acute Code(s): E87.29 - OTHER ACIDOSIS (12) HTN (hypertension) Current Visit: No Status: Acute Code(s): I10 - ESSENTIAL (PRIMARY) HYPERTENSION (13) Lymphedema of both lower extremities Current Visit: No Status: Acute Code(s): I89.0 - LYMPHEDEMA, NOT ELSEWHERE CLASSIFIED (14) Morbid obesity with BMI of 50.0-59.9, adult Current Visit: No Status: Acute Code(s): E66.01 - MORBID (SEVERE) OBESITY DUE TO EXCESS CALORIES; Z68.43 - BODY MASS INDEX [BMI] 50.0-59.9, ADULT (15) Type 2 diabetes mellitus Current Visit: No Status: Acute Assessment & Plan: (1) Sepsis Current Visit: Yes Status: Acute Assessment & Plan: -Meets Sepsis criteria with tachycardia, tachypneia, fever, and Covid -2LFluid resuscitation already given; reassess volume status given CHF/CKD - maintain gentle hydration -Continue empiric broad-spectrum coverage (Zosyn + Vancomycin) pending cultures. -COVID positive: -remdesivir/lovenox - on RA -was requiring BIPAP on admission -Supplemental oxygen as needed to maintain spo2> 91% -dexamethasone 6mg daily x 10 days per Covid guidelines -CMP/CBC reviewed WBC 23.2> 20.9<27.7 -Procal 7.770<7.850>2.150 -Blood culture positive for gram + cocci x 1 - final sensitivity pending -repeat blood cultures -CT chest no acute findings -Sputum pending - Monitor cultures, trend procalcitonin, CRP, and inflammatory markers. 02/28: -WBC has improved from 27.7 to 16.4. -One of two blood cultures grew Staphylococcus epidermidis, could be a contaminant; repeat cultures are pending. -She has chronic right lower extremity lymphedema, now with increased erythema, warmth, and tenderness concerning for cellulitis as a contributing factor to her sepsis -Given resistance patterns of the culture vancomycin and zosyn are being discontinued, and therapy is transitioned to levofloxacin; MRSA nasal swab will be obtained. -Podiatry consult is requested for evaluation of RLE cellulitis and assistance with compression dressings for chronic lymphedema. 03/01 - CBC, CMP reviewed - RA 97% - repeat BC x2 negative - WBC 10.9- improved- likely elevated d/t steroids (2) Acute hypoxic respiratory failure Current Visit: Yes Status: Acute Assessment & Plan: see sepsis above 03/01 - resolved - RA 97% Code(s): J96.01 - ACUTE RESPIRATORY FAILURE WITH HYPOXIA (3) High anion gap metabolic acidosis Current Visit: Yes Status: Acute Assessment & Plan: 03/01 - resolved Code(s): E87.29 - OTHER ACIDOSIS (4) Acute kidney injury superimposed on CKD Current Visit: Yes Status: Acute Assessment & Plan: - Creat 1.28- at baseline - resume home meds Code(s): N17.9 - ACUTE KIDNEY FAILURE, UNSPECIFIED; N18.9 - CHRONIC KIDNEY DISEASE, UNSPECIFIED (5) CHF (congestive heart failure) Current Visit: Yes Status: Acute Assessment & Plan: -Appears compensated, no acute volume overload noted. -Careful with fluids; reassess with exam/BNP. -Continue home regimen Code(s): I50.9 - HEART FAILURE, UNSPECIFIED (6) COPD exacerbation Current Visit: Yes Status: Acute Assessment & Plan: see sepsis above -Now stable on room air 97% -Continue inhalers, PRN bronchodilators. Code(s): J44.1 - CHRONIC OBSTRUCTIVE PULMONARY DISEASE W (ACUTE) EXACERBATION (7) HLD (hyperlipidemia) Current Visit: Yes Status: Acute Assessment & Plan: - Continue home regimen Code(s): E78.5 - HYPERLIPIDEMIA, UNSPECIFIED (8) Chronic pain Current Visit: Yes Status: Acute Assessment & Plan: -Continue home pain meds Code(s): G89.29 - OTHER CHRONIC PAIN (9) Anxiety and depression Current Visit: Yes Status: Acute Assessment & Plan: - Continue home duloxetine Code(s): F41.9 - ANXIETY DISORDER, UNSPECIFIED; F32.A - DEPRESSION, UNSPECIFIED (10) HTN (hypertension) Current Visit: No Status: Acute Assessment & Plan: -BP stable monitor closely Code(s): I10 - ESSENTIAL (PRIMARY) HYPERTENSION (11) Lymphedema of both lower extremities/ Left leg superimposed cellulitis Current Visit: No Status: Acute Assessment & Plan: -RLE with chronic lymphedema, now showing increased erythema, warmth, and tenderness; no fluctuance. -consult podiatry compression dressings -Patient refusing dopplers -Chronic continue home med lasix when creat at baseline -consider podiatry referral for compression dressings -see sepsis above for abx plan 03/01 - Podiatry assessed and legs wrapped per podiatry orders - Pt to f/u OP with podiatry - PO antibiotic OP Code(s): I89.0 - LYMPHEDEMA, NOT ELSEWHERE CLASSIFIED (12) Morbid obesity with BMI of 50.0-59.9, adult Current Visit: No Status: Acute Assessment & Plan: -advised diet/exercise when able Code(s): E66.01 - MORBID (SEVERE) OBESITY DUE TO EXCESS CALORIES; Z68.43 - BODY MASS INDEX [BMI] 50.0-59.9, ADULT (13) Type 2 diabetes mellitus Current Visit: No Status: Chronic Assessment & Plan: -ADA diet -A1c 6.54-good control -SSI insulin -adjust accordingly with steroids 14.) COVID - acute - remdesivir/lovenox - Probiotiocs for diarrhea Plan of care d/c time > 42 minutes - Discharge Discharge Date: 03/01/25 Disposition: HOME HEALTH SERVICE Condition: Stable Prescriptions: New Nystatin Powder 15 gm [Nystop Powder 15 gm] 1 gm TP BID Continue Lisinopril 20 mg [Zestril 20 MG] 20 mg PO DAILY Duloxetine HCl 30 mg [Cymbalta 30 MG Capsule] 60 mg PO DAILY Furosemide 20 mg [Lasix 20 mg] 20 mg PO DAILY 7 Days #7 tablet Metformin HCl 500 mg [Glucophage 500 MG] 1,000 mg PO DAILY Oxycodone / APAP 10/325 mg [Oxycodone-Acetaminophen 10-325] 1 tab PO Q6HPRN PRN MDD 6 PRN Reason: Pain Sennosides [Senna] 8.6 mg PO DAILY Tolterodine Tartrate 1 mg PO BID Gabapentin [Gabarone] 100 mg PO DAILY Instructions: COVID-19 in adults - Discharge instructions, COVID-19 vaccines, Cellulitis (skin infection) in adults - Discharge instructions Additional Instructions[facility] WILL CONTACT YOU TO ARRANGE A TIME TO COME SEE YOU. THEIR PHONE # IS [phone]. * Take OTC Probiotocs for diarrhea as this may be helpful for your symptoms. Follow up with: FRANCESCA PALACIO DPM [ACTIVE STAFF, PODIATRY] - 03/08/25 1:30 pm YOKO SANCHEZ [Primary Care Provider, [facility]ILY [facility]ICE] - 03/11/25 9:30 am
== END 2025-03-01 14:35 | disposition home health service (06) | DRG 871 ==
LOC: ED 17:02 → MED SURG 20:43
PROVIDERS: ADMIT Internal Medicine; ATTEND Internal Medicine
PROC: 2W1MX6Z Compression of Left Lower Extremity using Pressure Dressing (ICD-10-PCS; principal; 2025-03-01)
PROC: 2W1LX6Z Compression of Right Lower Extremity using Pressure Dressing (ICD-10-PCS; 2025-03-01)
DX: A41.9 Sepsis, unspecified organism (principal); J96.01 Acute respiratory failure with hypoxia; U07.1 COVID-19; L03.115 Cellulitis of right lower limb; L03.116 Cellulitis of left lower limb; N17.9 Acute kidney failure, unspecified; J44.1 Chronic obstructive pulmonary disease with (acute) exacerbation; L02.416 Cutaneous abscess of left lower limb; E87.29 Other acidosis; Z68.43 Body mass index [BMI] 50.0-59.9, adult; I12.9 Hypertensive chronic kidney disease with stage 1 through stage 4 chronic kidney disease, or unspecified chronic kidney disease; E11.22 Type 2 diabetes mellitus with diabetic chronic kidney disease; N18.9 Chronic kidney disease, unspecified; I50.9 Heart failure, unspecified; E11.65 Type 2 diabetes mellitus with hyperglycemia; E78.5 Hyperlipidemia, unspecified; J44.9 Chronic obstructive pulmonary disease, unspecified; D72.829 Elevated white blood cell count, unspecified; F41.9 Anxiety disorder, unspecified; F32.A Depression, unspecified; G89.29 Other chronic pain; I89.0 Lymphedema, not elsewhere classified; E66.01 Morbid (severe) obesity due to excess calories; R60.0 Localized edema; Z79.899 Other long term (current) drug therapy
CPT/HCPCS: 29580; 36415; 36600; 51702; 71045; 71250; 80048; 80053; 80143; 80202; 81001; 82375; 82803; 82947; 83036; 83605; 83735; 83880; 84134; 84145; 84484; 85025; 85027; 85379; 85610; 85730; 87040; 87077; 87186; 87637; 87641; 93005; 93041; 94002; 94640; 94762; 94799; 96374; 99285; Q3014